=== PATIENT | male | born 1945 | race Caucasian/White ===

== ENCOUNTER 2016-08-24 15:20 | Emergency (ER) | payer MEDICARE, OTHER ==
--- NOTE | 2016-08-24 16:53 | RAD ---
INDICATION: Weakness COMPARISON: Most recent comparison chest x-rays dated November 17, 2007 TECHNIQUE: PA and lateral views of the chest were obtained. FINDINGS: There is been interval placement of a left upper chest cardiac pacemaker with one lead overlying the heart. The heart is not pathologically enlarged. There is faint calcification overlying the arch of the aorta. The contours of the heart and mediastinum are within normal limits. The right lung is grossly clear. There is linear density at the left lung base causing left costophrenic angle blunting. Visualized bones are normal for the patient's age. There is no radiographic evidence of free air beneath the diaphragm IMPRESSION: LIKELY INTERVAL APPEARANCE OF A LEFT-SIDED PLEURAL EFFUSION WITH ADJACENT COMPRESSIVE ATELECTASIS.
[2016-08-24 17:46] LABS: Hematocrit 46 % (42-52); Hemoglobin 15.1 g/dl (14.0-18.0); Mean Corpuscular HGB Conc 33 g/dl (31-36); Mean Corpuscular Hemoglobin 29 pg (27-31); Mean Corpuscular Volume 89 fL (80-94); Mean Platelet Volume 11 um3 (7.4-10.4); Red Cell Distribution Width 13 % (10.5-15); White Blood Count 11.5 10^3/ul (3.5-10.8)
[2016-08-24 17:57] LABS: Add Diff/Slide Review? Slide Review Added; Comments Flag Yes
[2016-08-24 18:01] LABS: Albumin 3.8 g/dL (3.2-5.2); BUN/Creatinine Ratio 17.4 (8-20); Calcium 9.4 mg/dL (8.6-10.3); EGFR African American 80.2 (>60); EGFR Non-African American 62.3 (>60); Globulin 3.2 g/dL (2-4); Total Bilirubin 0.4 mg/dL (0.2-1.0)
[2016-08-24 18:03] LABS: Troponin I 0.01 ng/mL (<0.04)
[2016-08-24 18:14] LABS: TSH (Thyroid Stimulating Horm) 0.54 mcIU/mL (0.34-5.60)
[2016-08-24 18:18] LABS: Potassium 4.1 mmol/L (3.5-5.0)
[2016-08-24 19:08] LABS: Urine Bilirubin Negative (Negative); Urine Glucose Negative (Negative); Urine Nitrite Negative (Negative)
--- NOTE | 2016-08-24 20:23 | RAD ---
INDICATION: Dizziness COMPARISON: CT brain May 26, 2014 TECHNIQUE: Noncontrast axial source images were acquired from the skull base to the vertex. FINDINGS: Ventricles/sulci: The ventricles and cisterns are normal in size and configuration for age. Brain parenchyma: There is no acute focal parenchymal finding, evidence of intracranial mass, or intracranial mass effect. 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 Extra-axial spaces: There are no abnormal extra axial fluid collections or evidence of extra-axial mass. Calvarium: There is no calvarial fracture or other calvarial abnormality. Scalp: There is no evidence of scalp or extracalvarial soft tissue abnormality. Paranasal sinuses/mastoid: The paranasal sinuses and mastoid air cells are clear. Other: None. 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 No acute intracranial findings.
[2016-08-24 21:08] VITALS: BP 123/74
--- NOTE | 2016-08-24 22:04 | ED ---
Ivy Lutz Erika, scribed for Diaz Redman MD on 08/24/16 at 1649 . Dizziness - HPI Summary HPI Summary: Patient is a 71-year-old male presenting to the ED with a CC of lightheadedness. Patient reports that he has been constantly fatigued for the past 2-3 weeks, and has difficulty walking due to fatigue. He notes associated SOB with this. Patient also reports intermittent lightheadedness for the same amount of time, which has been gradually worsening. Pt states he has not fallen. He denies chest pain and pedal edema. Patient reports he is asymptomatic while lying down. - History Of Current Complaint Chief Complaint: EDDizziness Stated Complaint: FATIGUE,DIZZINESS Time Seen by Provider: 08/24/16 15:35 Hx Obtained From: Patient, Family/Supervisor Net Making - Onset/Duration: Still Present Timing: Intermittent Episode Lasting - minutes Severity Currently: Moderate Character: Lightheaded Aggravating Factor(s): Supine To Erect Alleviating Factor(s): Rest, Lying Down Associated Signs And Symptoms: Positive: SOB, Other: - fatigue. Negative: Chest Pain - Allergies/Home Medications Allergies/Adverse Reactions: Allergies Allergy/AdvReac Type Severity Reaction Status Date / Time Heparin Allergy Unknown Verified 08/24/16 15:27 Reaction Details Iodine Allergy Unknown Verified 08/24/16 15:27 Reaction Details PMH/Surg Hx/FS Hx/Imm Hx Cardiovascular History: Reports: Hx Coronary Artery Disease, Hx Hypertension Musculoskeletal History: Reports: Hx Back Problems Sensory History: Reports: Hx Contacts or Glasses - Reading glasses Opthamlomology History: Reports: Hx Contacts or Glasses - Reading glasses - Surgical History Surgery Procedure, Year, and Place: Hx of back surgery, cardiac cath, appendectomy Infectious Disease History: No Infectious Disease History: Denies: Traveled Outside the [place] in Last 30 Days - Family History Known Family History: Positive: Cardiac Disease - CAD, [place] - Social History Lives: With Family Alcohol Use: None Hx Substance Use: No Substance Use Type: Reports: None Hx Tobacco Use: No Smoking Status (MU): Never Smoked Tobacco Review of Systems Positive: Fatigue Negative: Chest Pain Positive: Shortness Of Breath Negative: Edema Neurological: Other - lightheadedness All Other Systems Reviewed And Are Negative: Yes Physical Exam Triage Information Reviewed: Yes Vital Signs On Initial Exam: Initial Vitals Temp Pulse Resp BP Pulse Ox 97.3 F 92 18 138/80 97 08/24/16 15:21 08/24/16 15:21 08/24/16 15:21 08/24/16 15:21 08/24/16 15:21 Vital Signs Reviewed: Yes Appearance: Positive: Well-Appearing, No Pain Distress Skin: Positive: Warm, Skin Color Reflects Adequate Perfusion, Dry Head/Face: Positive: Normal Head/Face Inspection Eyes: Positive: Normal ENT: Positive: Normal ENT inspection Respiratory/Lung Sounds: Positive: Clear to Auscultation, Breath Sounds Present Cardiovascular: Positive: RRR Abdomen Description: Positive: Nontender, Soft Bowel Sounds: Positive: Present Musculoskeletal: Positive: Normal Neurological: Positive: Normal Psychiatric: Positive: Affect/Mood Appropriate Diagnostics - Vital Signs Vital Signs Temp Pulse Resp BP Pulse Ox 08/24/16 15:24 97.3 F 90 19 138/80 96 08/24/16 15:21 97.3 F 92 18 138/80 97 - Laboratory Lab Results: Lab Results 08/24/16 08/24/16 08/24/16 Range/Units 17:30 17:30 17:30 WBC 11.5 H (3.5-10.8) 10^3/ul RBC 5.20 (4.0-5.4) 10^6/ul Hgb 15.1 (14.0-18.0) g/dl Hct 46 (42-52) % MCV 89 (80-94) fL MCH 29 (27-31) pg MCHC 33 (31-36) g/dl RDW 13 (10.5-15) % Plt Count 205 (150-450) 10^3/ul MPV 11 H (7.4-10.4) um3 Neut % (Auto) 68.1 (38-83) % Lymph % (Auto) 19.7 L (25-47) % Sharkey % (Auto) 10.9 H (1-9) % Eos % (Auto) 1.1 (0-6) % Baso % (Auto) 0.2 (0-2) % Absolute Neuts (auto) 7.9 H (1.5-7.7) 10^3/ul Absolute Lymphs (auto) 2.3 (1.0-4.8) 10^3/ul Absolute Monos (auto) 1.3 H (0-0.8) 10^3/ul Absolute Eos (auto) 0.1 (0-0.6) 10^3/ul Absolute Basos (auto) 0 (0-0.2) 10^3/ul Absolute Nucleated RBC 0 10^3/ul Nucleated RBC % 0 INR (Anticoag Therapy) 3.08 H (0.89-1.11) Sodium 139 (133-145) mmol/L Potassium 4.1 (3.5-5.0) mmol/L Chloride 105 (101-111) mmol/L Carbon Dioxide 31 (22-32) mmol/L Anion Gap 3 (2-11) mmol/L BUN 20 (6-24) mg/dL Creatinine 1.15 (0.67-1.17) mg/dL Est GFR ( Amer) 80.2 (>60) Est GFR (Non-Af Amer) 62.3 (>60) BUN/Creatinine Ratio 17.4 (8-20) Glucose 126 H (70-100) mg/dL Lactic Acid (0.5-2.0) mmol/L Calcium 9.4 (8.6-10.3) mg/dL Magnesium 2.0 (1.9-2.7) mg/dL Total Bilirubin 0.40 (0.2-1.0) mg/dL AST 19 (13-39) U/L ALT 22 (7-52) U/L Alkaline Phosphatase 80 (34-104) U/L Troponin I 0.01 (<0.04) ng/mL B-Natriuretic Peptide ( - 100) pg/mL Total Protein 7.0 (6.4-8.9) g/dL Albumin 3.8 (3.2-5.2) g/dL Globulin 3.2 (2-4) g/dL Albumin/Globulin Ratio 1.2 (1-3) TSH 0.54 (0.34-5.60) mcIU/mL Urine Color Urine Appearance Urine pH (5-9) Ur Specific [place] (1.010-1.030) Urine Protein (Negative) Urine Ketones (Negative) Urine Blood (Negative) Urine Nitrate (Negative) Urine Bilirubin (Negative) Urine Urobilinogen (Negative) Ur Leukocyte Esterase (Negative) Urine Glucose (Negative) 04/11/17 04/11/17 04/11/17 Range/Units 17:30 17:30 18:57 WBC (3.5-10.8) 10^3/ul RBC (4.0-5.4) 10^6/ul Hgb (14.0-18.0) g/dl Hct (42-52) % MCV (80-94) fL MCH (27-31) pg MCHC (31-36) g/dl RDW (10.5-15) % Plt Count (150-450) 10^3/ul MPV (7.4-10.4) um3 Neut % (Auto) (38-83) % Lymph % (Auto) (25-47) % Sharkey % (Auto) (1-9) % Eos % (Auto) (0-6) % Baso % (Auto) (0-2) % Absolute Neuts (auto) (1.5-7.7) 10^3/ul Absolute Lymphs (auto) (1.0-4.8) 10^3/ul Absolute Monos (auto) (0-0.8) 10^3/ul Absolute Eos (auto) (0-0.6) 10^3/ul Absolute Basos (auto) (0-0.2) 10^3/ul Absolute Nucleated RBC 10^3/ul Nucleated RBC % INR (Anticoag Therapy) (0.89-1.11) Sodium (133-145) mmol/L Potassium (3.5-5.0) mmol/L Chloride (101-111) mmol/L Carbon Dioxide (22-32) mmol/L Anion Gap (2-11) mmol/L BUN (6-24) mg/dL Creatinine (0.67-1.17) mg/dL Est GFR ( Amer) (>60) Est GFR (Non-Af Amer) (>60) BUN/Creatinine Ratio (8-20) Glucose (70-100) mg/dL Lactic Acid 1.2 (0.5-2.0) mmol/L Calcium (8.6-10.3) mg/dL Magnesium (1.9-2.7) mg/dL Total Bilirubin (0.2-1.0) mg/dL AST (13-39) U/L ALT (7-52) U/L Alkaline Phosphatase (34-104) U/L Troponin I (<0.04) ng/mL B-Natriuretic Peptide 145 H ( - 100) pg/mL Total Protein (6.4-8.9) g/dL Albumin (3.2-5.2) g/dL Globulin (2-4) g/dL Albumin/Globulin Ratio (1-3) TSH (0.34-5.60) mcIU/mL Urine Color Yellow Urine Appearance Clear Urine pH 5.0 (5-9) Ur Specific [place] 1.017 (1.010-1.030) Urine Protein Negative (Negative) Urine Ketones Negative (Negative) Urine Blood Negative (Negative) Urine Nitrate Negative (Negative) Urine Bilirubin Negative (Negative) Urine Urobilinogen Negative (Negative) Ur Leukocyte Esterase Negative (Negative) Urine Glucose Negative (Negative) Result Diagrams: 08/24/16 17:30 08/24/16 17:30 Lab Statement: Any lab studies that have been ordered have been reviewed, and results considered in the medical decision making process. - Radiology CXR Radiology Interpretation Completed By: Radiologist - IMPRESSION: LIKELY INTERVAL APPEARANCE OF A LEFT-SIDED PLEURAL EFFUSION WITH ADJACENT COMPRESSIVE ATELECTASIS. 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 No acute intracranial findings. - EKG 15:31 Cardiac Rate: NL - at 88 bpm EKG Rhythm: Sinus Rhythm Ectopy: PVCs EKG Interpretation: LVH. ST elevation, unchanged from 05/25/2014 Re-Evaluation - Re-Evaluation First Eval Re-Evaluation Time: 19:42 Comment: Discussed lab and imaging results. Patient requests CT Brain Second Eval Re-Evaluation Time: 20:52 Comment: Discussed brain CT results Dizzy Course/Dx - Course Course Of Treatment: Mr. Adam's W/U did not reveal the source of his symptoms but we have R/U'd any acute dangerous condition and I think he can go for F/U. - Diagnoses Provider Diagnoses: Fatigue Discharge - Discharge Plan Condition: Stable Disposition: HOME Patient Education Materials: Weakness (ED) Referrals: Vania Ramirez MD [Primary Care Provider] - Additional Instructions: Please follow up with Dr. Ramirez. The documentation as recorded by the Ivy freeman Erika accurately reflects the service I personally performed and the decisions made by me, Diaz Redman MD.
== END 2016-08-24 21:07 | disposition home or self-care (01) ==
LOC: ED 15:20
DX: R53.83 Other fatigue (principal); I25.10 Atherosclerotic heart disease of native coronary artery without angina pectoris; I10 Essential (primary) hypertension
CPT/HCPCS: 36415; 70450; 71020; 80053; 81003; 83605; 83735; 83880; 84443; 84484; 85025; 85610; 93005; 99283

== ENCOUNTER 2017-11-10 12:41 | Inpatient (IN) | payer MEDICARE, OTHER ==
[2017-11-10] MEDS ORDERED: Orphenadrine Citrate IV* 30 MG/ML 2 ML VIAL IM ONE (13:00)
[2017-11-10] MEDS ORDERED: oxyCODONE/Acetamin 5/325 MG* TAB PO ONE ×2 (13:01→14:21)
[2017-11-10 13:33] LABS: ABS Basophils 0.1 10^3/ul (0-0.2); ABS Eosinophils 0.2 10^3/ul (0-0.6); ABS Lymphocytes 1.3 10^3/ul (1.0-4.8); ABS Monocytes 0.9 10^3/ul (0-0.8); ABS Neutrophils 9.5 10^3/ul (1.5-7.7); ABS Nucleated RBC 0 10^3/ul; Eosinophil % 1.8 % (0-6); Hematocrit 50 % (42-52); Hemoglobin 16.5 g/dl (14.0-18.0); Lymphocyte % 10.8 % (25-47); Mean Corpuscular HGB Conc 33 g/dl (31-36); Mean Corpuscular Hemoglobin 30 pg (27-31); Mean Corpuscular Volume 90 fL (80-94); Mean Platelet Volume 10.4 um3 (7.4-10.4); Nucleated Red Blood Cells % 0; Platelet Count 238 10^3/ul (150-450); Red Blood Count 5.55 10^6/ul (4.00-5.40); Red Cell Distribution Width 14 % (10.5-15); White Blood Count 12.1 10^3/ul (3.5-10.8)
[2017-11-10 13:42] LABS: INR 1.88 (0.77-1.02)
--- NOTE | 2017-11-10 13:42 | RAD ---
Indication: Back pain, right flank pain. CT of the abdomen and pelvis was performed without oral or IV contrast administration. Coronal and sagittal reconstructed images were obtained. The lung bases demonstrate left basilar atelectasis. Heart demonstrates no pericardial effusion. Liver is normal in size. No focal lesions or intrahepatic ductal dilatation is noted. The spleen is normal in size. The pancreas demonstrates no mass or pancreatic duct dilatation. The gallbladder demonstrates no calcified gallstones, pericholecystic fluid or wall thickening. The spleen is normal in size. No adrenal masses are noted. The kidneys demonstrate no hydronephrosis in either kidney. No hydroureter is identified. Atherosclerotic aorta is noted. No dilated loops of bowel are noted. The colon is filled with stool. Urinary bladder and prostate are otherwise unremarkable. The visualized bony structures are grossly unremarkable. IMPRESSION: No definite obstructive uropathy is noted.
--- NOTE | 2017-11-10 16:33 | RAD ---
Indication: Low back pain. Comparison: September 28, 2016 lumbar sacral spine radiographs. Technique: Noncontrast CT lumbar sacral spine. Multiplanar reformation. Report: Negative for paraspinal hematoma. Negative for suspicious focal osseous lesions. Negative for fracture or spondylolysis at any level. Normal vertebral alignment without spondylolisthesis at any level. T12-L1: Unremarkable disc level for age without acquired spinal stenosis. L1-L2: Unremarkable disc level for age without acquired spinal stenosis. L2-L3: Mild facet joint osteoarthritis. Negative for spinal stenosis. L3-L4: Mild annular disc bulge and facet joint osteoarthritis without significant spinal stenosis. L4-L5: Severe disc space narrowing and mild vertebral endplate osteophytosis. Partially calcified broad posterior disc extrusion with caudal extension and moderate resulting impression on the ventral margin of the thecal sac consistent with moderate acquired central canal stenosis. Degenerative spondylosis and facet joint osteoarthritis results in moderate RIGHT and mild LEFT foraminal stenosis. L5-S1: Severe disc space narrowing. Mild annular disc bulge. Negative for significant central canal stenosis. Degenerative spondylosis and facet joint osteoarthritis results in moderate bilateral foraminal stenosis. IMPRESSION: #. Negative for fracture. #. Multilevel degenerative spondylosis and facet joint osteoarthritis with resulting acquired spinal stenosis at L4-L5 and L5-S1 as described.
[2017-11-10] MEDS ORDERED: Ondansetron INJ* 2 MG/ML VIAL IV PRN (17:20)
[2017-11-10] MEDS ORDERED: oxyCODONE/Acetamin 5/325 MG* TAB PO PRN (17:20)
[2017-11-10] MEDS ORDERED: Acetaminophen TAB* 325 MG PO PRN (17:20)
[2017-11-10] MEDS ORDERED: Al Hydrox/Mg Hydrox/Simet LIQ* 30 ML UDC PO PRN (17:20)
[2017-11-10] MEDS ORDERED: Magnesium Hydroxide LIQ* 30 ML UDC PO PRN (17:20)
[2017-11-10] MEDS ORDERED: Morphine VIAL* 4 MG/ML VIAL (1 ml vial) IV PRN (17:20)
[2017-11-10] MEDS ORDERED: Albuterol 2.5 MG/3 ML NEB.SOL* (0.083%) INH PRN (17:20)
--- NOTE | 2017-11-10 17:25 | ED ---
Tena Lutz Emily, scribed for Chinmay Montelongo on 11/10/17 at 1300 . Back Pain - HPI Summary HPI Summary: This patient is a 72 year old M BIBA to [facility] accompanied by with a chief complaint of acute on chronic back pain that began 3 days ago. The patient rates the pain 10/10 in severity. Symptoms aggravated by movement. Symptoms alleviated by nothing. Patient reports difficulty ambulating and urinary incontinence (chronic). Patient denies abd pain. Pt reports that he has chronic L4 herniated disc. - History of Current Complaint Stated Complaint: BACK PAIN Time Seen by Provider: 11/10/17 12:53 Hx Obtained From: Patient Onset/Duration: Sudden Onset, Lasting Days, Still Present Onset/Duration: Started Days Ago, Atraumatic, Still Present Timing: Constant Back Pain Location: Is Diffuse Severity Initially: Severe Severity Currently: Severe Pain Intensity: 10 Pain Scale Used: 0-10 Numeric Aggravating Symptom(s): Movement Alleviating Symptom(s): Nothing Associated Signs And Symptoms: Positive: Bladder Incontinence, Other - Positive difficulty ambulating. Negative: Abdominal Pain Related History: Previous Back Injury - Allergies/Home Medications Allergies/Adverse Reactions: Allergies Allergy/AdvReac Type Severity Reaction Status Date / Time heparin Allergy Hives Verified 11/10/17 15:01 iodine Allergy Hives Verified 11/10/17 15:01 Home Medications: Home Medications Cholecalciferol TAB* [Vitamin D TAB*] 5,000 unit PO DAILY 11/10/17 [History Confirmed 11/10/17] Furosemide TAB* [Lasix TAB*] 20 mg PO EVERY OTHER DAY 11/10/17 [History Confirmed 11/10/17] Garlic [Garlic Oil 1500] 5,000 mg PO DAILY 11/10/17 [History Confirmed 11/10/17] Mirabegron (NF) [Myrbetriq (NF)] 50 mg PO DAILY 11/10/17 [History Confirmed ] Rosuvastatin (NF) [Crestor (NF)] 40 mg PO DAILY 11/10/17 [History Confirmed ] Spironolactone TAB* [Aldactone TAB*] 12.5 mg PO EVERY OTHER DAY 11/10/17 [ History Confirmed 11/10/17] Ubidecarenone [Coq10] 100 mg PO DAILY 11/10/17 [History Confirmed 11/10/17] Venlafaxine EXT RELEASE CAP* [Effexor Xr CAP*] 75 mg PO DAILY 11/10/17 [History Confirmed 11/10/17] Warfarin TAB(*) [Coumadin TAB(*)] 5 mg PO DAILY 11/10/17 [History Confirmed ] PMH/Surg Hx/FS Hx/Imm Hx Previously Healthy: No Cardiovascular History: Reports: Hx Coronary Artery Disease, Hx Hypertension, Hx Pacemaker/ICD Respiratory History: Denies: Hx Asthma Musculoskeletal History: Reports: Hx Back Problems Sensory History: Reports: Hx Contacts or Glasses - Reading glasses Opthamlomology History: Reports: Hx Contacts or Glasses - Reading glasses - Surgical History Surgery Procedure, Year, and Place: Hx of back surgery, cardiac cath, appendectomy Hx Anesthesia Reactions: No Infectious Disease History: No Infectious Disease History: Denies: Traveled Outside the [place] in Last 30 Days - Family History Known Family History: Positive: Cardiac Disease - CAD, [place] - Social History Occupation: Retired Lives: With Family Alcohol Use: None Hx Substance Use: No Substance Use Type: Reports: None Hx Tobacco Use: No Smoking Status (MU): Never Smoked Tobacco Review of Systems Positive: incontinence Positive: Other - Positive back pain and difficulty ambulating All Other Systems Reviewed And Are Negative: Yes Physical Exam - Summary Physical Exam Summary: Appearance: Well appearing, no pain distress Skin: warm, dry, reflects adequate perfusion Head/face: normal Eyes: EOMI, CLAUDETTE ENT: normal Neck: supple, non-tender Respiratory: CTA, breath sounds present Cardiovascular: RRR, pulses symmetrical Abdomen: non-tender, soft Bowel: present Musculoskeletal: mild tenderness over lumbar spine, strength/ROM intact Neuro: normal, sensory motor intact, A&Ox3 Triage Information Reviewed: Yes Vital Signs On Initial Exam: Initial Vitals Temp Pulse Resp BP Pulse Ox 97.9 F 73 16 129/76 99 11/10/17 12:52 11/10/17 12:52 11/10/17 12:52 11/10/17 12:52 11/10/17 12:52 Vital Signs Reviewed: Yes Diagnostics - Vital Signs Vital Signs Temp Pulse Resp BP Pulse Ox 11/10/17 12:52 97.9 F 73 16 129/76 99 - Laboratory Result Diagrams: 11/10/17 13:21 06/28/18 13:21 Lab Statement: Any lab studies that have been ordered have been reviewed, and results considered in the medical decision making process. - CT Abdomen/Pelvis CT CT Interpretation Completed By: Radiologist - Abdomen/Pelvis CT reveals, per radiologist, no definite obstructive uropathy is noted. ED physician has reviewed this radiology report. Lumbar Spine CT CT Interpretation Completed By: Radiologist - Lumbar spine CT reveals, per radiologist, negative for fracture. Multilevel degenerative spondylosis and facet joint osteoarthritis with resulting acquired spinal stenosis aat L4-L5 and L5-S1 as described. ED physician has reviewed this radiology report. Re-Evaluation - Re-Evaluation First Eval Re-Evaluation Time: 14:20 Change: Unchanged Comment: Pt is still in severe pain. Cannot sit up. Back Pain Course/Dx - Course Course Of Treatment: This patient is a 72 year old M BIBA to [facility] accompanied by with a chief complaint of acute on chronic back pain that began 3 days ago. Pt reports that he has chronic L4 herniated disc. Abdomen/Pelvis CT reveals , per radiologist, no definite obstructive uropathy is noted. Lumbar spine CT reveals, per radiologist, negative for fracture. Multilevel degenerative spondylosis and facet joint osteoarthritis with resulting acquired spinal stenosis aat L4-L5 and L5-S1 as described. Blood work and UA obtained. In the ED course the patient was given Norflex and Percocet. Consult with Dr. Abreu ( hospitalist) at 1448. He recommends an MRI of the spine. Consult with Dr. Abreu (hospitalist) at 1537. I communicated that he could not have an MRI due to his ICD. Dr. Abreu recommended a CT scan. Consult with Dr. Abreu ( hospitalist) at 1620. He agrees to admit pt for further evaluation. The patient is agreeable with this plan. - Diagnoses Differential Diagnosis/HQI/PQRI: Positive: Arthritis, Fracture, Herniated Disc, Renal Colic, Sprain Provider Diagnoses: Back pain, Unable to ambulate, Intractable back pain - Provider Notifications Discussed Care Of Patient With: Ge Abreu Time Discussed With Above Provider: 14:48 Instructed by Provider To: Other - Consult with Dr. Abreu (hospitalist) at 1448. He recommends an MRI of the spine. Consult with Dr. Abreu (hospitalist) at 1537. I communicated that he could not have an MRI due to his ICD. Dr. Abreu recommended a CT scan. Brady (hospitalist) at 1620. He agrees to admit pt for further evaluation. Discharge - Sign-Out/Discharge Documenting (check all that apply): Discharge/Admit/Transfer - Admit [place] [facility] [place] Discharge Plan Condition: Stable Disposition: ADMITTED TO [facility] - Billing Disposition and Condition Condition: STABLE Disposition: Admitted to [facility] The documentation as recorded by the Tena freeman Emily accurately reflects the service I personally performed and the decisions made by , Chinmay Montelongo.
[2017-11-10] MEDS ORDERED: Cyclobenzaprine TAB* 10 MG PO PRN (17:30)
[2017-11-10] MEDS ORDERED: Ketorolac INJ* 15 MG/ML 1 ML VIAL IV PUSH PRN (17:31)
[2017-11-10] MEDS: predniSONE TAB* 20 MG PO SCH (19:10)
[2017-11-10] MEDS: Warfarin TAB(*) 5 MG PO SCH (19:10)
--- NOTE | 2017-11-10 20:03 | HP ---
CC: Dr. Ramirez * ADMISSION HISTORY AND PHYSICAL: DATE OF ADMISSION: 11/10/17 PATIENT OF: Max Abreu MD * (DICTATED BY LANDON OSBORN) PRIMARY CARE PHYSICIAN: Dr. Ramirez. CHIEF COMPLAINT: 1. Lower back pain. 2. Inability to ambulate. HISTORY OF PRESENT ILLNESS: Mr. Pham is a 72-year-old gentleman with past medical history significant for hypertension, hyperlipidemia, coronary artery disease, and history of CVA who presented to the emergency room with a 2 to 3 day history of worsening severe lower back pain. The patient apparently has this issue for years now and has chronic L4 herniated disks for which he has seen a neurologist in the remote past. He has been able to ambulate at home; however, it has become more difficult due to his severe lower back pain and known history of spinal stenosis. He was on his bed this morning and lowered himself into the floor and was not able to stand up due to significant pain. He denies any numbness, weakness, paresthesia, fecal or urinary incontinence. He had laboratory workup in the emergency room that revealed no significant changes. A CT scan of the lumbar spine showed evidence of L4-L5 and L5-S1 spinal stenosis with multilevel degenerative spondylolysis and facet joint osteoarthritis, which likely is the source of his discomfort. Multiple attempts were made for the patient to get out of bed and use some pain medicine and muscle relaxant; however, he continued to have severe pain upon attempt to ambulate for which we were asked to see the patient to consider admission for intractable back pain and for neurological consultation. Besides his back pain , the patient himself denies any chest pain, palpitations, syncope, fall, head trauma, or loss of consciousness. His back pain has been severe; however, denies any numbness, tingling, urinary or fecal incontinence. He is accompanied by his and would like to consider admission for pain control. PAST MEDICAL HISTORY: As mentioned above. Significant for hyperlipidemia, coronary artery disease, hypertension, history of [place], history of CVA most recently in 2014. He has been chronically anticoagulated with warfarin. Anxiety and depression. PAST SURGICAL HISTORY: Significant for appendectomy, cardiac catheterization, and back surgery in the remote past. HOME MEDICATIONS: His medications at home include: 1. Vitamin D tablet 5000 units p.o. daily. 2. Lasix 20 mg p.o. every other day. 3. Garlic 5000 mg p.o. daily. 4. Mirabegron 50 mg p.o. daily. 5. Crestor 40 mg p.o. daily. 6. Aldactone 12.5 mg p.o. q.h.s. 7. Q10 of 100 mg p.o. daily. 8. Effexor 75 mg p.o. daily. 9. Warfarin 5 mg p.o. daily. ALLERGIES: He is allergic to HEPARIN which apparently caused heparin-induced thrombocytopenia in the past as well as IODINE. FAMILY HISTORY: Father with history of [place] and mother is , unknown cause of . SOCIAL HISTORY: The patient has never smoked. He does not drink alcohol. He is with children, and the surrogate decision maker is his Scott. REVIEW OF SYSTEMS: See HPI. Otherwise, 14-point review of systems was evaluated and was essentially negative. PHYSICAL EXAMINATION GENERAL: He is a pleasant older gentleman, healthy appearing, and in no acute distress or discomfort at the time of admission. VITAL SIGNS: Revealed blood pressure of 132/78, pulse of 63, temperature of 97.9, O2 sat of 92% on room air. HEENT: Head is normocephalic, atraumatic. Sclerae anicteric. PERRLA. EOMs intact. Oropharynx is pink and moist. NECK: Supple. Trachea midline. No cervical adenopathy, thyromegaly, or JVD. LUNGS: Clear to auscultation bilaterally. HEART: Regular rate and rhythm. Normal S1, S2 without rubs, murmurs, or gallops. BACK: With normal curvature. No CVA tenderness. There is moderate tenderness along mid lumbar to sacral area on palpation with some muscle tension noted in the area. There is no ecchymosis or swelling noted. RECTAL: Exam deferred at this time. NEUROLOGIC: Handgrip is equal bilaterally. Sensation is intact throughout. Tongue is midline. He is awake, alert, and oriented x4. Grossly intact. Remainder of exam is essentially negative. LABORATORY WORKUP: CBC with white count of 12,000, hemoglobin of 16.5, hematocrit of 50, and platelets of 238,000. His coagulation was INR of 1.88 and PTT of 40.9. Chemistry panel: Sodium 138, potassium 4.2, chloride 103, CO2 of 28, BUN 18, creatinine 1.3, glucose 127. LFTs and lipase within normal limits. ACCESSORY DIAGNOSTIC DATA: Lumbar spine CT scan showed evidence of multilevel degenerative spondylolysis and facet joint osteoarthritis with spinal stenosis noted at L4-L5 and L5-S1 and it was negative for any compression fracture. IMPRESSION: A 72-year-old gentleman with past medical history significant for hypertension, hyperlipidemia, coronary artery disease, with history of myocardial infarction and cerebrovascular accident in the past, who presented to the emergency room with worsening lower back pain and inability to ambulate secondary to pain with longstanding history of chronic spinal stenosis and related back pain. ASSESSMENT AND PLAN: 1. Chronic back pain. The patient will be admitted for observation and neurological consultation. I have spoken to Dr. Kaur who will see the patient tomorrow morning. He had reviewed the CT scan of the lumbar spine and recommended pain medication, muscle relaxant, and possibly steroids to alleviate his symptoms. The patient appears to be neurologically intact with no evidence of any numbness, tingling, fecal or urinary incontinence, or any signs suggesting cauda equina. MRI was initially required; however, the patient has a pacemaker, for which CT scan was done at this time; however, MRI would be recommended as an outpatient in the near future. We also discussed the possibility of neurosurgical consultation if the patient desired to have the surgery done closer to home. Again, we will manage with pain control, muscle relaxant, awaiting neurological recommendation tomorrow. 2. Hypertension. We will continue his Lasix and other antihypertensive medications. He appears to be normotensive at the time of admission. 3. History of cerebrovascular accident. Appears to be stable with no issues at this admission. 4. Hyperlipidemia. We will continue his statin. 5. History of coronary artery disease. We will continue his statin as well as aspirin. The patient also has been on warfarin therapy since 2015 and we will continue that given his high risk for a cerebrovascular accident. 6. History of heparin-induced thrombocytopenia. We will avoid heparin products and we will use SCDs for DVT prophylaxis since he is on Coumadin already. 7. DVT prophylaxis: He will be placed on SCDs. 8. Code status: He is a full code. 7. Disposition: Admit under medical services for pain control of chronic back pain and spinal stenosis, awaiting neurological recommendation. Possible neurosurgical consultation in the morning if needed. TIME SPENT: Approximately 60 minutes were spent admitting this patient, with greater than 50% on taking history and performing physical exam. I have discussed the case with Dr. Abreu, my attending, who agreed to plan of care. LANDON OSBORN [id number]/[facility] #: [id number] VALDEZ
[2017-11-10] MEDS: Docusate CAP* 100 MG PO SCH (21:28)
[2017-11-11 06:52] LABS: Hematocrit 49 % (42-52); Hemoglobin 16.4 g/dl (14.0-18.0); Mean Corpuscular HGB Conc 34 g/dl (31-36); Mean Corpuscular Hemoglobin 30 pg (27-31); Mean Corpuscular Volume 90 fL (80-94); Mean Platelet Volume 10.2 um3 (7.4-10.4); Platelet Count 235 10^3/ul (150-450); Red Blood Count 5.41 10^6/ul (4.00-5.40); Red Cell Distribution Width 14 % (10.5-15); White Blood Count 10.4 10^3/ul (3.5-10.8)
[2017-11-11 06:59] LABS: INR 2.46 (0.77-1.02)
[2017-11-11 07:12] LABS: EGFR Non-African American 66.8 (>60)
[2017-11-11 07:14] LABS: ABS Basophils 0.1 10^3/ul (0-0.2); ABS Eosinophils 0 10^3/ul (0-0.6); ABS Monocytes 0.1 10^3/ul (0-0.8); ABS Neutrophils 9.1 10^3/ul (1.5-7.7); ABS Nucleated RBC 0 10^3/ul; Eosinophil % 0.3 % (0-6); Lymphocyte % 10.1 % (25-47); Nucleated Red Blood Cells % 0
[2017-11-11 07:58] LABS: Urine Appearance Clear; Urine Blood Negative (Negative); Urine Color Yellow; Urine Ketones 1+ (Negative); Urine Protein Negative (Negative); Urine Specific Gravity 1.027 (1.010-1.030); Urine Urobilinogen Negative (Negative)
[2017-11-11] MEDS: Venlafaxine EXT RELEASE CAP* 75 MG PO SCH (08:29)
[2017-11-11] MEDS: Cholecalciferol TAB* 1000 UNITS PO SCH (08:29)
[2017-11-11] MEDS: predniSONE TAB* 20 MG PO SCH (08:30)
[2017-11-11] MEDS: CMCS Rosuvastatin (NF) 20 MG TAB PO SCH (08:30)
[2017-11-11] MEDS: Docusate CAP* 100 MG PO SCH ×2 (08:31→20:45)
[2017-11-11] MEDS: Coenzyme Q10 (NF) ** ENTER STREGNTH IN LABEL DIRECTIONS PO SCH (08:32)
[2017-11-11] MEDS: Mirabegron (NF) 50 MG TAB PO SCH (08:33)
[2017-11-11] MEDS: Gabapentin CAP(*) 100 MG PO SCH ×2 (14:41→20:45)
--- NOTE | 2017-11-11 14:55 | PN ---
Subjective Date of Service: 11/11/17 Interval History: Pt seen and examined. Meds and labs reviewed. RN earlier reported 3 beats of non-sustained VT. No other o/n issues. ROS: Complains of 4-5/10 pain while supine and excruciating pain while walking and afraid to do so. Denied AMEZCUA/dizziness, F/C, N/V, CP, SOB, increased cough, sputum production, abd pain, diarrhea, constipation, dysuria, throat pain, and new skin lesions. The rest of the 14 point ROS are unremarkable. PHYSICAL EXAM: GEN APPEARANCE: Awake, not in acute distress, pt sometimes stutters due to previous CVA HEENT: NC/AT, PERRLA, moist oral mucosa, (-) throat erythema NECK: Soft, supple, (-) cervical LAD, (-)JVD HEART: S1S2 WNL, RRR, No MRG CHEST: CTA, BL, GAE, No W/R/R ABD: Soft, ND/NT, NABS 4x Q EXT: No C/C/E SKIN: Warm to touch PSYCH: No active psychosis, hallucinations, depression, SI/HI NEURO: Right sided weakness from previous CVA Objective Active Medications: Acetaminophen (Tylenol Tab*) 650 mg PO Q4H PRN PRN Reason: FEVER/PAIN Al Hydrox/Mg Hydrox/Simethicone (Maalox Plus*) 30 ml PO Q6H PRN PRN Reason: INDIGESTION Albuterol (Ventolin 2.5 Mg/3 Ml Neb.Sammie*) 2.5 mg INH RT.[id number] AWAKE PRN PRN Reason: sob/wheezing Cholecalciferol (Vitamin D Tab*) 5,000 units PO DAILY [facility] [place] Last Admin: 11/11/17 08:29 Dose: 5,000 units Coenzyme Q10 (Coenzyme Q10 (Nf)) 0 cap PO DAILY [facility] [place] Last Admin: 11/11/17 08:32 Dose: Not Given Cyclobenzaprine HCl (Flexeril Tab*) 10 mg PO TID PRN PRN Reason: SPASMS - BACK Docusate Sodium (Colace Cap*) 100 mg PO BID [facility] [place] Last Admin: 11/11/17 08:31 Dose: Not Given Furosemide (Lasix Tab*) 20 mg PO EVERY OTHER DAY [facility] [place] Gabapentin (Neurontin Cap(*)) 100 mg PO TID [facility] [place] Ketorolac Tromethamine (Toradol Inj*) 15 mg IV PUSH Q6H PRN PRN Reason: PAIN Magnesium Hydroxide (Milk Of Magnesia Liq*) 30 ml PO Q4H PRN PRN Reason: CONSTIPATION Mirabegron (Myrbetriq (Nf)) 50 mg PO DAILY [facility] [place] Last Admin: 11/11/17 08:33 Dose: Not Given Morphine Sulfate (Morphine Vial*) 2 mg IV Q1H PRN PRN Reason: PAIN Ondansetron HCl (Zofran Inj*) 4 mg IV Q4H PRN PRN Reason: NAUSEA/VOMITING Oxycodone HCl (Oxycontin(*)) 15 mg PO Q12HR [facility] [place] Oxycodone/Acetaminophen (Percocet 5/325 Tab*) 2 tab PO Q6H PRN PRN Reason: Pain Last Admin: 11/11/17 09:18 Dose: 2 tab Pharmacy Profile Note (Coumadin Daily Reminder*) 1 note FOLLOW UP 1700 [facility] [place] Prednisone (Deltasone Tab*) 40 mg PO DAILY [facility] [place] Last Admin: 11/11/17 08:30 Dose: 40 mg Rosuvastatin Calcium (Crestor (Nf)) 40 mg PO DAILY [facility] [place] Last Admin: 11/11/17 08:30 Dose: 40 mg Spironolactone (Aldactone Tab*) 12.5 mg PO EVERY OTHER DAY [facility] [place] Venlafaxine HCl (Effexor Xr Cap*) 75 mg PO DAILY [facility] [place] Last Admin: 11/11/17 08:29 Dose: 75 mg Warfarin Sodium (Coumadin Tab(*)) 5 mg PO 1700 [facility]; Protocol Last Admin: 11/10/17 19:10 Dose: 5 mg Vital Signs - 8 hr 11/11/17 11/11/17 11/11/17 07:15 09:18 11:44 Temperature 98.0 F 97.4 F Pulse Rate 82 77 Respiratory 20 20 18 Rate Blood Pressure 127/77 128/77 (mmHg) O2 Sat by Pulse 93 95 Oximetry 11/11/17 11:54 Temperature Pulse Rate Respiratory 16 Rate Blood Pressure (mmHg) O2 Sat by Pulse Oximetry Oxygen Devices in Use Now: Nasal Cannula Result Diagrams: 11/11/17 06:45 11/11/17 06:45 Assess/Plan/Problems-Billing Assessment: - Patient Problems (1) Spinal stenosis at L4-L5 level Current Visit: Yes Status: Acute Code(s): M48.061 - SPINAL STENOSIS, LUMBAR REGION WITHOUT NEUROGENIC CLAUDIA SNOMED Code(s): 47249304 Comment: -W/multiple degenerative spondylosis -Will start pt on OxyContin 15 mg PO BID and Gabapentin 100 mg PO TID for synergy -D/W Dr. Kaur; continue current management -D/W Dr. Garcia and will await his official input -Continue Prednisone (2) Hypertension Current Visit: Yes Status: Acute Code(s): I10 - ESSENTIAL (PRIMARY) HYPERTENSION SNOMED Code(s): 74386343 Comment: -Continue Lasix and Spirinolactone (3) Hyperlipidemia Current Visit: Yes Status: Acute Code(s): E78.5 - HYPERLIPIDEMIA, UNSPECIFIED SNOMED Code(s): 05947436 Comment: -Continue Rosuvastatin (4) DVT prophylaxis Current Visit: Yes Status: Acute Code(s): FTH5391 - SNOMED Code(s): 763042380 Comment: -Pt on Warfarin due to previous history of CVA---unclear if embolic in nature but does have history of HIT Status and Disposition: -As above -For PT/OT eval in AM
--- NOTE | 2017-11-11 15:21 | CONS ---
NEUROLOGY CONSULTATION REPORT: DATE OF CONSULT: 11/11/17 CONSULTING PHYSICIAN: Max Abreu MD Neurology was consulted to evaluate Mr. Pham for acute on chronic back pain. CHIEF COMPLAINT: Back pain. HISTORY OF PRESENT ILLNESS: Eduardo Pham is a pleasant 72-year-old right- handed man with history of remote left MCA ischemic stroke with residual mild right hemiparesis and mild expressive aphasia, dyslipidemia, hypertension, coronary artery disease, he is on anticoagulation therapy for left atrial/ ventricular thrombus that was reported by the patient's spouse and he has been on anticoagulation therapy since 2007, he is status post lumbar spine diskectomy in 1981, who presented to [facility] ED on 11/02/17 for progressive low back pain. The patient has chronic low back pain. He can function some days better than others. He uses a cane at baseline when the pain is really bad, but fluctuates between not using any device for ambulating versus a cane. Over the last 1 week, he has been needing to use a cane due to low back pain and gait instability. He stated that on Tuesday, the pain was controlled. He went out shopping with his and had lunch and did not have any significant pain. However, that evening and the following day on Tuesday, the patient was having significant pressure and pulsating pain in the lumbar spine region near his previous surgical incision. He has to lie flat to relieve some of the pressure on his back. When lying flat, the pain is only 4/ 10 in severity, but once he stands up the pain is severe at 7-8/10. He has intermittent radiating pain down the right lower extremity. He denied any impairment in his bowel or bladder functions but since he has had the pain, he cannot make it to the bathroom because of the pain when ambulating. He has not taken any medications for the pain other than Tylenol, which seems to help reduce the pain, but not completely get rid of it. He was not prescribed any muscle relaxers or seen a physical therapist for evaluation. He was started on prednisone last night and was prescribed a muscle relaxer, which seemed to be helping his pain. He was evaluated by a neurologist as an outpatient in the past, but no recommendation for surgery was made. He has never seen an orthopedic or neurosurgical specialist. The patient stated that today the pain is slightly better. He is able to actually stand on his feet with physical therapy. He took a few steps using a walker. He denied any recent falls, fevers, or chills. PAST MEDICAL HISTORY: 1. Dyslipidemia. 2. Hypertension. 3. Myocardial infarction. 4. Congestive heart failure status post ICD placement. 5. Stroke, on Coumadin due to presumed atrial or ventricular thrombus in 2007. 6. The patient also had lumbar spine surgery in 1981. MEDICATIONS: 1. Crestor 40 mg. 2. Venlafaxine 75 mg. 3. Furosemide 20 mg. 4. Spironolactone 12.5 mg. 5. Coumadin 5 mg. ALLERGIES: IODINE. FAMILY HISTORY: No family history of stroke or seizures. SOCIAL HISTORY: He is a and he worked in the department of transportation. He denied any alcohol or tobacco use. He is for 30 years. REVIEW OF SYSTEMS: A 14-point review of systems was obtained and otherwise negative except for what was mentioned in the HPI. PHYSICAL EXAM: Vital Signs: Temperature 98, pulse of 82, respiratory rate of 20, oxygen saturation of 93%, blood pressure 127/77. General: He is a well- nourished, well-developed man in no acute distress. He is very pleasant. His is at bedside and she provided most of the medical history. Head: Atraumatic and normocephalic without any obvious abnormalities. Neck: Supple without any asymmetry. No carotid bruits. Lungs: Clear to auscultation bilaterally with nonlabored breathing. Cardiovascular: Regular rate and rhythm. Normal S1, S2. Extremities: Hammer toes and high arches. Skin: No skin lesions or laceration. The surgical scar seems to be well healed without any induration or erythema. Psych: Affect is broad and normal mood. Spine: Mild tenderness to deep palpation near the L4-L5 paraspinal muscles and in the spinous process, around that region. Straight leg raise positive on the right with radiating pain down the L4 myotome distribution on the right. Mental Status: Awake, alert, and oriented to person, place, time, and general circumstances. Speech and language include expression, naming, and repetitions were intact, but the patient does have trouble with fluency. He is able to comprehend throughout the neurological examination. Cranial Nerves: Normal confrontation testing bilaterally. Pupils are mid range and reactive to light. Normal consensual response. Sensation is intact on the forehead and cheeks. There is right facial droop. This is chronic. Symmetric palatal elevation. Tongue is symmetrical and midline with no atrophy or fasciculation. Motor: Long tract pyramidal signs on the right with weakness in the right triceps graded as 4/5 and mild weakness in the right hamstring graded as 4+/5. Otherwise, he has got 5/5 strength in the distal and upper extremities especially on the left. He has slight increase in tone in the right upper and right lower extremities. Reflexes R/L: Brachioradialis 1/1, biceps 1/1, triceps 1/1, patella 1/2, ankle trace/trace plantar flexor bilaterally. Sensation is reduced to light touch and pinprick in the left arm and left leg. He had absent vibration at the toes and the ankle, but intact at the knees. Intact proprioception at the great toes. Normal [id number] and rapid alternating movements bilaterally. Gait: Wide based, required 1 person assist and the walker. He is having pain ambulating independently. DIAGNOSTIC STUDIES/LAB DATA: CT of the lumbar spine completed on 11/10/17 was reviewed. There is multilevel degenerative spondylosis and facet joint osteoarthritis with resultant acquired spinal stenosis at L4-L5 and L5-S1. There is severe disk space narrowing and mild vertebral endplate osteophytes at L4-L5. ASSESSMENT: 1. Eduardo Pham is a 72-year-old male with history of [id number] low back pain as well as clinical evidence of right L4-L5 radiculopathy. The patient has no evidence of cauda equina syndrome. There is no suspicion for any epidural spinal infection or vertebral fractures. He seems to be responding to the prednisone, muscle relaxers, and narcotics. He partially participated with physical therapy today. The patient and his spouse are requesting to be further evaluated by an orthopedic or a neurosurgical specialist. 2. Remote left MCA vascular territory ischemic infarction presumed to be cardioembolic in etiology. The patient is on Coumadin for stroke prevention as well as a reported history of left atrial/ventricular thrombus. 3. ICD that is MRI incompatible. 4. Hypertension and dyslipidemia, defer to primary team. RECOMMENDATIONS: I recommend continued physical therapy daily. The patient may need rehabilitation. Continue prednisone 40 mg for a total of 5 days. Continue Flexeril 10-15 mg every 12 hours as needed. Defer pain management to the primary team. It is reasonable to get a neurosurgical/orthopedic consultation for further evaluation. Continue neuro checks every 4 hours. If no intervention will be done here, the patient can follow up with our neurology group at [facility] for an EMG/nerve conduction study to evaluate for [id number] radiculopathy or underlying neuropathy. We discussed fall precautions. I will sign off. I discussed these recommendations with Dr. Chand. We will be available for any questions or concerns. [id number]/[facility] #: [id number] MTDD
--- NOTE | 2017-11-11 15:56 | CONSULT ---
Consult Consult: Neurosurgery Consult Date of Admission: 11/10/17 Date of Consult: 11/11/17 Reason for Consult: Low back pain Referring Provider: Dr. Chand HPI: This is a 72 year old male with past medical history significant for CVA on coumadin, HTN, CHF with ICD placement, and history of SD who presented to the [facility] with severe low back pain. He reports a longstanding history of low back pain exacerbations occurring every 5 years or so. He states that when an episode of pain occurs, he experiences severe low back pain but never pain radiating into the lower extremities. Occasionally he experienced RLE tingling sensation which improved without treatment. He typically lays in bed for the next 2-3 days until the back pain is resolved. He has a history of lumbar spine surgery in 1981. This past tuesday, pain began without specific event or injury. He tried to rest for the next few days but the pain persisted and he was unable to manage at home. He was unable to get up out of bed or ambulate, he was using a cane. Movement worsened the pain. He presented to [facility] for evaluation and was admitted for work up. Currently, the pain is improved and he is feeling quite well. He denies current low back pain but did experience pain when he was up with PT earlier today. He denies radiation to the lower extremities, denies numbness, weakness and tingling in the lower extremities. Denies bowel or bladder incontinence. He continues to have difficulty getting up out of bed. While in the hospital he has been treated with pain medication, muscle relaxants and steroids. CT of the lumbar spine was obtained during this admission and was reviewed today. Past Medical History: 1. HTN 2. Stroke 2007 3. HTN 4. Dyslipidemia 5. SD 6. CHF-ICD placed Past Surgical History: 1. ICD placement 2. Lumbar spine surgery 1981 Home Medications: 1. Cholecalciferol TAB* [Vitamin D TAB*] 5,000 unit PO DAILY 11/10/17 [History Confirmed 11/10/17] 2. Furosemide TAB* [Lasix TAB*] 20 mg PO EVERY OTHER DAY 11/10/17 [History Confirmed 11/10/17] 3. Garlic [Garlic Oil 1500] 5,000 mg PO DAILY 11/10/17 [History Confirmed ] 4. Mirabegron (NF) [Myrbetriq (NF)] 50 mg PO DAILY 11/10/17 [History Confirmed 11/10/17] 5. Rosuvastatin (NF) [Crestor (NF)] 40 mg PO DAILY 11/10/17 [History Confirmed 11/10/17] 6. Spironolactone TAB* [Aldactone TAB*] 12.5 mg PO EVERY OTHER DAY 11/10/17 [ History Confirmed 11/10/17] 7. Ubidecarenone [Coq10] 100 mg PO DAILY 11/10/17 [History Confirmed 11/10/17] 8. Venlafaxine EXT RELEASE CAP* [Effexor Xr CAP*] 75 mg PO DAILY 11/10/17 [ History Confirmed 11/10/17] 9. Warfarin TAB(*) [Coumadin TAB(*)] 5 mg PO DAILY 11/10/17 [History Confirmed 11/10/17] Allergies: 1. Heparin 2. Iodine Social History: This patient lives at home with his . He denies smoking and alcohol use. ROS: Full ROS completed. Pertinent findings stated in HPI and all others negative. Physical Exam: Vital Signs: Temp Pulse Resp BP Pulse Ox 98.1 F 73 16 123/68 95 11/11/17 15:52 11/11/17 15:52 11/11/17 16:32 11/11/17 15:52 11/11/17 15:52 General: Alert and oriented. No acute pain, laying comfortably in bed. HEENT: Head is normocephalic and atraumatic. PERRL, EOMI. Gross hearing intact. Neck: Neck is without deformity. Supple and nontender to palpation. CV: Telemetry monitoring. Radial pulses 2+ and equal. Pedal pulses 1+ and equal. Lungs: Breathing is nonlabored and lungs are clear. Abdomen: The abdomen is obese. Normoactive bowel sounds, nondistended and nontender. Neuro: Speech is clear. Able to answer questions appropriately. CN II-XII intact. Strength in upper and lower extremities 5/5 bilaterally. Sensation diminished in the RUE and RLE, baseline secondary to CVA per the patient. SLR creates back pain bilaterally, no leg pain. Reflexes 1+ throughout with exception of absent ankle reflexes bilaterally. Hips: Hip rotation creates back pain bilaterally. Hips nontender to palpation. Imagin. CT lumbar spine on 11/10/17 shows multilevel degenerative disc disease and possible L4-5 stenosis. Assessment and Plan: This is a 72 year old male with significant cardiac history including ICD placement and history of CVA who presented to [facility] with severe low back pain without radiculopathy. CT of the lumbar spine shows degenerative disc disease and possible stenosis at L4-5. CT results were reviewed with the patient and his . I recommended additional imaging for further evaluation. He is unable to undergo MRI secondary to ICD and would therefore need CT myelogram of the lumbar spine. He currently takes coumadin and would need to be cleared to hold that medication prior to this study. The patient would like to proceed with the study, his is not interested due to his existing medical conditions. The procedure was discussed with the patient and his . If he is able to undergo CT myelogram and this study is performed , neurosurgery will review and re-evaluate treatment options. If he is unable to undergo this study or decides not to, I recommend treatment with physical therapy and pain management. Plan was discussed with Dr. Chand.
[2017-11-11] MEDS: Warfarin TAB(*) 5 MG PO SCH (16:32)
[2017-11-11] MEDS: oxyCODONE SR TAB(*) 15 MG TAB.SR PO SCH (20:44)
[2017-11-12] MEDS: Coenzyme Q10 (NF) ** ENTER STREGNTH IN LABEL DIRECTIONS PO SCH (08:09)
[2017-11-12] MEDS: Mirabegron (NF) 50 MG TAB PO SCH (08:09)
[2017-11-12] MEDS: CMCS Rosuvastatin (NF) 20 MG TAB PO SCH (08:18)
[2017-11-12] MEDS: Cholecalciferol TAB* 1000 UNITS PO SCH (08:18)
[2017-11-12] MEDS: Venlafaxine EXT RELEASE CAP* 75 MG PO SCH (08:18)
[2017-11-12] MEDS: predniSONE TAB* 20 MG PO SCH (08:18)
[2017-11-12] MEDS: Spironolactone TAB* 25 MG PO SCH (08:19)
[2017-11-12] MEDS: Gabapentin CAP(*) 100 MG PO SCH ×3 (08:19→20:47)
[2017-11-12] MEDS: oxyCODONE SR TAB(*) 15 MG TAB.SR PO SCH (08:19)
[2017-11-12] MEDS: Furosemide TAB* 20 MG PO SCH (08:19)
[2017-11-12] MEDS: Docusate CAP* 100 MG PO SCH ×2 (08:20→20:47)
[2017-11-12 08:35] LABS: Hematocrit 48 % (42-52); Hemoglobin 16.3 g/dl (14.0-18.0); Mean Corpuscular HGB Conc 34 g/dl (31-36); Mean Corpuscular Hemoglobin 30 pg (27-31); Mean Corpuscular Volume 90 fL (80-94); Mean Platelet Volume 10.9 um3 (7.4-10.4); Platelet Count 227 10^3/ul (150-450); Red Cell Distribution Width 14 % (10.5-15); White Blood Count 15.7 10^3/ul (3.5-10.8)
[2017-11-12 08:55] LABS: EGFR Non-African American 65.4 (>60)
[2017-11-12 10:44] LABS: ABS Basophils 0.2 10^3/ul (0-0.2); ABS Eosinophils 0.1 10^3/ul (0-0.6); ABS Lymphocytes 2.6 10^3/ul (1.0-4.8); ABS Monocytes 1.5 10^3/ul (0-0.8); ABS Neutrophils 11.4 10^3/ul (1.5-7.7); ABS Nucleated RBC 0 10^3/ul; Eosinophil % 0.4 % (0-6); Lymphocyte % 16.7 % (25-47); Nucleated Red Blood Cells % 0.1
[2017-11-12] MEDS: Lidocaine PATCH 5%* 1 PATCH TRANSDERM SCH (15:00)
--- NOTE | 2017-11-12 15:42 | PN ---
Subjective Date of Service: 11/12/17 Interval History: Pt seen and examined. Meds and labs reviewed. Pt now able to stand and feels better than yesterday. However, still expresses reservations with opiates, which is understandable. Please see discussion below. ROS: Complains of 5/10 pain on ambulation and only 2/10 while supine. Denied AMEZCUA/dizziness, F/C, N/V, CP, SOB, increased cough, sputum production, abd pain, diarrhea, constipation, dysuria, throat pain, and new skin lesions. The rest of the 14 point ROS are unremarkable. PHYSICAL EXAM: GEN APPEARANCE: Awake, not in acute distress, pt sometimes stutters due to previous CVA HEENT: NC/AT, PERRLA, moist oral mucosa, (-) throat erythema NECK: Soft, supple, (-) cervical LAD, (-)JVD HEART: S1S2 WNL, RRR, No MRG CHEST: CTA, BL, GAE, No W/R/R ABD: Soft, ND/NT, NABS 4x Q EXT: No C/C/E SKIN: Warm to touch PSYCH: No active psychosis, hallucinations, depression, SI/HI NEURO: Right sided weakness from previous CVA ASSESSMENT AND PLAN: Objective Active Medications: Acetaminophen (Tylenol Tab*) 650 mg PO Q4H PRN PRN Reason: FEVER/PAIN Al Hydrox/Mg Hydrox/Simethicone (Maalox Plus*) 30 ml PO Q6H PRN PRN Reason: INDIGESTION Albuterol (Ventolin 2.5 Mg/3 Ml Neb.Sammie*) 2.5 mg INH [id number] AWAKE PRN PRN Reason: sob/wheezing Cholecalciferol (Vitamin D Tab*) 5,000 units PO DAILY [facility] Last Admin: 11/12/17 08:18 Dose: 5,000 units Coenzyme Q10 (Coenzyme Q10 (Nf)) 0 cap PO DAILY [facility] Last Admin: 11/12/17 08:09 Dose: Not Given Cyclobenzaprine HCl (Flexeril Tab*) 10 mg PO TID PRN PRN Reason: SPASMS - BACK Docusate Sodium (Colace Cap*) 100 mg PO BID [facility] Last Admin: 11/12/17 08:20 Dose: 100 mg Furosemide (Lasix Tab*) 20 mg PO EVERY OTHER DAY [facility] Last Admin: 11/12/17 08:19 Dose: 20 mg Gabapentin (Neurontin Cap(*)) 200 mg PO TID [facility] Ketorolac Tromethamine (Toradol Inj*) 15 mg IV PUSH Q6H PRN PRN Reason: PAIN Lidocaine (Lidoderm 5% Patch*) 1 patch TRANSDERM DAILY [facility] Last Admin: 11/12/17 15:00 Dose: 1 patch Magnesium Hydroxide (Milk Of Magnesia Liq*) 30 ml PO Q4H PRN PRN Reason: CONSTIPATION Mirabegron (Myrbetriq (Nf)) 50 mg PO DAILY [facility] Last Admin: 11/12/17 08:09 Dose: Not Given Morphine Sulfate (Morphine Vial*) 2 mg IV Q1H PRN PRN Reason: PAIN Ondansetron HCl (Zofran Inj*) 4 mg IV Q4H PRN PRN Reason: NAUSEA/VOMITING Oxycodone HCl (Oxycontin(*)) 10 mg PO Q12HR [facility] Oxycodone/Acetaminophen (Percocet 5/325 Tab*) 2 tab PO Q6H PRN PRN Reason: Pain Last Admin: 11/11/17 09:18 Dose: 2 tab Pharmacy Profile Note (Coumadin Daily Reminder*) 1 note FOLLOW UP 1700 [facility] Last Admin: 11/11/17 16:33 Dose: 1 note Pharmacy Profile Note (Lidocaine Patch Remove*) 1 note N/A 2100 [facility] Prednisone (Deltasone Tab*) 30 mg PO DAILY [facility] Rosuvastatin Calcium (Crestor (Nf)) 40 mg PO DAILY [facility] Last Admin: 11/12/17 08:18 Dose: 40 mg Spironolactone (Aldactone Tab*) 12.5 mg PO EVERY OTHER DAY [facility] Last Admin: 11/12/17 08:19 Dose: 12.5 mg Venlafaxine HCl (Effexor Xr Cap*) 75 mg PO DAILY [facility] Last Admin: 11/12/17 08:18 Dose: 75 mg Warfarin Sodium (Coumadin Tab(*)) 5 mg PO 1700 [facility]; Protocol Last Admin: 11/11/17 16:32 Dose: 5 mg Vital Signs - 8 hr 11/12/17 11/12/17 11/12/17 07:44 08:19 10:17 Temperature 97.7 F Pulse Rate 60 Respiratory 18 16 16 Rate Blood Pressure 132/72 (mmHg) O2 Sat by Pulse 97 Oximetry 11/12/17 11/12/17 11/12/17 11:10 11:58 15:00 Temperature 97.8 F Pulse Rate 63 Respiratory 16 18 16 Rate Blood Pressure 134/72 (mmHg) O2 Sat by Pulse 94 Oximetry Oxygen Devices in Use Now: Nasal Cannula Result Diagrams: 11/12/17 08:05 11/12/17 08:05 Assess/Plan/Problems-Billing Assessment: - Patient Problems (1) Spinal stenosis at L4-L5 level Current Visit: Yes Status: Acute Code(s): M48.061 - SPINAL STENOSIS, LUMBAR REGION WITHOUT NEUROGENIC CLAUDIA SNOMED Code(s): 18576544 Comment: -W/multiple degenerative spondylosis -Appreciate both Neurology and Neurosurgery input -Discussed case with Kelly of Neurosurgery yesterday; given pt and unsure of CT myelography given multiple comorbidities and patient currently on Coumadin. Unfortunately, pt unable to go for MRI given his ICD. Will defer with pts PCP to further decide and discuss with pt and family whether this would be a viable option. Kelly mentions this can be appropriately done in the outpatient and hence will defer further discussions with PCP and pt/pts family. -Will decrease OxyContin to 10 mg PO BID given pt concerns for long-term opiate -Increase Gabapentin to 200 mg PO TID for synergy -Will also place pt on Lidocaine patch as ordered -Given mild leukocytosis with improved pain, will start tapering Prednisone (2) Hypertension Current Visit: Yes Status: Acute Code(s): I10 - ESSENTIAL (PRIMARY) HYPERTENSION SNOMED Code(s): 00842379 Comment: -Continue Lasix and Spirinolactone (3) Hyperlipidemia Current Visit: Yes Status: Acute Code(s): E78.5 - HYPERLIPIDEMIA, UNSPECIFIED SNOMED Code(s): 52726088 Comment: -Continue Rosuvastatin (4) DVT prophylaxis Current Visit: Yes Status: Acute Code(s): OLJ5600 - SNOMED Code(s): 187315986 Comment: -Pt on Warfarin due to previous history of CVA---unclear if embolic in nature but does have history of HIT Status and Disposition: -As above -Continue PT/OT and will await any further recommendations
[2017-11-12 16:08] LABS: INR 3.99 (0.77-1.02)
[2017-11-12] MEDS ORDERED: Warfarin TAB(*) 5 MG PO SCH (17:12)
[2017-11-12] MEDS: Warfarin TAB(*) 5 MG PO SCH (17:15)
[2017-11-12] MEDS: oxyCODONE SR TAB(*) 10 MG TAB.SR PO SCH (20:46)
[2017-11-12] MEDS: Lidocaine Patch REMOVE* 1 NOTE MISC SCH (20:49)
[2017-11-13] MEDS: oxyCODONE SR TAB(*) 10 MG TAB.SR PO SCH ×2 (08:19→20:34)
[2017-11-13] MEDS: Gabapentin CAP(*) 100 MG PO SCH ×2 (08:19→13:56)
[2017-11-13] MEDS: Cholecalciferol TAB* 1000 UNITS PO SCH (08:19)
[2017-11-13] MEDS: CMCS Rosuvastatin (NF) 20 MG TAB PO SCH (08:20)
[2017-11-13] MEDS: Venlafaxine EXT RELEASE CAP* 75 MG PO SCH (08:20)
[2017-11-13] MEDS: Docusate CAP* 100 MG PO SCH ×2 (08:20→20:35)
[2017-11-13] MEDS: Lidocaine PATCH 5%* 1 PATCH TRANSDERM SCH (08:20)
[2017-11-13] MEDS: Mirabegron (NF) 50 MG TAB PO SCH (08:23)
[2017-11-13] MEDS: Coenzyme Q10 (NF) ** ENTER STREGNTH IN LABEL DIRECTIONS PO SCH (08:23)
[2017-11-13] MEDS ORDERED: predniSONE TAB* 10 MG PO SCH (09:00)
[2017-11-13 11:14] LABS: INR 3.46 (0.77-1.02)
--- NOTE | 2017-11-13 14:52 | PN ---
Subjective Date of Service: 11/13/17 Interval History: Pt seen and examined. Meds and labs reviewed. No O/N issues ROS: Improved pain on ambulation, however, still requires assistance. Denied AMEZCUA/dizziness, F/C, N/V, CP, SOB, increased cough, sputum production, abd pain, diarrhea, constipation, dysuria, throat pain, and new skin lesions. The rest of the 14 point ROS are unremarkable. PHYSICAL EXAM: GEN APPEARANCE: Awake, not in acute distress, pt sometimes stutters due to previous CVA HEENT: NC/AT, PERRLA, moist oral mucosa, (-) throat erythema NECK: Soft, supple, (-) cervical LAD, (-)JVD HEART: S1S2 WNL, RRR, No MRG CHEST: CTA, BL, GAE, No W/R/R ABD: Soft, ND/NT, NABS 4x Q EXT: No C/C/E SKIN: Warm to touch PSYCH: No active psychosis, hallucinations, depression, SI/HI NEURO: Right sided weakness from previous CVA Objective Active Medications: Acetaminophen (Tylenol Tab*) 650 mg PO Q4H PRN PRN Reason: FEVER/PAIN Al Hydrox/Mg Hydrox/Simethicone (Maalox Plus*) 30 ml PO Q6H PRN PRN Reason: INDIGESTION Albuterol (Ventolin 2.5 Mg/3 Ml Neb.Sammie*) 2.5 mg INH [id number] AWAKE PRN PRN Reason: sob/wheezing Cholecalciferol (Vitamin D Tab*) 5,000 units PO DAILY [facility] Last Admin: 11/13/17 08:19 Dose: 5,000 units Coenzyme Q10 (Coenzyme Q10 (Nf)) 0 cap PO DAILY [facility] Last Admin: 11/13/17 08:23 Dose: Not Given Cyclobenzaprine HCl (Flexeril Tab*) 10 mg PO TID PRN PRN Reason: SPASMS - BACK Docusate Sodium (Colace Cap*) 100 mg PO BID [facility] Last Admin: 11/13/17 08:20 Dose: 100 mg Furosemide (Lasix Tab*) 20 mg PO EVERY OTHER DAY [facility] Last Admin: 11/12/17 08:19 Dose: 20 mg Gabapentin (Neurontin Cap(*)) 200 mg PO TID [facility] Last Admin: 11/13/17 13:56 Dose: 200 mg Ketorolac Tromethamine (Toradol Inj*) 15 mg IV PUSH Q6H PRN PRN Reason: PAIN Lidocaine (Lidoderm 5% Patch*) 1 patch TRANSDERM DAILY [facility] Last Admin: 11/13/17 08:20 Dose: 1 patch Magnesium Hydroxide (Milk Of Magnesia Liq*) 30 ml PO Q4H PRN PRN Reason: CONSTIPATION Mirabegron (Myrbetriq (Nf)) 50 mg PO DAILY [facility] Last Admin: 11/13/17 08:23 Dose: Not Given Morphine Sulfate (Morphine Vial*) 2 mg IV Q1H PRN PRN Reason: PAIN Ondansetron HCl (Zofran Inj*) 4 mg IV Q4H PRN PRN Reason: NAUSEA/VOMITING Oxycodone HCl (Oxycontin(*)) 10 mg PO Q12HR [facility] Last Admin: 11/13/17 08:19 Dose: 10 mg Oxycodone/Acetaminophen (Percocet 5/325 Tab*) 2 tab PO Q6H PRN PRN Reason: Pain Last Admin: 11/11/17 09:18 Dose: 2 tab Pharmacy Profile Note (Lidocaine Patch Remove*) 1 note N/A 2100 [facility] Last Admin: 11/12/17 20:49 Dose: 1 note Pharmacy Profile Note (Coumadin Daily Reminder*) 1 note FOLLOW UP 1700 [facility] Prednisone (Deltasone Tab*) 20 mg PO DAILY [facility] Rosuvastatin Calcium (Crestor (Nf)) 40 mg PO DAILY [facility] Last Admin: 11/13/17 08:20 Dose: 40 mg Spironolactone (Aldactone Tab*) 12.5 mg PO EVERY OTHER DAY [facility] Last Admin: 11/12/17 08:19 Dose: 12.5 mg Venlafaxine HCl (Effexor Xr Cap*) 75 mg PO DAILY [facility] Last Admin: 11/13/17 08:20 Dose: 75 mg Warfarin Sodium (Coumadin Tab(*)) 5 mg PO 1700 [facility]; Protocol Vital Signs - 8 hr 11/13/17 11/13/17 11/13/17 07:39 08:19 10:58 Temperature 97.6 F Pulse Rate 65 Respiratory 22 16 18 Rate Blood Pressure 120/70 (mmHg) O2 Sat by Pulse 99 Oximetry 11/13/17 11/13/17 11/13/17 11:01 11:49 13:56 Temperature 97.9 F Pulse Rate 72 Respiratory 16 20 18 Rate Blood Pressure 133/71 (mmHg) O2 Sat by Pulse 96 Oximetry Oxygen Devices in Use Now: Nasal Cannula Result Diagrams: 11/12/17 08:05 11/12/17 08:05 Assess/Plan/Problems-Billing Assessment: - Patient Problems (1) Spinal stenosis at L4-L5 level Current Visit: Yes Status: Acute Code(s): M48.061 - SPINAL STENOSIS, LUMBAR REGION WITHOUT NEUROGENIC CLAUDIA SNOMED Code(s): 02017729 Comment: -Continue OxyContin to 10 mg PO BID -Increase Gabapentin to 300 mg PO TID -Continue Lidocaine patch as ordered -Continue to rapid prednisone taper---taper 10mg per day to off -W/multiple degenerative spondylosis -Appreciate both Neurology and Neurosurgery input -Discussed case with Kelly of Neurosurgery; given pt and unsure of CT myelography given multiple comorbidities and patient currently on Coumadin. Unfortunately, pt unable to go for MRI given his ICD. Will defer with pts PCP to further decide and discuss with pt and family whether this would be a viable option. Kelly mentions this can be appropriately done in the outpatient and hence will defer further discussions with PCP and pt/pts family. (2) Supratherapeutic INR Current Visit: Yes Status: Acute Code(s): R79.1 - ABNORMAL COAGULATION PROFILE SNOMED Code(s): 354110119 Comment: -Holding orders for Coumadin placed yesterday -Continue to hold Coumadin and continue watchful waiting (3) Hypertension Current Visit: Yes Status: Acute Code(s): I10 - ESSENTIAL (PRIMARY) HYPERTENSION SNOMED Code(s): 35763233 Comment: -Continue Lasix and Spirinolactone (4) Hyperlipidemia Current Visit: Yes Status: Acute Code(s): E78.5 - HYPERLIPIDEMIA, UNSPECIFIED SNOMED Code(s): 28658931 Comment: -Continue Rosuvastatin (5) DVT prophylaxis Current Visit: Yes Status: Acute Code(s): NTH3553 - SNOMED Code(s): 472238435 Comment: -Pt on Warfarin due to previous history of CVA---unclear if embolic in nature but does have history of HIT Status and Disposition: -Awaiting PT re-eval to see if pt will have enough resources and support if D/C d home vs. [facility]
[2017-11-13] MEDS: Gabapentin CAP(*) 300 MG PO SCH (20:34)
[2017-11-13] MEDS: Lidocaine Patch REMOVE* 1 NOTE MISC SCH (20:35)
[2017-11-14 06:59] LABS: Hematocrit 45 % (42-52); Mean Corpuscular HGB Conc 33 g/dl (31-36); Mean Corpuscular Hemoglobin 30 pg (27-31); Mean Corpuscular Volume 90 fL (80-94); Mean Platelet Volume 10.3 um3 (7.4-10.4); Platelet Count 208 10^3/ul (150-450); Red Blood Count 5.02 10^6/ul (4.00-5.40); Red Cell Distribution Width 14 % (10.5-15); White Blood Count 11.4 10^3/ul (3.5-10.8)
[2017-11-14 07:27] VITALS: BP 143/83
[2017-11-14] MEDS: Coenzyme Q10 (NF) ** ENTER STREGNTH IN LABEL DIRECTIONS PO SCH (07:32)
[2017-11-14] MEDS: Mirabegron (NF) 50 MG TAB PO SCH (07:32)
[2017-11-14] MEDS: Lidocaine PATCH 5%* 1 PATCH TRANSDERM SCH (07:33)
[2017-11-14] MEDS: Docusate CAP* 100 MG PO SCH (07:34)
[2017-11-14] MEDS: Gabapentin CAP(*) 300 MG PO SCH ×2 (07:34→13:53)
[2017-11-14] MEDS: Cholecalciferol TAB* 1000 UNITS PO SCH (07:34)
[2017-11-14] MEDS: Furosemide TAB* 20 MG PO SCH (07:34)
[2017-11-14] MEDS: Spironolactone TAB* 25 MG PO SCH (07:35)
[2017-11-14] MEDS: CMCS Rosuvastatin (NF) 20 MG TAB PO SCH (07:35)
[2017-11-14] MEDS: Venlafaxine EXT RELEASE CAP* 75 MG PO SCH (07:35)
[2017-11-14] MEDS: oxyCODONE SR TAB(*) 10 MG TAB.SR PO SCH (07:35)
[2017-11-14 07:50] LABS: EGFR Non-African American 73.9 (>60)
[2017-11-14] MEDS ORDERED: predniSONE TAB* 20 MG PO SCH (09:00)
[2017-11-14 09:15] LABS: INR 1.84 (0.77-1.02)
[2017-11-14] MEDS ORDERED: Senna TAB PO PRN (09:39)
[2017-11-14] MEDS ORDERED: Docusate CAP* 100 MG PO SCH (21:00)
--- NOTE | 2017-11-14 23:34 | DS ---
AMENDED REPORT NOW INCLUDES COSIGNER DESIGNATION - ESIGNED BEFORE ADJUSTMENT CC: Dr. Vania Ramirez; Dr. Manuel Garcia * DISCHARGE SUMMARY: DATE OF ADMISSION: 11/10/17 DATE OF DISCHARGE: 11/14/17 PRIMARY CARE PROVIDER: Dr. Vania Ramirez. MY ATTENDING WHILE IN THE HOSPITAL: Dr. Eva Wies.* (DICTATED BY LANDON ROY) CONSULTING NEUROSURGEON: Dr. Manuel Garcia. PRIMARY DISCHARGE DIAGNOSIS: Low back pain. SECONDARY DISCHARGE DIAGNOSES: 1. History of cerebrovascular accident. 2. History of myocardial infarction. 3. Coronary artery disease. 4. Anxiety. 5. Depression. 6. Hypertension. 7. Hyperlipidemia. STUDIES DONE WHILE IN THE HOSPITAL: Abdomen and pelvis CT from 11/10/17 read as no definite obstructive uropathy is noted. A lumbar spine CT from 11/10/17 read as negative for fracture, multilevel degenerative spondylosis, and facet joint osteoarthritis resulting in acquired spinal stenosis at L4-L5 and L5-S1 as described. Electrocardiogram from 11/14/17 shows left bundle-branch block, PVCs, left atrial enlargement, borderline right axis deviation. No other blocks or hypertrophy. Left T-wave inversions in V1 through V6 as well as I and aVL, possible left ventricular hypertrophy. No abnormalities since . Left bundle-branch block has progressed. T-wave inversions in V1 through V6 are new likely related to bundle-branch block. MEDICATIONS AT DISCHARGE: 1. CoQ10 100 mg p.o. daily. 2. Spironolactone 12.5 mg every other day. 3. Vitamin D 5000 units p.o. daily. 4. Venlafaxine 75 mg p.o. daily. 5. Myrbetriq 50 mg p.o. daily. 6. Furosemide 20 mg p.o. every other day. 7. Warfarin 5 mg p.o. daily. 8. Rosuvastatin 40 mg p.o. daily. 9. Garlic 5000 mg p.o. daily. 10. Tylenol 650 mg p.o. q.4 hours as needed. 11. Cyclobenzaprine 10 mg p.o. t.i.d. as needed. 12. Docusate 20 mg p.o. b.i.d. 13. Gabapentin 300 mg p.o. t.i.d. 14. Lactobacillus 1 tab p.o. daily. 15. Lidocaine patch 1 patch transdermal daily. 16. Magnesium hydroxide 30 mg p.o. q.4 hours as needed. 17. OxyContin 10 mg p.o. q.12 hours. 18. Percocet 1 tab p.o. q.6 hours as needed. 19. Prednisone 20 mg p.o. daily. 20. Senna 1 tab p.o. daily. New medications at discharge: 1. Tylenol. 2. Flexeril. 3. Docusate. 4. Gabapentin. 5. Lactobacillus. 6. Lidocaine patch. 7. Magnesium hydroxide. 8. Oxycodone. 9. Percocet. 10. Prednisone. 11. Senna. Medications discontinued at discharge: None. HOSPITAL COURSE: This is a brief summary of patient's presentation. For more details, please see history and physical from Dr. Kermit Abreu on 11/10/17. In brief, the patient is 72-year-old male with a past medical history significant for the above, who presents to the emergency department with severe low back pain. The patient's pain prevented him from standing up on the day of discharge. He had no focal neurological deficits and CT scan as above. He was admitted to the hospital for intractable pain. The patient had no other symptoms including signs of cauda equina syndrome. The patient was seen in consultation by Dr. April Kaur of Neurology who recommended neurosurgical evaluation and followup for nerve conduction studies as indicated. The patient continued to improve with regards to his ambulation. He was seen in consultation by Physical Therapy, who recommended exercise for pain control as well as increasing endurance. The patient was started on OxyContin and gabapentin. The patient was having what was described a quick prednisone taper while in the hospital. The patient had an elevated white blood cell count after this was started. The patient's INR was supratherapeutic. The patient had no other laboratory abnormalities. The patient was seen in consultation by LANDON Pérez of Neurosurgery, who found no signs of radiculopathy. Straight leg raise was negative. Recommended CT myelogram, which the patient and the family would like to have discussed. The patient, however, continued to improve greatly over the next 2 days and on the day of discharge was able to ambulate around the unit twice with standby assist with his walker. The patient was stable and amenable for discharge home on 11/14/17 for outpatient followup with primary care provider and Dr. Garcia. PHYSICAL EXAM ON DAY OF DISCHARGE: General: The patient is a 72-year-old male , who appears stated age and sitting comfortably in bed, in no acute distress. Vital Signs: At the time of evaluation, temperature 97.8, pulse rate 62, respiratory rate 16, oxygen saturation 98% on room air, blood pressure 143/83. HEENT: Head normocephalic, atraumatic. Sclerae anicteric. No conjunctival injection. Nasal mucosa moist, oral mucosa moist. No pharyngeal erythema, discharge or exudate. Neck: Supple and nontender. No lymphadenopathy. No carotid bruit auscultated. No JVD. Cardiac: Regular rate and rhythm. No clicks, murmurs, gallops or rubs. Pulses 2+ in bilateral dorsalis pedis, posterior tibial, and radial areas. No lower extremity calf tenderness or edema noted. Respiratory: Clear to auscultation bilaterally. No wheezes, rales or rhonchi. Good air exchange bilaterally. Abdomen: Soft, nontender, nondistended. Bowel sounds present, normoactive in all 4 quadrants. No hepatosplenomegaly. No abdominal bruits auscultated. No hepatojugular reflux. Genitourinary: No suprapubic or CVA tenderness. Skin: Clean, dry, and intact, no rashes. Neuro: Cranial nerves II through XII intact. Reflexes are 2+ in the bilateral biceps and patellar areas. Reflexes are 1+ in bilateral Achilles areas. Normal gait. Cerebellar testing performed without difficulty. Sensation to light touch intact in the bilateral upper and lower extremities distally and proximally. Psychiatric: Pleasant and cooperative. LABORATORY DATA ON THE DAY OF DISCHARGE: White blood cell count 11.4, hemoglobin 15.0, INR 1.84. Sodium 137, potassium 4.3, chloride 101, carbon dioxide 32, anion gap 4, BUN 21, creatinine 0.99, glucose 103, calcium 8.8. DISCHARGE PLAN: The patient will be discharged to home. The patient will follow up with outpatient physical therapy, which has been ordered for him and he has been provided with a number of which to follow up with them. The patient should follow up with his primary care doctor within 1 week for general medical comanagement and to assess for improvement in his functional status. The patient should have his INR as followed as above. The patient was subtherapeutic on the day of discharge. I will resume the patient's home dose of warfarin at 5 mg daily. It was discussed with the patient that his warfarin would have to be reversed before myelogram was performed and that this carried risk of recurrent stroke with it given the patient was improving greatly and was stable for discharge to home and neurosurgical intervention was not likely to be done in the short-term, but it was discussed the patient should follow up outpatient with Neurosurgery after a trial of physical therapy and pain control. If he fails to continue to improve with these interventions, then the CT myelogram could be done and his candidacy for neurosurgery could be reassessed at that time. The patient should have a heart- healthy diet without caffeine. The patient could engage activity as tolerated with PT and OT as above. The patient's pain medications are outlined above. It was discussed with the patient that he should, as tolerated, wean particularly his opiate use and the patient's stated agreement. TIME SPENT: Approximately 60 minutes were spent on this discharge, 30 of which were spent [id number] with the patient obtaining history and physical and discuss treatment plan. LANDON ROY [id number]/[facility] #: [id number] VALDEZ
[2017-11-15] MEDS ORDERED: Lactobacillus Acidophilus* 1 TAB PO SCH (09:00)
== END 2017-11-14 16:05 | disposition home or self-care (01) | DRG 552 ==
LOC: ED 12:41 → MED 17:20 → OBSVTOIN 11-11 11:51
PROVIDERS: ADMIT Internal Medicine; ATTEND Internal Medicine
DX: M48.061 Spinal stenosis, lumbar region without neurogenic claudication (principal); I47.2 Ventricular tachycardia; G89.29 Other chronic pain; R32 Unspecified urinary incontinence; I25.10 Atherosclerotic heart disease of native coronary artery without angina pectoris; E78.5 Hyperlipidemia, unspecified; F41.9 Anxiety disorder, unspecified; F32.9 Major depressive disorder, single episode, unspecified; M43.06 Spondylolysis, lumbar region; I50.9 Heart failure, unspecified; I11.0 Hypertensive heart disease with heart failure; M25.78 Osteophyte, vertebrae; M47.816 Spondylosis without myelopathy or radiculopathy, lumbar region; R79.1 Abnormal coagulation profile; I44.7 Left bundle-branch block, unspecified; Z88.8 Allergy status to other drugs, medicaments and biological substances; Z91.041 Radiographic dye allergy status; Z82.49 Family history of ischemic heart disease and other diseases of the circulatory system; I25.2 Old myocardial infarction; Z95.810 Presence of automatic (implantable) cardiac defibrillator; I69.351 Hemiplegia and hemiparesis following cerebral infarction affecting right dominant side; Z79.01 Long term (current) use of anticoagulants; Z79.52 Long term (current) use of systemic steroids; I69.320 Aphasia following cerebral infarction
CPT/HCPCS: 36415; 72131; 74176; 80048; 80053; 81003; 83690; 83735; 84100; 85025; 85027; 85610; 85730; 93005; 99284; A9270-GY; G0378; G8978-GP-CK; G8979-GP-CI; G8981-GP-CK; G8982-GP-CH; G8987-GO-CI; G8988-GO-CI; G8989-GO-CI; J2360; J7512

== ENCOUNTER 2018-03-07 11:28 | Observation (INO) | payer MEDICARE, OTHER ==
[2018-03-07] MEDS ORDERED: NS 0.9% 1000 ML* 1,000 ML IV ONE (11:50)
[2018-03-07] MEDS ORDERED: Tetracaine 0.5% OPTH.SOL 15ML* BTL ONE (12:02)
--- NOTE | 2018-03-07 12:02 | ED ---
Neurological HPI - HPI Summary HPI Summary: Patient is a 72 y/o M w/ c/o left sided facial droop and AMEZCUA pain just above his left eye, left eye pain, as well as left eyelid droop onsetting sometime in the past week. Slurred speech, dizziness and lack of balance is also reported to be present per . Patient has PMHx of stroke with right sided deficits. He was being seen by his assistant community director today for nuclear stress test, was sent into ED by assistant community director. He is on a blood thinner, denies recent falls/head injuries. He denies rashes, states that it does not feel like there is a foreign body in his left eye. Blurry vision is endorsed. On triage, nothing is noted to aggravate/alleviate Sx. Home medications and allergies are reviewed. - History of Current Complaint Chief Complaint: EDWeakness Stated Complaint: FACIAL DROOP Time Seen by Provider: 03/07/18 11:35 Hx Obtained From: Patient Onset/Duration: Started weeks ago - last week, Still Present Timing: Constant Current Severity: Mild Neurological Deficit Location: Facial - left Character: Dizzy, Impaired Speech, Visual Changes - blurry vision, Other: - lack of balance, facial droop Aggravating: Nothing Alleviating: Nothing Associated Signs and Symptoms: Positive: Visual Changes - blurred vision, Headache, Dizziness, Impaired Speech. Negative: Trauma: Recent - Additional Pertinent History Primary Care Physician: DEENA - Allergy/Home Medications Allergies/Adverse Reactions: Allergies Allergy/AdvReac Type Severity Reaction Status Date / Time heparin Allergy Hives Verified 11/10/17 15:01 iodine Allergy Hives Verified 11/10/17 15:01 Home Medications: Home Medications Cholecalciferol CAP/TAB(NF) [Vitamin D3 CAP/TAB (NF)] 5,000 unit PO DAILY [History Confirmed 03/07/18] Furosemide TAB* [Lasix TAB*] 20 mg PO EVERY OTHER DAY 03/07/18 [History Confirmed 03/07/18] Garlic 5,000 mg PO DAILY 03/07/18 [History Confirmed 03/07/18] Ivabradine (NF) [Corlanor (Nf)] 5 mg PO BID 03/07/18 [History Confirmed 03/07/18 ] Mirabegron (NF) [Myrbetriq (NF)] 50 mg PO DAILY 03/07/18 [History Confirmed ] Rosuvastatin (NF) [Crestor (NF)] 40 mg PO DAILY 03/07/18 [History Confirmed ] Spironolactone TAB* [Aldactone TAB*] 12.5 mg PO EVERY OTHER DAY 03/07/18 [ History Confirmed 03/07/18] Ubidecarenone [Co Q-10] 100 mg PO DAILY 03/07/18 [History Confirmed 03/07/18] PMH/Surg Hx/FS Hx/Imm Hx Cardiovascular History: Reports: Hx Auto Implanted Cardiovert Defib, Hx Coronary Artery Disease, Hx Hypertension, Hx Pacemaker/ICD Respiratory History: Denies: Hx Asthma History: Reports: Hx Benign Prostatic Hyperplasia Musculoskeletal History: Reports: Hx Back Problems - old L45 lami. Sensory History: Reports: Hx Contacts or Glasses - reading glasses Denies: Hx Hearing Aid Opthamlomology History: Reports: Hx Contacts or Glasses - reading glasses - Surgical History Surgery Procedure, Year, and Place: Hx of back surgery, cardiac cath, appendectomy Hx Anesthesia Reactions: No Infectious Disease History: No Infectious Disease History: Denies: Traveled Outside the [place] in Last 30 Days - Family History Known Family History: Positive: Cardiac Disease - CAD, [place] - Social History Alcohol Use: None Hx Substance Use: No Substance Use Type: Reports: None Hx Tobacco Use: No Smoking Status (MU): Never Smoked Tobacco Review of Systems Negative: Fever, Chills Positive: Blurred Vision, Other - left eye pain . Negative: Erythema Negative: Sore Throat Negative: Chest Pain Negative: Shortness Of Breath, Cough Negative: Abdominal Pain, Vomiting, Nausea Negative: dysuria, hematuria Negative: Myalgia, Edema Negative: Rash Neurological: Other - POSITIVE: left facial droop, dizziness, lack of balance NEGATIVE: recent falls/head injuries Positive: Headache, Slurred Speech All Other Systems Reviewed And Are Negative: Yes Physical Exam - Summary Physical Exam Summary: Constitutional: Well-developed, Well-nourished, Alert. (-) Distressed Skin: Warm, Dry HENT: Normocephalic; Atraumatic Eyes: Left sided conjunctival injection; left sided intra-ocular pressure of left is 28, 23, 24 Neck: Musculoskeletal ROM normal neck. (-) JVD, (-) Stridor, (-) Tracheal deviation Cardio: Rhythm regular, rate normal, Heart sounds normal; Intact distal pulses; The pedal pulses are 2+ and symmetric. Radial pulses are 2+ and symmetric. (-) Murmur Pulmonary/Chest wall: Effort normal. (-) Respiratory distress, (-) Wheezes, (-) Rales Abd: Soft. (-) Tenderness, (-) Distension, (-) Guarding, (-) Rebound Musculoskeletal: (-) Edema Lymph: (-) Cervical adenopathy Neuro: Alert, Oriented x3, Strength normal, Cranial nerves II-XII are grossly intact. (-) Nystagmus, (+) bilateral dysmetria by finger to nose testing, (-) Sensory deficit. NIH 2, GCS 15 Psych: Mood and affect Normal Triage Information Reviewed: Yes Vital Signs On Initial Exam: Initial Vitals Temp Pulse Resp BP Pulse Ox 97.5 F 68 18 140/73 97 03/07/18 11:33 03/07/18 11:33 03/07/18 11:33 03/07/18 11:33 03/07/18 11:33 Vital Signs Reviewed: Yes - Alfie Coma Scale Best Eye Response: 4 - Spontaneous Best Motor Response: 6 - Obeys Commands Best Verbal Response: 5 - Oriented Coma Scale Total: 15 Diagnostics - Vital Signs Vital Signs Temp Pulse Resp BP Pulse Ox 03/07/18 11:33 97.5 F 68 18 140/73 97 - Laboratory Result Diagrams: 03/07/18 11:50 03/07/18 11:50 Lab Statement: Any lab studies that have been ordered have been reviewed, and results considered in the medical decision making process. 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-Paretic Hand: Both Correctly Best Gaze (Only Horizontal Eye Movement): Normal Visual Field Testing: No Visual Loss Facial Paresis-Pt to Smile & Close Eyes or Grimace Symmetry: Normal/Symmetrical Motor Function - Right Arm: No Drift-Holds 10 Seconds Motor Function - Left Arm: No Drift-Holds 10 Seconds Motor Function - Right Leg: No Drift-Holds 10 Seconds Motor Function - Left Leg: No Drift-Holds 10 Seconds Limb Ataxia-Must be out of Proportion to Weakness Present: Present in Two Limbs Sensory (Use Pinprick to Test Arms/Legs/Trunk/Face): Normal Best Language (Describe Picture, Name Items): No Aphasia Dysarthria (Read Several Words): Normal Extinction and Inattention: No Abnormality Total Score: 2 Re-Evaluation - Re-Evaluation First Eval Re-Evaluation Time: 12:50 Comment: Updated patient on tests, labs, and consults. Disucssed admission with patient. He is agreeable with this. Course/Dx - Course Course Of Treatment: Patient is a 72 y/o M w/ c/o left sided facial droop and AMEZCUA pain just above his left eye, left eye pain as well as left eyelid droop onsetting sometime in the past week. Slurred speech, dizziness and lack of balance is also reported to be present per . Patient has PMHx of stroke with right sided deficits. He was being seen by his assistant community director today for nuclear stress test, was sent into ED by assistant community director. He is on a blood thinner , denies recent falls/head injuries. He denies rashes, states that it does not feel like there is a foreign body in his left eye. Blurry vision is endorsed. Physical exam showed Left sided conjunctival injection; left sided intra-ocular pressure of left is 28, 23, 24. On neuro exam, patient is Alert, Oriented x3, Strength normal, Cranial nerves II-XII are grossly intact. (-) Nystagmus, (+) bilateral dysmetria by finger to nose testing, (-) Sensory deficit. NIH 2, GCS 15. During ED course, patient received tetracaine and fluids. Labs showed ESR 11, WBC 9.9, glucose 122, lactic acid 1.3, trop 0.01, CRP 2.52, triglycerides 118, cholesterol 145, LDL cholesterol 67, HDL cholesterol 54.9. 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 CXR showed no active cardiopulmonary disease. EKG showed sinus rhythm with rate of 61 BPM. 1200 - Patient's opthamologist, Dr. Gonzalez , was attempted to be contacted. As he is in surgery right now, office will call back later. 1248 - Dr. Francois, Dr. Gonzalez's associate, called back. He notes that patient's eye pressures are usually in the low 20s, no indication for emergency treatment at this time, they will arrange follow up for the patient. 1301 - Patient's case was discussed with Dr. Whitehead. Dr. Whitehead accepts patient for admission. 1314 - Dr. Damico was consulted on patient's case. He will come to ED to evaluate patient. Dx of left eye pain, TIA. - Diagnoses Provider Diagnoses: Left eye pain, TIA (transient ischemic attack) - Physician Notifications Discussed Care Of Patient With: Rudolph Francois Time Discussed With Above Provider: 12:48 Instructed by Provider To: Other - 1200 - Patient's opthamologist, Dr. Gonzalez , was attempted to be contacted. As he is in surgery right now, office will call back later. 1248 - Dr. Francois, Dr. Gonzalez's associate, called back. He notes that patient's eye pressures are usually in the low 20s, no indication for emergency treatment at this time, they will arrange follow up for the patient. 1301 - Patient's case was discussed with Dr. Whitehead. Dr. Whitehead accepts patient for admission. 1314 - Dr. Damico was consulted on patient's case. He will come to ED to evaluate patient. Discharge - Sign-Out/Discharge Documenting (check all that apply): Patient Departure - admit - Discharge Plan Condition: Good Disposition: ADMITTED TO [facility] Referrals: Vania Ramirez MD [Primary Care Provider] - - Attestation Statements Document Initiated by Scribe: Yes Documenting Scribe: Jh Dougherty Provider For Whom Evye is Documenting (Include Credential): Michael De La Rosa MD Scribe Attestation: Jh Lutz , scribed for Michael De La Rosa MD on 03/07/18 at 1528.
[2018-03-07 12:05] LABS: ABS Basophils 0 10^3/ul (0-0.2); ABS Eosinophils 0.3 10^3/ul (0-0.6); ABS Lymphocytes 2.2 10^3/ul (1.0-4.8); ABS Neutrophils 6.2 10^3/ul (1.5-7.7); ABS Nucleated RBC 0 10^3/ul; Eosinophil % 3.5 % (0-6); Hematocrit 48 % (42-52); Hemoglobin 16.2 g/dl (14.0-18.0); Lymphocyte % 22.4 % (25-47); Mean Corpuscular HGB Conc 34 g/dl (31-36); Mean Corpuscular Hemoglobin 30 pg (27-31); Mean Corpuscular Volume 91 fL (80-94); Mean Platelet Volume 10.7 um3 (7.4-10.4); Nucleated Red Blood Cells % 0.2; Platelet Count 216 10^3/ul (150-450); Red Blood Count 5.33 10^6/ul (4.00-5.40); Red Cell Distribution Width 14 % (10.5-15); White Blood Count 9.9 10^3/ul (3.5-10.8)
[2018-03-07] MEDS ORDERED: Tetracaine 0.5% OPTH.SOL 4 ML* 1 DROP BTL ONE (12:06)
--- OUTSIDE RECORDS SUMMARY | 2018-03-07 12:08 | XMS REPORT ---
:1945 External Reference #:[id number] Author Organization [facility] Address [address] [place] [address] Phone [phone] Care Team Providers Name Role Phone Vania Ramirez MD Primary Care Physician Unavailable Payers Type Date Identification Numbers Payment Provider Subscriber Medicare Primary Effective: Policy Number: Medicare Eduardo Adam 2008 [id number] PayID: [id number] [address] [place] [address] [facility] Part B Effective: Policy Number: For Life Eduardo Adam 2012 [id number] PayID: [id number] [address] [place] [address] Problems Date Description Provider Status Onset: 11/03/2017 Carotid artery occlusion Hali Payne M.D. 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 Active Onset: 08/22/2015 Chronic ischemic heart disease Hali Payne M.D. Active Onset: 04/29/2015 Cardiomyopathy, unspecified Hali Payne M.D. Active Onset: 07/30/2014 Cerebral artery occlusion Hali Payne M.D. Active Onset: 07/30/2014 Essential hypertension Hali Payne M.D. Active Onset: 07/30/2014 Hyperlipidemia Hali Payne M.D. 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 Active Onset: 06/03/2014 Acute ill-defined cerebrovascular disease Hali Payne M.D. Active Onset: 06/03/2014 Coronary arteriosclerosis Hali Payne M.D. Active Social History Type Date Description Comments Marital Status Lives With Occupation Retired ETOH Use Denies alcohol use Smoking Patient is a former smoker smoked cigarettes/cigars in teens and 20's- quit smoking at 21 years of age Recreational Drug Use Never Used Drugs Daily Caffeine Consumes on average 1 cup of hot tea per day Daily Caffeine Regular coffee 1 a week Exercise Type/Frequency Exercises sporadically General Hx Text Allergies, Adverse Reactions, Alerts Date Description Reaction Status Severity Comments 08/22/2015 IV Contrast Dye active per pt 02/11/2017 Entresto active Severe 12/18/2013 NKDA inactive Medications Medication Date Status Form Strength Qnty SIG Indications Ordering Provider Corlanor 02/06 Active Tablets 5mg 60tab si tab I25.5 s by mouth [place], twice a day M.D. Furosemide 01/22 Active Tablets 20mg 45tab 1 by mouth M10.071 Hali s every other [place], day. M.D. Spironolactone Active Tablets 25mg 90tab 1/2 tab by Unknown /0000 s mouth every other day alternating w/ lasix Co Q 10 Active Capsules 100mg 90cap 1 by mouth Unknown /0000 s every day Warfarin Sodium Active 5mg as directed Unknown /0000 ( adjustment Dr. Ramirez) taking 5mg daily Colcrys Active Tablets 0.6mg 30tab 1 by mouth Unknown /0000 s every day prn Garlic Oil Active Tablets 5000mg 2 po qd Unknown /0000 Crestor Active Tablets 40mg 90tab 1 po daily Unknown /0000 s Nitrostat Active Tablets 0.4mg 25tab one sl Unknown /0000 Sub s q5min up to 3 doses as needed Myrbetriq Active Tablets 50mg 1 po qd Unknown /0000 ER 24HR Vitamin D3 High Active Capsules 5000Units 1 caps Unknown Potency /0000 daily Venlafaxine HCL ER 00/00 Active Caps ER 75mg 30cap 1 by mouth Jander, /0000 24HR s every day MD Vania Ramipril 02/11 Hx Capsules 1.25mg 90cap 1 tab by I25.5 s mouth every [place], - night M.D. 10/27 Entresto 09/09 Hx Tablets 24-26mg 180ta 1 tablet Hali bs tablet by [place], - mouth twice M.D. 02/10 a /2016 Carvedilol 06/03 Hx Tablets 3.125mg 60tab 1/2 by 425.9 Hali s mouth twice [place], - a day M.D. 06/01 Ramipril 03/08 Hx Capsules 2.5mg 90cap take 1 cap 425.9 Hali s by mouth [place], - daily M.D. 09/03 Ramipril Hx Capsules 1.25mg 30cap 2 by mouth Unknown /0000 s every day - 03/08 Venlafaxine HCL ER Hx Caps ER 37.5mg 1mont 2 po qd Unknown /0000 24HR h - 09/02 Hydrochlorothiazid Hx Tablets 12.5mg 30tab 1 by mouth Unknown e / s every other - day 01/22 w/ Spironlacto ne Medications Administered in Office Medication Date Status Form Strength Qnty SIG Indications Ordering Provider Technetium TC Administered Injection Ivonne Carpenter M.D. Per Unit Dose Up To 40 Millicuries Vital Signs Date Vital Result Comment 02/06/2018 Height 74.5 inches 6'2.50" Weight 232.00 lb without shoes Heart Rate 98 /min BP Systolic Sitting 110 mmHg lue reg cuff BP Diastolic Sitting 70 mmHg lue reg cuff BP Systolic Standing 110 mmHg lue reg cuff BP Diastolic Standing 70 mmHg lue reg cuff BMI (Body Mass Index) 29.4 kg/m2 Ejection Fraction 25-30 11/03/17 11/03/2017 Height 74.5 inches 6'2.50" Weight 232.00 lb w/o shoes Heart Rate 80 /min BP Systolic Sitting 118 mmHg lue lg cuff BP Diastolic Sitting 72 mmHg lue lg cuff BP Systolic Standing 110 mmHg lue lg cuff BP Diastolic Standing 62 mmHg lue lg cuff Respiratory Rate 18 /min BMI (Body Mass Index) 29.4 kg/m2 Ejection Fraction 20-25% echo 02/10/16 09/12/2017 Height 74.5 inches 6'2.50" Weight 231.81 lb Heart Rate 80 /min BP Systolic Sitting 120 mmHg BP Diastolic Sitting 60 mmHg BP Systolic Standing 118 mmHg BP Diastolic Standing 60 mmHg Respiratory Rate 18 /min BMI (Body Mass Index) 29.4 kg/m2 Ejection Fraction 20-25% 02/10/2016 echo 03/11/2017 Height 74.5 inches 6'2.50" Weight 227.00 lb Heart Rate 92 /min BP Systolic Sitting 122 mmHg LA, reg BP Diastolic Sitting 64 mmHg LA, reg BMI (Body Mass Index) 28.8 kg/m2 Ejection Fraction 20%-25% 02/10/16 echo 02/11/2017 Height 74.5 inches 6'2.50" Weight 227.25 lb with shoes Heart Rate 70 /min BP Systolic Sitting 118 mmHg lue reg cuff BP Diastolic Sitting 68 mmHg lue reg cuff Respiratory Rate 18 /min BMI (Body Mass Index) 28.8 kg/m2 Ejection Fraction 20%-25% echo 02/10/16 01/28/2017 Height 74.5 inches 6'2.50" Weight 224.00 lb without shoes Heart Rate 74 /min BP Systolic Sitting 120 mmHg Lue reg cuff BP Diastolic Sitting 76 mmHg Lue reg cuff BP Systolic Standing 116 mmHg Lue reg cuff BP Diastolic Standing 70 mmHg Lue reg cuff Respiratory Rate 17 /min BMI (Body Mass Index) 28.4 kg/m2 Ejection Fraction 20-25% date 02/10/16 ECHO 10/15/2016 Height 74.5 inches 6'2.50" Weight 210.00 lb No shoes Heart Rate 60 /min BP Systolic Sitting 120 mmHg Rue reg cuff BP Diastolic Sitting 72 mmHg Rue reg cuff BP Systolic Standing 118 mmHg Rue reg cuff BP Diastolic Standing 70 mmHg Rue reg cuff Respiratory Rate 18 /min BMI (Body Mass Index) 26.6 kg/m2 Ejection Fraction 20-25% 02/10/2016-echo 09/07/2016 Heart Rate 64 /min BP Systolic Sitting 138 mmHg Rue reg cuff BP Diastolic Sitting 74 mmHg Rue reg cuff BP Systolic Standing 126 mmHg Rue reg cuff BP Diastolic Standing 74 mmHg Rue reg cuff 09/03/2016 Height 74.75 inches 6'2.75" Weight 226.00 lb without shoes Heart Rate 74 /min BP Systolic Sitting 128 mmHg Lue reg cuff BP Diastolic Sitting 76 mmHg Lue reg cuff BP Systolic Standing 128 mmHg Lue reg cuff BP Diastolic Standing 88 mmHg Lue reg cuff O2 % BldC Oximetry 95 % at room air BMI (Body Mass Index) 28.4 kg/m2 Ejection Fraction 20-25% Echo 02/10/16 07/15/2016 Height 74.75 inches 6'2.75" Weight 231.00 lb without shoes Heart Rate 74 /min reg with ectopy BP Systolic Sitting 120 mmHg Rue reg cuff BP Diastolic Sitting 82 mmHg Rue reg cuff BP Systolic Standing 128 mmHg Rue reg cuff BP Diastolic Standing 80 mmHg Rue reg cuff Respiratory Rate 17 /min BMI (Body Mass Index) 29.1 kg/m2 Ejection Fraction 20-25% date 02/10/16 ECHO 02/27/2016 Height 74.75 inches 6'2.75" Weight 229.00 lb without shoes Heart Rate 92 /min BP Systolic Sitting 122 mmHg Ra reg cuff BP Diastolic Sitting 80 mmHg Ra reg cuff BP Systolic Standing 116 mmHg Ra reg cuf BP Diastolic Standing 84 mmHg Ra reg cuf Respiratory Rate 17 /min BMI (Body Mass Index) 28.8 kg/m2 Ejection Fraction 20-25% date 02/10/16 ECHO 01/23/2016 Height 74.75 inches 6'2.75" Weight 228.00 lb w/o shoes Heart Rate 76 /min BP Systolic Sitting 122 mmHg Rue, reg cuff BP Diastolic Sitting 84 mmHg Rue, reg cuff BP Systolic Standing 124 mmHg Rue BP Diastolic Standing 80 mmHg Rue Respiratory Rate 16 /min BMI (Body Mass Index) 28.7 kg/m2 Ejection Fraction 20-25% as of 05/26/14 echo 08/22/2015 Height 74.75 inches 6'2.75" Weight 226.00 lb Heart Rate 88 /min BP Systolic Sitting 112 mmHg Ra reg cuff BP Diastolic Sitting 80 mmHg Ra reg cuff BP Systolic Standing 110 mmHg Ra BP Diastolic Standing 80 mmHg Ra Respiratory Rate 16 /min BMI (Body Mass Index) 28.4 kg/m2 Ejection Fraction 20-25% 05/26/14 07/30/2014 Height 74.75 inches 6'2.75" Weight 218.00 lb w/o shoes Heart Rate 88 /min irreg BP Systolic Sitting 120 mmHg Ra, reg cuff BP Diastolic Sitting 72 mmHg Ra, reg cuff BP Systolic Standing 118 mmHg Ra BP Diastolic Standing 74 mmHg Ra Respiratory Rate 18 /min BMI (Body Mass Index) 27.4 kg/m2 06/03/2014 Height 74.75 inches 6'2.75" Weight 219.00 lb with out shoes Heart Rate 70 /min BP Systolic Sitting 120 mmHg Ra reg cuff BP Diastolic Sitting 78 mmHg Ra reg cuff BP Systolic Standing 114 mmHg Ra reg cuff BP Diastolic Standing 72 mmHg Ra reg cuff Respiratory Rate 16 /min BMI (Body Mass Index) 27.6 kg/m2 03/08/2014 Height 74.75 inches 6'2.75" Weight 221.00 lb w/o shoes Heart Rate 80 /min BP Systolic Sitting 108 mmHg BP Diastolic Sitting 64 mmHg Respiratory Rate 14 /min BMI (Body Mass Index) 27.8 kg/m2 12/18/2013 Height 74.75 inches 6'2.75" Weight 220.00 lb Heart Rate 68 /min BP Systolic Sitting 124 mmHg LA reg cuff BP Diastolic Sitting 88 mmHg LA reg cuff BP Systolic Standing 114 mmHg LA BP Diastolic Standing 82 mmHg LA Respiratory Rate 18 /min BMI (Body Mass Index) 27.7 kg/m2 Results Test Date Test Result H/L Range Note Basic Metabolic Panel 10/28/2017 Sodium 140 mmol/L 135-145 Potassium 4.4 mmol/L 3.5-5.0 Chloride 102 mmol/L 101-111 Co2 Carbon Dioxide 28 mmol/L 22-32 Anion Gap 10 mmol/L 2-11 Glucose 108 mg/dL High 70-100 Blood Urea Nitrogen 22 mg/dL 6-24 Creatinine 1.15 mg/dL 0.67-1.17 BUN/Creatinine Ratio 19.1 8-20 Calcium 9.8 mg/dL 8.6-10.3 Egfr Non- 62.2 >60 Egfr 79.9 >60 1 Laboratory test finding 10/28/2017 Creatine Kinase(CK) 82 U/L 10-223 C Reactive Protein 2.10 mg/L < 5.00 2 Vitamin D Total 25(Oh) 39.4 ng/mL 20-50 Basic Metabolic Panel 05/20/2016 Sodium 137 mmol/L 133-145 3 Potassium 4.5 mmol/L 3.5-5.0 3 Chloride 106 mmol/L 101-111 3 Co2 Carbon Dioxide 28 mmol/L 22-32 3 Anion Gap 3 mmol/L 2-11 3 Glucose 110 mg/dL High 70-100 3 Blood Urea Nitrogen 19 mg/dL 6-24 3 Creatinine 1.22 mg/dL High 0.67-1.17 3 BUN/Creatinine Ratio 15.6 8-20 3 Calcium 9.9 mg/dL 8.6-10.3 3 Egfr Non- 58.4 >60 3 Egfr 75.1 >60 3, 4 Laboratory test finding 05/20/2016 TSH (Thyroid Stim 1.25 mcIU/mL 0.34- 5.60 3, 5 Horm) Hemoglobin A1c (Glyco HGB) 6.2 % High Less than 6.0 3, 6 Laboratory test finding 01/24/2016 B-Type Natriuretic Peptide 92 pg/mL 7 BNP Vitamin D 1,25 And 01/24/2016 Vitamin D Total 25(Oh) 23.5 ng/mL Low 30-50 Vitamin D,2 Vitamin D, 1,25 Dihydroxy 76 pg/mL (HIGH <SEE NOTE> 8 Laboratory test finding 01/24/2016 Creatine Kinase(CK) 98 U/L 10-223 Erythrocyte Sed Rate 10 mm/Hr 0-40 Comp Metabolic Panel 01/13/2016 Sodium 136 mmol/L 133-145 9 Potassium 4.4 mmol/L 3.5-5.0 9 Chloride 102 mmol/L 101-111 9 Co2 Carbon Dioxide 27 mmol/L 22-32 9 Anion Gap 7 mmol/L 2-11 9 Glucose 106 mg/dL High 70-100 9 Blood Urea Nitrogen 19 mg/dL 6-24 9 Creatinine 1.12 mg/dL 0.67-1.17 9 BUN/Creatinine Ratio 17.0 8-20 9 Calcium 9.4 mg/dL 8.6-10.3 9 Total Protein 7.3 g/dL 6.4-8.9 9 Albumin 4.2 g/dL 3.2-5.2 9 Globulin 3.1 g/dL 2-4 9 Albumin/Globulin Ratio 1.4 1-3 9 Total Bilirubin 0.50 mg/dL 0.2-1.0 9 Alkaline Phosphatase 80 U/L 34-104 9 Alt 16 U/L 7-52 9 Ast 17 U/L 13-39 9 Egfr Non- 64.4 >60 9 Egfr 82.9 >60 9, 10 Lipid Profile (Trig/Chol/HDL) 01/13/2016 Triglycerides 84 mg/dL 9, 11 Cholesterol 156 mg/dL 9, 12 HDL Cholesterol 52.5 mg/dL 9, 13 LDL Cholesterol 87 mg/dL 9, 14 Laboratory test finding 01/13/2016 Uric Acid 8.5 mg/dL High 4.4-7.6 9, 15 Hemoglobin A1c (Glyco HGB) 6.3 % High Less than 6.0 9, 16 Basic Metabolic Panel 04/16/2015 Sodium 135 mmol/L 133-145 Potassium 4.5 mmol/L 3.5-5.0 Chloride 101 mmol/L 101-111 Co2 Carbon Dioxide 26 mmol/L 22-32 Anion Gap 8 mmol/L 2-11 Glucose 114 mg/dL High 70-100 Blood Urea Nitrogen 17 mg/dL 6-24 Creatinine 1.15 mg/dL 0.67-1.17 BUN/Creatinine Ratio 14.8 8-20 Calcium 9.7 mg/dL 8.6-10.3 Egfr Non- 62.7 >60 Egfr 80.6 >60 17 Lipid Profile (Trig/Chol/HDL) 04/16/2015 Triglycerides 149 mg/dL 18 Cholesterol 175 mg/dL 19 HDL Cholesterol 46.8 mg/dL 20 LDL Cholesterol 98 mg/dL 21 CBC Auto Diff 04/16/2015 White Blood Count 11.0 10^3/uL High 4.8-10.8 Red Blood Count 5.48 10^6/uL High 4.0-5.4 Hemoglobin 16.3 g/dL 14.0-18.0 Hematocrit 50 % 42-52 Mean Corpuscular Volume 92 fL 80-94 Mean Corpuscular Hemoglobin 30 pg 27-31 Mean Corpuscular HGB Conc 33 g/dL 31-36 Red Cell Distribution Width 14 % 10.5-15 Platelet Count 327 10^3/uL 150-450 Mean Platelet Volume 11 um3 High 7.4-10.4 Abs Neutrophils 6.8 10^3/uL 1.5-7.7 Abs Lymphocytes 2.4 10^3/uL 1.0-4.8 Abs Monocytes 1.3 10^3/uL High 0-0.8 Abs Eosinophils 0.4 10^3/uL 0-0.6 Abs Basophils 0.1 10^3/uL 0-0.2 Abs Nucleated RBC 0.03 10^3/uL Granulocyte % 61.8 % 38-83 Lymphocyte % 21.9 % Low 25-47 Monocyte % 11.5 % High 1-9 Eosinophil % 3.5 % 0-6 Basophil % 1.3 % 0-2 Nucleated Red Blood Cells % 0.3 Laboratory test finding 04/16/2015 Hemoglobin A1c (Glyco 6.3 % High Less than 6.0 22 HGB) Vitamin D Total 25(Oh) 19.3 ng/mL Low 30-50 Urinalysis Profile 05/25/2014 Urine Color Yellow Urine Appearance Cloudy Urine Specific [place] 1.021 1.010-1.030 Urine pH 5.0 5-9 Urine Urobilinogen Negative Negative Urine Ketones Negative Negative Urine Protein Negative Negative Urine Leukocytes Negative Negative Urine Blood Negative Negative Urine Nitrite Negative Negative Urine Bilirubin Negative Negative Urine Glucose Negative Negative CBC Auto Diff 05/25/2014 White Blood Count 9.5 10^3/uL 4.8-10.8 Red Blood Count 5.17 10^6/uL 4.0-5.4 Hemoglobin 15.6 g/dL 14.0-18.0 Hematocrit 47 % 42-52 Mean Corpuscular Volume 91 fL 80-94 Mean Corpuscular Hemoglobin 30 pg 27-31 Mean Corpuscular HGB Conc 33 g/dL 31-36 Red Cell Distribution Width 13 % 10.5-15 Platelet Count 192 10^3/uL 150-450 Mean Platelet Volume 11 um3 High 7.4-10.4 Abs Neutrophils 6.2 10^3/uL 1.5-7.7 Abs Lymphocytes 1.9 10^3/uL 1.0-4.8 Abs Monocytes 1.0 10^3/uL High 0-0.8 Abs Eosinophils 0.3 10^3/uL 0-0.6 Abs Basophils 0.1 10^3/uL 0-0.2 Abs Nucleated RBC 0.01 10^3/uL Granulocyte % 65.3 % 38-83 Lymphocyte % 19.9 % Low 25-47 Monocyte % 11.0 % High 1-9 Eosinophil % 3.2 % 0-6 Basophil % 0.6 % 0-2 Nucleated Red Blood Cells % 0.1 Inr/Protime 05/25/2014 Inr 1.37 High 0.85-1.06 Laboratory test finding 05/25/2014 Activated Partial 40.0 seconds High 24.0-36.1 Thrombo Time Comp Metabolic Panel 05/25/2014 Sodium 137 mmol/L 133-145 Potassium 3.9 mmol/L 3.5-5.0 Chloride 104 mmol/L 101-111 Co2 Carbon Dioxide 27 mmol/L 22-32 Anion Gap 6 mmol/L 2-11 Glucose 117 mg/dL High 70-100 Blood Urea Nitrogen 17 mg/dL 6-24 Creatinine 1.09 mg/dL 0.67-1.17 BUN/Creatinine Ratio 15.6 8-20 Calcium 9.5 mg/dL 8.6-10.3 Total Protein 7.2 g/dL 6.4-8.9 Albumin 4.0 g/dL 3.2-5.2 Globulin 3.2 g/dL 2-4 Albumin/Globulin Ratio 1.3 1-3 Total Bilirubin 0.40 mg/dL 0.2-1.0 Alkaline Phosphatase 81 U/L 34-104 Alt 21 U/L 7-52 Ast 18 U/L 13-39 Egfr Non- 66.9 >60 Egfr 86.0 >60 23 Laboratory test finding 05/25/2014 LDL Cholesterol Direct 72 mg/dL 24 Basic Metabolic Panel 05/21/2014 Sodium 141 mmol/L 133-145 Potassium 4.8 mmol/L 3.5-5.0 Chloride 105 mmol/L 101-111 Co2 Carbon Dioxide 32 mmol/L 22-32 Anion Gap 4 mmol/L 2-11 Glucose 115 mg/dL High 70-100 Blood Urea Nitrogen 16 mg/dL 6-24 Creatinine 1.25 mg/dL High 0.67-1.17 BUN/Creatinine Ratio 12.8 8-20 Calcium 9.4 mg/dL 8.6-10.3 Egfr Non- 57.1 >60 Egfr 73.4 >60 25 Lipid Profile (Trig/Chol/HDL) 05/21/2014 Triglycerides 87 mg/dL 26 Cholesterol 141 mg/dL 27 HDL Cholesterol 46.6 mg/dL 28 LDL Cholesterol 77 mg/dL 29 Laboratory test finding 10/04/2012 Uric Acid 6.7 mg/dL 2.6-7.2 Lipid Profile (Trig/Chol/HDL) 10/04/2012 Triglycerides 109 mg/dL 40-200 Cholesterol 173 mg/dL Less than 200 HDL Cholesterol 64 mg/dL High 40-60 30 Cholesterol/HDL Ratio 2.7 Average 1-4.44 LDL Cholesterol 87.2 mg/dL Less Than 100 31 Vitamin D, 25 Hydroxy 08/23/2012 25-Hydroxy Vitamin D2 <4.0 ng/mL 25-Hydroxy Vitamin D3 21 ng/mL 25-Hydroxy Vitamin D Total 21 ng/mL 32 Laboratory test finding 08/23/2012 Hemoglobin A1c 5.9 % Less than 6.0 33 TSH (Thyroid Stimulating Horm) 1.08 miu/mL 0.34-5.60 Comp Metabolic Panel 08/23/2012 Sodium 137 mmol/L 133-145 Potassium 4.3 mmol/L 3.5-5.0 Chloride 100 mmol/L Low 101-111 Co2 Carbon Dioxide 31.0 mmol/L 22-32 Anion Gap 6.0 mmol/L 2-11 Glucose 78 mg/dL 70-100 Blood Urea Nitrogen 13 mg/dL 6-24 Creatinine 1.20 mg/dL 0.50-1.40 BUN/Creatinine Ratio 10.8 8-20 Calcium 9.7 mg/dL 8.1-9.9 Total Protein 7.4 g/dL 6.2-8.1 Albumin 4.2 g/dL 3.2-5.2 Globulin 3.2 g/dL 2-4 Albumin/Globulin Ratio 1.3 1-3 Total Bilirubin 0.6 mg/dL 0.4-1.5 Alkaline Phosphatase 88 U/L 30-110 Alt 30 U/L 14-54 Ast 28 U/L 12-42 Egfr Non- 60.0 >60 Egfr 77.2 >60 34 1 Because ethnic data is not always readily available, this report includes an eGFR for both -Americans and non- Americans. The National Kidney Disease Education Program (NKDEP) does not endorse the use of the MDRD equation for patients that are not between the ages of 18 and 70, are , have extremes of body size, muscle mass, or nutritional status, or are non- or non-. According to the National Kidney Foundation, irrespective of diagnosis, the stage of the disease is based on the level of kidney function: Stage Description GFR(mL/min/1.73 m(2)) 1 Kidney damage with normal or decreased GFR 90 2 Kidney damage with mild decrease in GFR 60-89 3 Moderate decrease in GFR 30-59 4 Severe decrease in GFR 15-29 5 Kidney failure <15 (or dialysis) 2 Acute inflammation: >10.00 3 [id number] 4 Because ethnic data is not always readily available, this report includes an eGFR for both -Americans and non- Americans. The National Kidney Disease Education Program (NKDEP) does not endorse the use of the MDRD equation for patients that are not between the ages of 18 and 70, are , have extremes of body size, muscle mass, or nutritional status, or are non- or non-. According to the National Kidney Foundation, irrespective of diagnosis, the stage of the disease is based on the level of kidney function: Stage Description GFR(mL/min/1.73 m(2)) 1 Kidney damage with normal or decreased GFR 90 2 Kidney damage with mild decrease in GFR 60-89 3 Moderate decrease in GFR 30-59 4 Severe decrease in GFR 15-29 5 Kidney failure <15 (or dialysis) 5 [id number] Therapeutic target for the treatment of diabetes Mellitus patients is <7% HBA1C, and in selective patients <6.0%.Please refer to [place] [employer] Diabetic care guidelines for further information. 7 >100 to <200 pg/mL: likely compensated congestive heart failure (CHF) 200 to 400 pg/mL: likely moderate CHF >400 pg/mL: likely moderate to severe CHF 8 76 pg/mL (HIGH) Reference Value: 18-64 ADDITIONAL INFORMATION This test was developed and its performance characteristics determined by [facility] in a manner consistent with CLIA requirements. This test has not been cleared or approved by the U.S. Food and Drug Administration. Test Performed by: [facility] [place] [address] Social Services Counselor: Denzel Jackman II, M.D., Ph.D. 9 [facility] [id number] 10 Because ethnic data is not always readily available, this report includes an eGFR for both -Americans and non- Americans. The National Kidney Disease Education Program (NKDEP) does not endorse the use of the MDRD equation for patients that are not between the ages of 18 and 70, are , have extremes of body size, muscle mass, or nutritional status, or are non- or non-. According to the National Kidney Foundation, irrespective of diagnosis, the stage of the disease is based on the level of kidney function: Stage Description GFR(mL/min/1.73 m(2)) 1 Kidney damage with normal or decreased GFR 90 2 Kidney damage with mild decrease in GFR 60-89 3 Moderate decrease in GFR 30-59 4 Severe decrease in GFR 15-29 5 Kidney failure <15 (or dialysis) 11 Desirable <150 Borderline high 150-199 High 200-499 Very High >500 12 Desirable <200 Borderline high 200-239 High >239 13 Low <40 Desirable: 40-60 High: >60 14 Desirable: <100 mg/dL Near Optimal: 100-129 mg/dL Borderline High: 130-159 mg/dL High: 160-189 mg/dL Very High: >189 mg/dL 15 [facility] [id number] 16 Therapeutic target for the treatment of diabetes Mellitus patients is <7% HBA1C, and in selective patients <6.0%.Please refer to [place] [employer] Diabetic care guidelines for further information. 17 Because ethnic data is not always readily available, this report includes an eGFR for both -Americans and non- Americans. The National Kidney Disease Education Program (NKDEP) does not endorse the use of the MDRD equation for patients that are not between the ages of 18 and 70, are , have extremes of body size, muscle mass, or nutritional status, or are non- or non-. According to the National Kidney Foundation, irrespective of diagnosis, the stage of the disease is based on the level of kidney function: Stage Description GFR(mL/min/1.73 m(2)) 1 Kidney damage with normal or decreased GFR 90 2 Kidney damage with mild decrease in GFR 60-89 3 Moderate decrease in GFR 30-59 4 Severe decrease in GFR 15-29 5 Kidney failure <15 (or dialysis) 18 Desirable <150 Borderline high 150-199 High 200-499 Very High >500 19 Desirable <200 Borderline high 200-239 High >239 20 Low <40 Desirable: 40-60 High: >60 21 Desirable: <100 mg/dL Near Optimal: 100-129 mg/dL Borderline High: 130-159 mg/dL High: 160-189 mg/dL Very High: >189 mg/dL 22 Therapeutic target for the treatment of diabetes Mellitus patients is <7% HBA1C, and in selective patients <6.0%.Please refer to [place] [employer] Diabetic care guidelines for further information. 23 Because ethnic data is not always readily available, this report includes an eGFR for both -Americans and non- Americans. The National Kidney Disease Education Program (NKDEP) does not endorse the use of the MDRD equation for patients that are not between the ages of 18 and 70, are , have extremes of body size, muscle mass, or nutritional status, or are non- or non-. According to the National Kidney Foundation, irrespective of diagnosis, the stage of the disease is based on the level of kidney function: Stage Description GFR(mL/min/1.73 m(2)) 1 Kidney damage with normal or decreased GFR 90 2 Kidney damage with mild decrease in GFR 60-89 3 Moderate decrease in GFR 30-59 4 Severe decrease in GFR 15-29 5 Kidney failure <15 (or dialysis) 24 Desirable <100 Near Optimal 100-129 Borderline high 130-159 High 160-189 Very High >189 25 Because ethnic data is not always readily available, this report includes an eGFR for both -Americans and non- Americans. The National Kidney Disease Education Program (NKDEP) does not endorse the use of the MDRD equation for patients that are not between the ages of 18 and 70, are , have extremes of body size, muscle mass, or nutritional status, or are non- or non-. According to the National Kidney Foundation, irrespective of diagnosis, the stage of the disease is based on the level of kidney function: Stage Description GFR(mL/min/1.73 m(2)) 1 Kidney damage with normal or decreased GFR 90 2 Kidney damage with mild decrease in GFR 60-89 3 Moderate decrease in GFR 30-59 4 Severe decrease in GFR 15-29 5 Kidney failure <15 (or dialysis) 26 Desirable <150 Borderline high 150-199 High 200-499 Very High >500 27 Desirable <200 Borderline high 200-239 High >239 28 Low <40 Desirable: 40-60 High: >60 29 Desirable <100 Near Optimal 100-129 Borderline high 130-159 High 160-189 Very High >189 30 HDL Interpretation: Undesirable: High Risk: Less than 40 mg/dL Desirable: Low Risk: Greater than 60 mg/dL 31 LDL Interpretation: Low Risk Optimal Level: LDL Less than 100 mg/dL Near or Above Optimal: LDL 100-129 mg/dL Borderline High Risk: LDL 130-159 mg/dL High Risk: LDL 160-189 mg/dL Very High Risk: LDL Greater than 189 mg/dL 32 Interpretation: 10-24 (mild to moderate deficiency) -- REFERENCE VALUE -- 25-HYDROXY D TOTAL (D2+D3) Optimum levels in the normal population are 25-80 Test Performed by: [facility] [address] [address] Social Services Counselor: Jarrett Rubio III, M.D. 33 Therapeutic target for the treatment of diabetes Mellitus patients is <7% HBA1C, and in selective patients <6.0%.Please refer to [place] [employer] Diabetic care guidelines for further information. 34 Because ethnic data is not always readily available, this report includes an eGFR for both -Americans and non- Americans. The National Kidney Disease Education Program (NKDEP) does not endorse the use of the MDRD equation for patients that are not between the ages of 18 and 70, are , have extremes of body size, muscle mass, or nutritional status, or are non- or non-. According to the National Kidney Foundation, irrespective of diagnosis, the stage of the disease is based on the level of kidney function: Stage Description GFR(mL/min/1.73 m(2)) 1 Kidney damage with normal or decreased GFR 90 2 Kidney damage with mild decrease in GFR 60-89 3 Moderate decrease in GFR 30-59 4 Severe decrease in GFR 15-29 5 Kidney failure <15 (or dialysis) Procedures Date CPT Code Description Status 12/28/2017 04905 Icd eval w/iterative adjment single lead Icd Completed 12/28/2017 90086 Icd eval w/iterative adjment single lead Icd Completed 11/02/2017 85486 ECHO Transthoracic, Real-Time 2D With Doppler And Color Completed Flow 11/02/2017 65667 ECHO Transthoracic, Real-Time 2D With Doppler And Color Completed Flow 09/12/2017 28835 EKG Tracing & Interpretation Completed 12/24/2016 26123 Icd eval w/iterative adjment single lead Icd Completed 09/14/2016 68505 Icd Eval Sing,Dual,Multi Lead Remote Recpt Transm Tech Completed Rev Tech S 09/14/2016 12503 Icd Check Remote Up To 90 Days Single,Dual,Multiple Completed Lead 09/03/2016 85856 EKG Tracing & Interpretation Completed 07/15/2016 16870 EKG Tracing & Interpretation Completed 05/18/2016 91266 Icd Check Remote Up To 90 Days Single,Dual,Multiple Completed Lead 05/18/2016 31824 Icd Eval Sing,Dual,Multi Lead Remote Recpt Transm Tech Completed Rev Tech S 02/10/2016 52794 ECHO Transthoracic, Real-Time 2D With Doppler And Color Completed Flow 02/10/2016 24502 Icd eval w/iterative adjment single lead Icd Completed 01/23/2016 69941 EKG Tracing & Interpretation Completed 01/14/2016 27603 Icd Check Single,Dual Or Multiple In Person W/ Incl Completed Heart Rhyth 08/22/2015 14531 EKG Tracing & Interpretation Completed 04/29/2015 64401 Icd Eval Sing,Dual,Multi Lead Remote Recpt Transm Tech Completed Rev Tech S 04/29/2015 88180 Icd Check Remote Up To 90 Days Single,Dual,Multiple Completed Lead 12/23/2014 70071 Icd Check Single,Dual Or Multiple In Person W/DR Incl Completed Heart Rhyth 08/20/2014 87916 Icd Eval Sing,Dual,Multi Lead Remote Recpt Transm Tech Completed Rev Tech S 08/20/2014 90043 Icd Check Remote Up To 90 Days Single,Dual,Multiple Completed Lead 06/03/2014 35633 EKG Tracing & Interpretation Completed 05/26/2014 25385 ECHO Transthorasic Realtime 2D W Doppler & Color Flow Completed Hosp 04/17/2014 44070 Icd Eval Sing,Dual,Multi Lead Remote Recpt Transm Tech Completed Rev Tech S 04/17/2014 29660 Icd Check Remote Up To 90 Days Single,Dual,Multiple Completed Lead 12/18/2013 58614 EKG Tracing & Interpretation Completed 12/13/2013 01286 Icd eval w/iterative adjment single lead Icd Completed 12/10/2013 61734 ECHO Transthoracic, Real-Time 2D With Doppler And Color Completed Flow 08/14/2013 20424 Icd eval w/iterative adjment single lead Icd Completed 07/16/2013 96424 Icd Eval Sing,Dual,Multi Lead Remote Recpt Transm Tech Completed Rev Tech S 07/16/2013 54058 Icd Check Remote Up To 90 Days Single,Dual,Multiple Completed Lead 04/17/2013 02896 Icd Check Remote Up To 90 Days Single,Dual,Multiple Completed Lead 04/17/2013 62337 Icd Eval Sing,Dual,Multi Lead Remote Recpt Transm Tech Completed Rev Tech S 12/26/2012 40346 ECHO Transthoracic, Real-Time 2D With Doppler And Color Completed Flow 12/20/2012 12202 Stress Test Completed 12/20/2012 74089 Myocardial Perfusion Imaging Tomographic (Spect) Completed Multiple Studies 12/11/2012 22592 Icd Eval Sing,Dual,Multi Lead Remote Recpt Transm Tech Completed Rev Tech S 12/11/2012 97391 Icd Check Remote Up To 90 Days Single,Dual,Multiple Completed Lead 11/30/2012 25732 EKG Tracing & Interpretation Completed 09/11/2012 30382 Icd Eval Sing,Dual,Multi Lead Remote Recpt Transm Tech Completed Rev Tech S 09/11/2012 18718 Icd Check Remote Up To 90 Days Single,Dual,Multiple Completed Lead 06/08/2012 46070 Icd Eval Sing,Dual,Multi Lead Remote Recpt Transm Tech Completed Rev Tech S 06/08/2012 05001 Icd Check Remote Up To 90 Days Single,Dual,Multiple Completed Lead 04/25/2012 71741 Icd eval w/iterative adjment single lead Icd Completed Encounters Type Date Location Provider CPT E/M Dx Office Visit 02/06/2018 3:20p [facility] Hali Payne M.D. 77482 I25.5 [facility] I25.2 I25.10 R42 Office Visit 11/14/2017 10:58a [facility] ,letitia Lopez 87957 M48.061 [facility] [place] I10 E78.5 Office Visit 11/13/2017 10:[place] [address] M48.061 ,letitia Chand MD I10 E78.5 Office Visit 11/12/2017 10:58a [place] David Callejas 89623 M48.061 Assoc,letitia Chand MD I10 E78.5 Office Visit 11/11/2017 7:00a [facility] [address] M47.26 Z86.73 Z79.01 I10 Office Visit 11/11/2017 7:00a [facility] Kelly Augustin PA-C 92733 M51.36 Of [facility] Office Visit 11/11/2017 10:57a [facility] Blayne Callejas 20081 M48.061 Assoc,pc Hospitalists MD Jagruti I10 E78.5 Office Visit 11/10/2017 10:57a [facility] Assoc,pc Ge Abreu 32743 M54.5 Hospitalists Bassem I10 E78.5 Office Visit 11/03/2017 9:40a [facility] Linda Payne M.D. 53962 I25.5 [facility] AT [facility] I25.2 Z95.810 H81.399 R42 E87.5 I65.23 Office Visit 09/12/2017 2:40p [facility] Linda Payne M.D. 05646 I25.5 [facility] Z95.810 I25.2 I25.10 I23.6 Office Visit 03/11/2017 3:00p [facility] LANDON Morales 71286 I25.5 Z95.810 I50.42 Office Visit 02/11/2017 2:30p [facility] LANDON Morales 79560 R53.83 I25.5 Z95.810 Office Visit 01/28/2017 3:30p [facility] Linda Payne M.D. 08377 I25.5 [facility] Z95.810 I50.42 R53.83 Office Visit 10/15/2016 3:15p [facility] Linda Payne M.D. 55176 I25.5 [facility] I50.42 Office Visit 09/07/2016 1:15p [facility] Nurse Visit 95388 I50.42 [facility] Office Visit 09/03/2016 1:45p [facility] Linda Payne M.D. 41121 I25.5 [facility] I50.42 R42 R35.0 Office Visit 07/15/2016 1:00p [facility] Linda Payne M.D. 02393 I25.5 Tub Operator Z95.810 I25.2 I25.10 Office Visit 02/27/2016 3:30p [facility] Hali Payne M.D. 59484 I25.5 Tub Operator I25.2 R73.9 R06.02 Office Visit 01/23/2016 1:30p [facility] Hali Payne M.D. 00464 Z95.810 [facility] I25.5 I25.2 E78.0 I10 R53.83 M10.071 Office Visit 08/22/2015 2:45p [facility] Hali Payne M.D. 15848 I25.5 Tub Operator I25.2 E78.0 I10 I25.10 Z95.810 Office Visit 07/30/2014 2:30p [facility] Hali Payne M.D. 86497 425.9 Tub Operator 412 272.4 401.9 V45.02 434.91 Office Visit 06/03/2014 1:15p [facility] Linda Payne M.D. 09169 414.00 Tub Operator 436 412 425.9 Office Visit 05/26/2014 11:14a [facility] [place] [address] 434.91 Services Of [facility] 272.4 414.00 401.9 Office Visit 05/26/2014 3:26p [facility]oc, Anabel Mckinney, 58198 434.91 [facility] 272.4 414.00 401.9 Office Visit 05/25/2014 3:25p [facility] Tam Osei, 15952 434.91 Assoc, Hospitalists [facility].P[facility] 272.4 414.00 401.9 Office Visit 03/08/2014 9:00a [facility] LANDON Morales 47145ZOL 786.05 Tub Operator 412 V45.02 436 425.9 Office Visit 12/18/2013 9:30a [facility] Hali Payne M.D. 38108 786.09 Tub Operator 786.05 V45.02 412 414.8 Office Visit 11/30/2012 9:00a [facility] Hali Payne M.D. 91029 412 786.09 428.0 436 Office Visit 04/25/2012 3:45p [facility] Hali Payne M.D. 46583 412 414.8 427.1 436 Plan of Care Future Appointment(s):03/24/2018 11:00 am - Hali Payne M.D. at [facility] AT [facility]03/07/2018 11:45 am - Hali Payne M.D. at [facility]02/06/2018 - Hali Payne M.D.I25.5 Ischemic cardiomyopathyNew Medication:Corlanor 5 mgComments:I would like to try Corlinor for your weak heart.It lowers heart rate but not blood pressure and doesn't lead to fatigue.Follow up:Please provide samples of Corlanor for the patient. Please help me send eRx. OV after [id number] Old myocardial llgmewhosfQ95.10 Athscl heart disease of [place] coronary artery w/o ang [id number] Dizziness and giddinessFollow up:RESCHEDULE carotid Doppler and stress test ordered in October.
[2018-03-07 12:22] LABS: EGFR Non-African American 62.8 (>60)
--- NOTE | 2018-03-07 12:29 | RAD ---
HISTORY: subacute l side weakness; COMPARISONS: August 24, 2016 TECHNIQUE: Multiple contiguous axial CT scans were obtained of the head without intravenous contrast. FINDINGS: HEMORRHAGE/INFARCT: There is no hemorrhage or acute infarct. MASSES/SHIFT: There is no mass or shift. EXTRA-AXIAL SPACES: There are no extra-axial fluid collections. SULCI AND VENTRICLES: The sulci and ventricles are normal in size and position for the patient's stated age. CEREBRUM: There is stable encephalomalacia within the left MCA territory consistent with remote infarct. BRAINSTEM: There are no focal parenchymal abnormalities. CEREBELLUM: There are no focal parenchymal abnormalities. VESSELS: There is calcification of the cavernous segments of the internal carotid arteries bilaterally and of the distal vertebral arteries bilaterally. PARANASAL SINUSES: There is mucosal thickening of ethmoid air cells. ORBITS: The orbits are unremarkable. BONES AND SOFT TISSUE: There is a stable typically takes nodule along the right parietal scalp consistent with an epidermal inclusion cyst. OTHER: None IMPRESSION: NO ACUTE INTRACRANIAL PATHOLOGY. STABLE ENCEPHALOMALACIA CONSISTENT WITH REMOTE LEFT MCA INFARCT.
--- NOTE | 2018-03-07 12:33 | RAD ---
HISTORY: Neurological Changes/Code Bajwa COMPARISONS: October 28, 2017 VIEWS: 1: frontal AP view of the chest at 12:10 PM FINDINGS: LINES AND TUBES: A left-sided AICD is noted. CARDIOMEDIASTINAL SILHOUETTE: The cardiomediastinal silhouette is normal for portable technique. PLEURA: The costophrenic angles are sharp. No pleural abnormalities are noted. LUNG PARENCHYMA: The lungs are clear. ABDOMEN: The upper abdomen is clear. There is no subphrenic gas. BONES AND SOFT TISSUES: No bone or soft tissue abnormalities are noted. IMPRESSION: NO ACTIVE CARDIOPULMONARY DISEASE.
[2018-03-07] MEDS ORDERED: Magnesium Hydroxide LIQ* 30 ML UDC PO PRN (14:22)
[2018-03-07 14:56] LABS: Urine Appearance Cloudy; Urine Blood Negative (Negative); Urine Color Yellow; Urine Ketones Negative (Negative); Urine Protein Negative (Negative); Urine Urobilinogen Negative (Negative)
[2018-03-07] MEDS ORDERED: Acetaminophen TAB* 325 MG PO PRN (15:54)
[2018-03-07] MEDS ORDERED: Acetaminophen TAB* 325 MG ONE (17:34)
--- NOTE | 2018-03-07 20:27 | HP ---
CC: Dr. Vania Ramirez * HISTORY AND PHYSICAL: DATE OF ADMISSION: 03/07/18. PROVIDER: Heather Cabrera NP. PRIMARY CARE PHYSICIAN: Dr. Vania Ramirez. ATTENDING PHYSICIAN: Dr. Wise * (dictated by Heather Cabrera NP). CHIEF COMPLAINT: Left facial droop. HISTORY OF PRESENT ILLNESS: This is an 72-year-old male with a past medical history of prior CVA with right-sided residual deficits, hypertension, hyperlipidemia, chronic systolic heart failure with an ICD (with an EF of 20% to 25% as of echo 2014 in our records. Sees Dr Payne), CAD with a history of [place] and spinal stenosis, who is chronically anticoagulated on Coumadin due to hx LV clot. He presented to the ED after his noticed a left facial droop and he had also been having left eye pain and blurry vision for about a week. His also noted that he had been increasingly dizzy and with a lack of balance, and his speech had been more slurred also for about 1 week. He did have a left sided headache since about 10 days ago that was initially relieved by Tylenol, but recurred. The patient denied any head trauma. The patient's NIH score on advise on the admission was 2, so he was not a candidate for tPA. The patient underwent a head CT, which showed no acute intracranial pathology. Pt also had a carotid doppler on 02/17/18, which showed less than 50% bilateral proximal internal carotid artery stenosis. The patient's vital signs were stable and his labs were unremarkable. On exam today, he did have some flattening of his left nasolabial fold as well as slurred speech, however, it is unclear how different this is from his baseline due to his prior stroke deficits. He denied dizziness at rest and shortness of breath as well as chest pain, and nausea, vomiting, and abdominal pain. Since the onset of these symptoms was 7-10 days ago, and he is already anticoagulated and on statin therapy with LDL at goal, I will appreciate neuro recommendations about any additional steps that can be taken. The hospitalist team will admit him for observation for TIA. PAST MEDICAL HISTORY: Hypertension, hyperlipidemia, CHF with a reduced EF of 20 % to 25% in 2015 with an ICD, coronary artery disease with a history of [place], history of CVA and spinal stenosis. PAST SURGICAL HISTORY: Appendectomy, cardiac cath and back surgery in the remote past. MEDICATIONS: Home Medications: 1. Garlic 5000 mg p.o. daily. 2. Co-Q10 100 mg p.o. daily. 3. Vitamin D3, 5000 units p.o. daily. 4. Spironolactone 12.5 mg p.o. every other day. 5. Myrbetriq 50 mg p.o. daily. 6. Lasix 20 mg p.o. every other day. 7. Ivabradine 5 mg p.o. b.i.d. 8. Warfarin 5 mg p.o. daily. 9. Crestor 40 mg p.o. daily. ALLERGIES: HEPARIN and IODINE. FAMILY HISTORY: The patient has a family history of heart disease in his father. No family history of diabetes or cancer. SOCIAL HISTORY: The patient has never been a smoker. The patient does not drink alcohol. His , Scott Pham is his medical decision maker. REVIEW OF SYSTEMS: I performed a 14-point review of systems. All the pertinent positives and negatives are mentioned in the History of Present Illness. The remaining review of systems are negative. PHYSICAL EXAMINATION GENERAL APPEARANCE: The patient is alert, pleasant, and appears to be in no acute distress. VITAL SIGNS: Temperature 97.5, heart rate 63, blood pressure 142/67, respiratory rate 23, pulse ox 92% on room air. HEENT: Normocephalic, atraumatic. Pupils are equal, round, and reactive to light and accommodation. EOMs are intact. NECK: Supple. No lymphadenopathy noted. No JVD appreciated. RESPIRATORY: No accessory muscle use. The lungs were clear to auscultation, normal work of breathing. CARDIAC: Regular, rate, and rhythm. S1 and S2 present. No murmurs, rubs, or gallops heard. ABDOMEN: Soft, nontender, and nondistended. There are bowel sounds x4. EXTREMITIES: There is no lower extremity edema. DP and PT pulses are 2+ and symmetric. MUSCULOSKELETAL: No clubbing or cyanosis noted. The patient exhibited 5/5 strength in all 4 extremities. Able to lift all 4 extremities off the bed. The patient did not experience any sensory deficits. NEUROLOGIC: The patient is alert and oriented x3. PSYCH: The patient is calm and cooperative. SKIN: There are no rashes or abnormalities seen. LABORATORY DATA: White blood cell count 9.9, hemoglobin 16.2, hematocrit 48, platelet count 216. Sodium 140, potassium 4.2, chloride 106, carbon dioxide 27 , BUN 16, creatinine 1.14, glucose 122, LDL 67. INR is 2.0. DIAGNOSTICS: EKG: Normal sinus rhythm without signs of ischemia. Brain CT: No acute intracranial pathology, stable encephalomalacia consistent with remote left MCA infarct. Also, of note, the patient had a carotid Doppler on 02/17/18, which showed less than 50% bilateral proximal internal carotid artery stenosis. ASSESSMENT: The patient is a 72-year-old male with a past medical history significant for prior cerebrovascular accident and complex cardiac history, anticoagulated on Coumadin, who presented to the ED with left facial droop and left eye pain and left-sided headache, who will be admitted to the hospitalist service for possible transient ischemic attack. PLAN/RECOMMENDATIONS: 1. TIA. Brain CT without acute intracranial pathology, NIH on arrival was 2, so he is not a tPA candidate. The patient is already anticoagulated with Coumadin and is on Crestor and Corlanor. LDL this morning was 67. The patient will be seen by Neuro, appreciate their input. He did have a recent carotid Doppler as mentioned above. He will be evaluated by PT and we will also do orthostatics due to his complaint of dizziness. 2. Left eye pain. In the ED, the patient's intraocular pressure was measured at 28, 23, and 24. The patient's petroleum engineering professor, Dr. Gonzalez's office was contacted and said that the patient's eye pressures are usually in the low 20s, so there is no indication for emergency treatment at this time and that they will arrange followup with the patient. 3. Chronic systolic heart failure, on home O2. There is no evidence of an acute heart failure exacerbation. No JVD. No lower extremity edema and clear lung sounds. We will continue the patient's home Lasix as well as Aldactone. 4. Urinary retention. Continue Myrbetriq. 5. Diet: The patient will be n.p.o. until his swallow eval has been completed after which he can be on a heart healthy diet. 6. DVT prophylaxis: The patient is anticoagulated on Coumadin, but can also have SCDs. 7. Code status: The patient is full code. 8. Disposition: The patient will be admitted for observation. TIME SPENT: Time spent for this admission was 60 minutes and 35 minutes was spent with the patient discussing medications, past medical history, and the events leading up to the arrival today, and performing the physical examination. The case has been reviewed with the attending, Dr. Wise, who agrees with the plan of care. HEATHER CABRERA, JODY [id number]/[facility] #: [id number] VALDEZ
--- NOTE | 2018-03-07 20:51 | CONS ---
CC: Dr. Payne.* NEUROLOGY CONSULTATION: DATE OF CONSULT: 03/07/18 LOCATION: He is in the emergency room to be admitted to room 448. REFERRING PROVIDER: Dr. De La Rosa. CHIEF COMPLAINT: Weakness. HISTORY OF PRESENT ILLNESS: Eduardo Pham is a 72-year-old right-handed man who visited Dr. Payne's office today when his said that he seemed to have drooping of the right side of his face and the right eye more so than he has in the past. The patient has not had noticed that, but he has been feeling generally weak for at least several weeks. In fact, for about 2 to 3 months, he has been using a cane. 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 He developed pretty severe back pain several months ago and over time in physical therapy, it resolved. He was in the hospital on 11/10/17 overnight because of back pain. He saw Kelly Augustin of Neurosurgery as well as Dr. Jordan of Neurology in consultation. There is no acute changes in the last couple of days as best as I can tell. He does state that he feels very tired at least for several days if not for a week or so. PAST MEDICAL HISTORY: Significant for left middle cerebral artery infarction about 10 years ago. He was found to have clot in his left atrium and he has been on chronic anticoagulation since. He has a history of heart disease and had defibrillator in. He was at Dr. Payne's office apparently for nuclear stress test today, which was not carried out. He has a history of hypertension , dyslipidemia, and remote history of lumbar spine surgery decades ago. MEDICATIONS: At home consist of: 1. Venlafaxine extended release 75 mg p.o. daily. 2. Vitamin D 5000 units p.o. daily. 3. Spironolactone 12.5 mg p.o. every other day. 4. Myrbetriq 50 mg p.o. daily. 5. Furosemide 20 mg p.o. every other day. 6. Warfarin 5 mg p.o. daily. 7. Corlanor 5 mg p.o. b.i.d. 8. Crestor 40 mg p.o. b.i.d. 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 REVIEW OF SYSTEMS: He is a nonsmoker. Lives at home with his . He has not had any recent falls. He had headache, which began about a week ago and still has a little bit of pain in the left hinduism. No pain with chewing. No recent fevers or sweats. No recent falls. No new shortness of breath, but he feels very tired. His defibrillators never gone off. He does not have any chest pain. His weight has been stable. There is no history of diabetes. He has been feeling dizzy lately, which sounds to be more faint than anything. PHYSICAL EXAMINATION: General: He is well nourished and well hydrated. Vital Signs: Temperature 97.5, blood pressure 140/70, heart rates in the 60s and in sinus on the monitor with frequent ectopy, respiratory rate is 20 and oxygen saturation is 92% on room air. Heart is in a regular rhythm with occasional extra beats. I do not hear any murmurs. Neck is supple and nontender. There are no cervical bruits. Lungs are clear anterolaterally. Neurologic exam, pupils are react equally from 3 down to 2 mm. Funduscopic exam reveals sharp discs bilaterally. Eye movements are full. There is no nystagmus. Visual sena are full to confrontation. Facial musculature is notable for central pattern right facial weakness. Palate and tongue appear normal, palate rises symmetrically and tongue protrudes in the midline. There is a mild buccal dysarthria. Sensory exam is notable for diminished pin and light touch in the right side of the face relative to the left. He is a bit hard of hearing. On motor exam, he has spastic right hemiplegia, which is more in the leg than the arm. There is no drift of he right arm. Finger taps are slow in the right hand. He has resistive strength in the right leg. He has good strength in left arm and leg. He is hyperreflexic in the right leg and right biceps. Plantar responses are flexor in the left and extensor in the right. There is diminished light touch and pin discrimination in the right arm and right leg relative to the left. He is aphasic, but able to communicate effectively. He has word finding difficulty at times. He seems to have very good comprehension. LABORATORY DATA/DIAGNOSTIC STUDIES: Laboratory data includes CT of the brain, which I reviewed and reveals an old left middle cerebral artery infarction. There is no evidence of hemorrhage of acute infarction. He had a carotid ultrasound study on 02/17/18 as an outpatient, which reveals nonstenotic atherosclerotic changes of both carotid bifurcations. There is less than 50% stenosis bilaterally. Blood work from today notable for glucose of 122, troponin 0.01, otherwise normal chemistry panel. Cholesterol today is 145 and LDL 67. CBC today is unremarkable. Platelet count 260,000. INR is 2.0, PTT 43. IMPRESSION: General lassitude and old cerebrovascular accident. I really do not see anything that looks like a new stroke, but he is going to be admitted and put on telemetry. He has defibrillator and so MRI would not be obtainable. He just had a carotid ultrasound a couple of weeks ago so that does not need repeating. He will continue on warfarin. I will check a TSH as well as a CK given that he is on statins. His sedimentation rate came back at just 11, so I do not think he has temporal arteritis. We will continue to follow him along with you. [id number]/[facility] #: [id number] VALDEZ
[2018-03-07] MEDS: Ivabradine (NF) 5 MG TABLET PO SCH (21:32)
[2018-03-08 06:27] LABS: INR 1.65 (0.77-1.02)
[2018-03-08] MEDS: Ivabradine (NF) 5 MG TABLET PO SCH (08:13)
[2018-03-08] MEDS ORDERED: CHOLECALCIFEROL 5000 UNIT PO SCH (09:00)
[2018-03-08] MEDS ORDERED: Venlafaxine EXT RELEASE CAP* 75 MG PO SCH (09:00)
[2018-03-08] MEDS ORDERED: Warfarin TAB(*) 5 MG PO SCH (09:00)
[2018-03-08] MEDS ORDERED: CMC:Rosuvastatin (NF) 20 MG TAB PO SCH (09:00)
[2018-03-08] MEDS ORDERED: COENZYME Q10 100 MG PO SCH (09:00)
[2018-03-08] MEDS ORDERED: Mirabegron (NF) 50 MG TAB PO SCH (09:00)
[2018-03-08] MEDS ORDERED: Perflutren Lipid Microsphere* 3 ML VIAL ONE (09:20)
--- NOTE | 2018-03-08 11:42 | ECHO ---
Patient: JUANIS CASE [facility] Rec#: [id number] : 1945 Date: 03/08/2018 Age: 72y Height: 189 cm / 74.4 in Weight: 107 kg / 235.8 lbs Sex: M BSA: 2.34 Room#: [facility] Admit Date#: 03/07/2018 Type: Inpatient Referring: Paola Knapp Reading: Hali Payne MD Medical Aides Teacher: Kavitha Banda,DANECS,RDMS CC: Vania Ramirez MD Transthoracic Echocardiogram Indication: TIA BP: 102/63 HR: 71 Rhythm: NSR with PVCs Findings History: CVA, CAD, AR, HTN, HLD, CHF, cardiomyopathy, LA clot. Technical Comments: The study quality is fair. Left Ventricle: The left ventricular chamber size is mildly dilated. There is no left ventricular hypertrophy. There are multiple regional wall motion abnormalities. The apex is akinetic, the base of the lateral wall moves best. No thrombus seen in apex (echo contrast used). There is severely decreased left ventricular systolic function. The estimated ejection fraction is 20-25%. Abnormal left ventricular diastolic filling is observed, consistent with impaired relaxation. Left Atrium: The left atrium is mild to moderately dilated. Right Ventricle: The right ventricular chamber size and systolic function are within normal limits. A pacemaker wire is visualized in the right ventricle. Right Atrium: The right atrial cavity size is normal. The bubble study is negative. A patent foramen ovale is not demonstrated with color Doppler and agitated contrast. Aortic Valve: The aortic valve is trileaflet. The aortic valve leaflets are mildly thickened. There is a trace of aortic regurgitation. There is no evidence of aortic stenosis. Mitral Valve: The mitral valve leaflets are mildly thickened. There is a trace of mitral regurgitation. There is no evidence of mitral stenosis. Tricuspid Valve: The tricuspid valve leaflets are normal. There is no evidence of tricuspid valve regurgitation. Unable to estimate the right ventricular systolic pressure. Pulmonic Valve: The pulmonic valve structure is not well visualized. There is no evidence of pulmonic regurgitation. Pericardium: There is no significant pericardial effusion. Aorta: The aortic root appears normal. There is no dilatation of the aortic arch. Pulmonary Artery: The main pulmonary artery is not well visualized. Venous: The inferior vena cava is dilated. There is a greater than 50% respiratory change in the inferior vena cava dimension. Contrast: Definity was used to optimize study. A total of 3 ml was used. Intravenous agitated saline contrast was used to assess intracardiac shunting. Bubble study images 104 and 105. Conclusions The left ventricular chamber size is mildly dilated. Large anterior apical infarct. No thrombus noted in the left ventrical. There is severely decreased left ventricular systolic function. The estimated ejection fraction is 20-25%. The right ventricular chamber size and systolic function are within normal limits. The left atrium is mild to moderately dilated. The bubble study is negative, no evidence of intracardiac shunting based on bubble study and color Doppler. All valves show good function. There is a trace of aortic regurgitation. There is a trace of mitral regurgitation. Compared with prior echo of 02/10/16, EF is stable, apical scar seen previously, LV dilatation is new. Previously restrictive diastolic filling. Valve function is stable. Measurements Name Value Normal Range RVIDd (AP) 2D 2.8 cm (0.9 - 2.6) RVDdMajor (2D) 3 cm (2.2 - 4.4) RAd ISD 4CH 5 cm (3.4 - 4.9) RA (A4C)W 4 cm (2.9 - 4.6) IVSd (2D) 0.9 cm (0.6 - 1) LVPWd (2D) 1 cm (0.6 - 1) LVIDd (2D) 5.8 cm (3.6 - 5.4) LVIDs (2D) 4.6 cm - LV FS (2D) 21 % (25 - 45) Aortic Annulus 2.4 cm (1.4 - 2.6) Ao root diameter (2D) 3.1 cm (2.1 - 3.5) Ascending Ao 3.2 cm (2.1 - 3.4) Aortic arch 3.3 cm (1.8 - 3.4) LA dimension (AP) 2D 4.5 cm (2.3 - 3.8) LAd ISD 4CH 6 cm (2.9 - 5.3) LA ISD 4CH W 4.6 cm (2.5 - 4.5) Name Value Normal Range LA ESV BP (A/L) index 39 ml/m2 - Name Value Normal Range MV E-wave Vmax 0.8 m/sec - MV deceleration time 198 msec - MV A-wave Vmax 0.8 m/sec - MV E:A ratio 1 ratio - P. vein S-wave Vmax 0.4 m/sec - P. vein D-wave Vmax 0.3 m/sec - P. vein S:D Vmax ratio 1.3 ratio - P. vein A-wave duration 137 msec - LV septal e' Vmax 0.06 m/sec - LV lateral e' Vmax 0.09 m/sec - LV E:e' septal ratio 13 ratio - LV E:e' lateral ratio 9 ratio - Name Value Normal Range AV Vmax 1.2 m/sec - AV VTI 29 cm - AV peak gradient 6 mmHg - AV mean gradient 4 mmHg - LVOT Vmax 1 m/sec - LVOT VTI 23 cm - LVOT peak gradient 4 mmHg - LVOT mean gradient 2 mmHg - MILTON Vmax 0.8 m/sec - Name Value Normal Range RAP 8 mmHg - IVC diameter 2.2 cm - Name Value Normal Range PV Vmax 0.8 m/sec - PV peak gradient 2.6 mmHg -
--- NOTE | 2018-03-08 13:53 | DCNOTE ---
Subjective Date of Service: 03/08/18 Interval History: Patient resting in bed. Reports left temporal/frontal sinus area headache this morning that resolved with Tylenol. Patient denies new symptoms, pain, cp, or sob. 14 point ROS completed and all other negative. Patient on Tele. Sinus Rhythm. Occasional PVCs. Occasional Bigeminy Family History: Unchanged from Admission Social History: Unchanged from Admission Past Medical History: Unchanged from Admission Objective Active Medications: Acetaminophen (Tylenol Tab*) 650 mg PO Q6H PRN PRN Reason: PAIN OR FEVER Last Admin: 03/08/18 11:22 Dose: 650 mg Cholecalciferol (Vitamin D3 Cap/Tab (Nf)) 1 cap PO DAILY [facility] Last Admin: 03/08/18 08:13 Dose: Not Given Coenzyme Q10 (Coenzyme Q10 (Nf)) 1 cap PO DAILY [facility] Furosemide (Lasix Tab*) 20 mg PO EVERY OTHER DAY [facility] Ivabradine (Corlanor (Nf)) 5 mg PO BID [facility] Last Admin: 03/08/18 08:13 Dose: Not Given Magnesium Hydroxide (Milk Of [employer] Liq*) 30 ml PO Q4H PRN PRN Reason: CONSTIPATION Mirabegron (Myrbetriq (Nf)) 50 mg PO DAILY [facility] Last Admin: 03/08/18 08:13 Dose: Not Given Rosuvastatin Calcium (Crestor (Nf)) 40 mg PO DAILY [facility] Last Admin: 03/08/18 08:12 Dose: 40 mg Spironolactone (Aldactone Tab*) 12.5 mg PO EVERY OTHER DAY [facility] Venlafaxine HCl (Effexor Xr Cap*) 75 mg PO DAILY [facility] Last Admin: 03/08/18 08:12 Dose: 75 mg Warfarin Sodium (Coumadin Tab(*)) 5 mg PO DAILY [facility]; Protocol Last Admin: 03/08/18 08:12 Dose: 5 mg Vital Signs - 8 hr 03/08/18 07:36 Temperature 97.8 F Pulse Rate 66 Respiratory 16 Rate Blood Pressure 128/75 (mmHg) O2 Sat by Pulse 94 Oximetry Oxygen Devices in Use Now: None Appearance: Comfortable, cooperative, NAD Eyes: No Scleral Icterus, PERRLA Ears/Nose/Mouth/Throat: Clear Oropharnyx, Mucous Membranes Moist Neck: NL Appearance and Movements; NL JVP Respiratory: Symmetrical Chest Expansion and Respiratory Effort, Clear to Auscultation Cardiovascular: NL Sounds; No Murmurs; No JVD, RRR, No Edema Abdominal: NL Sounds; No Tenderness; No Distention Extremities: No Edema, No Clubbing, Cyanosis Neurological: Alert and Oriented x 3, NL Muscle Strength and Tone, - - EOMs and visual sena intact. Tongue midline. Slight flattened facial fold on right ( which is baseline per patient). UE euqal in strength. No drift. RLE slight spastic with leg raise. LLE normal Nutrition: Taking PO's Result Diagrams: 03/07/18 11:50 03/07/18 11:50 Additional Lab and Data: . Microbiology and Other Data: . Diagnostic Imaging: Patient: JUANIS CASE [facility] Rec#: [id number] : 1945 Date: 03/08/2018 Age: 72y Height: 189 cm / 74.4 in Weight: 107 kg / 235.8 lbs Sex: M BSA: 2.34 Room#: [facility] Admit Date#: 03/07/2018 Type: Inpatient Referring: Paola Knapp Reading: Hali Payne MD Reproductive Endocrinologist: Kavitha Banda RD,RDMS CC: Vania Ramirez MD Transthoracic Echocardiogram Indication: TIA BP: 102/63 HR: 71 Rhythm: NSR with PVCs Findings History: CVA, CAD, LA, HTN, HLD, CHF, cardiomyopathy, LA clot. Technical Comments: The study quality is fair. Left Ventricle: The left ventricular chamber size is mildly dilated. There is no left ventricular hypertrophy. There are multiple regional wall motion abnormalities. The apex is akinetic, the base of the lateral wall moves best. No thrombus seen in apex (echo contrast used). There is severely decreased left ventricular systolic function. The estimated ejection fraction is 20-25%. Abnormal left ventricular diastolic filling is observed, consistent with impaired relaxation. Left Atrium: The left atrium is mild to moderately dilated. Right Ventricle: The right ventricular chamber size and systolic function are within normal limits. A pacemaker wire is visualized in the right ventricle. The estimated ejection fraction is 20-25%. The right ventricular chamber size and systolic function are within normal limits. The left atrium is mild to moderately dilated. The bubble study is negative, no evidence of intracardiac shunting based on bubble study and color Doppler. All valves show good function. There is a trace of aortic regurgitation. There is a trace of mitral regurgitation. Compared with prior echo of 02/10/16, EF is stable, apical scar seen previously, LV dilatation is new. Previously restrictive diastolic filling. Valve function is stable. Measurements Name Value Normal Range RVIDd (AP) 2D 2.8 cm (0.9 - 2.6) RVDdMajor (2D) 3 cm (2.2 - 4.4) RAd ISD 4CH 5 cm (3.4 - 4.9) RA (A4C)W 4 cm (2.9 - 4.6) IVSd (2D) 0.9 cm (0.6 - 1) LVPWd (2D) 1 cm (0.6 - 1) LVIDd (2D) 5.8 cm (3.6 - 5.4) LVIDs (2D) 4.6 cm - LV FS (2D) 21 % (25 - 45) Aortic Annulus 2.4 cm (1.4 - 2.6) Ao root diameter (2D) 3.1 cm (2.1 - 3.5) Ascending Ao 3.2 cm (2.1 - 3.4) Aortic arch 3.3 cm (1.8 - 3.4) LA dimension (AP) 2D 4.5 cm (2.3 - 3.8) LAd ISD 4CH 6 cm (2.9 - 5.3) LA ISD 4CH W 4.6 cm (2.5 - 4.5) Name Value Normal Range LA ESV BP (A/L) index 39 ml/m2 - Name Value Normal Range MV E-wave Vmax 0.8 m/sec - MV deceleration time 198 msec - MV A-wave Vmax 0.8 m/sec - MV E:A ratio 1 ratio - P. vein S-wave Vmax 0.4 m/sec - P. vein D-wave Vmax 0.3 m/sec - P. vein S:D Vmax ratio 1.3 ratio - P. vein A-wave duration 137 msec - LV septal e' Vmax 0.06 m/sec - LV lateral e' Vmax 0.09 m/sec - LV E:e' septal ratio 13 ratio - LV E:e' lateral ratio 9 ratio - Name Value Normal Range AV Vmax 1.2 m/sec - AV VTI 29 cm - AV peak gradient 6 mmHg - AV mean gradient 4 mmHg - LVOT Vmax 1 m/sec - LVOT VTI 23 cm - LVOT peak gradient 4 mmHg - LVOT mean gradient 2 mmHg - MILTON Vmax 0.8 m/sec - Name Value Normal Range RAP 8 mmHg - IVC diameter 2.2 cm - Name Value Normal Range PV Vmax 0.8 m/sec - PV peak gradient 2.6 mmHg - Data: . Assess/Plan/Problems-Billing Assessment: 72 yr old male with past medical hx of CVA and complex cardiac hx who presented to the ED with left facial droop, left eye pain, and left headache - Patient Problems (1) TIA (transient ischemic attack) Comment: - Possible TIA versus viral illness versus dehydration - Unable to do MRI due to implanted device. - No left sided deficits noted. Right sided flattened facial fold noted which is residual from previous CVA - Discussed other causes such as viral illness and dehydration with patient and - Discussed discharge with neurologist who agrees and recommends patient follows up with PCP - Patient is on Coumadin which is managed by PCP - Patient is on lipid lowering agent also (2) Dizziness Comment: - Reports intermittent dizziness with position changes since November 2017 - Orthostatics negative - No worseing of these symptoms recently or during hospital stay. - Patient to follow up with PCP (3) Headache Comment: - Patient reports several days of intermittent left temporarol/frontal sinus area headache which resolves with Tylenol. - CT negative - Cannot perform MRI as mentioned above - Reassuring that it is resolved with Tylenol - Discussed adequate hydration - Discussed follow up with PCP (4) Hyperlipidemia Comment: -Continue Rosuvastatin (5) Hypertension Comment: -Continue Lasix and Spirinolactone Status and Disposition: Patient is medically stable for discharge and to follow up with PCP in the next 1 to 3 days Attending: Edita Daugherty
[2018-03-08 14:28] VITALS: BP 129/84
--- NOTE | 2018-03-08 23:24 | DS ---
CC: Dr. Ramirez * DISCHARGE SUMMARY: DATE OF ADMISSION: 03/07/18 DATE OF DISCHARGE: 03/08/18 PRIMARY CARE PROVIDER: Dr. Ramirez. ATTENDING PHYSICIAN: Dr. Daugherty * (dictated by Paola Moraes NP.) PRIMARY DIAGNOSES: 1. Transient ischemic attack. 2. Dizziness. 3. Headache. SECONDARY DIAGNOSES: 1. Hypertension. 2. Hyperlipidemia. 3. Congestive heart failure with reduced ejection fraction of 20% to 25%. 4. Coronary artery disease. 5. Cerebrovascular accident. 6. Spinal stenosis. CONSULTATION WHILE IN THE HOSPITAL: Dr. Damico, Neurology. PROCEDURES WHILE IN THE HOSPITAL: None. STUDIES WHILE IN THE HOSPITAL: 1. Brain CT: Without acute intracranial pathology. 2. Echocardiogram: Compared to prior echo on 02/10/16, EF is stable, apical scar seen previously, LV dilatation is new. Previous restricted diastolic filling. Valve function is stable. Left ventricular chamber size is mildly dilated. No thrombus noted in left ventricle. Bubble study is negative. 3. It should be noted he had carotid ultrasound on 02/17/18 as an outpatient which reveals nonstenotic atherosclerotic changes of both carotid bifurcations. There is less than 50% stenosis bilaterally. DISCHARGE MEDICATIONS: New home medications: No new home medications. Continued home medications: 1. Effexor XR 75 mg p.o. daily. 2. Garlic 5000 mg p.o. daily. 3. CoQ10 100 mg p.o. daily. 4. Vitamin D3 5000 units p.o. daily. 5. Spironolactone 2.5 mg every other day. 6. Myrbetriq 50 mg p.o. daily. 7. Lasix 20 mg p.o. every other day. 8. Corlanor 5 mg p.o. b.i.d. 9. Warfarin 5 mg p.o. daily. 10. Crestor 40 mg p.o. daily. Changed home medications: No meds changed. Discontinued home medications: No home meds discontinued. HISTORY OF PRESENT ILLNESS/HOSPITAL COURSE: Mr. Pham is a 72-year-old male, who presented to Dr. Payne's office on 03/07/18 with his , who said that he seemed to have drooping of the right side of his face and right eye more or so than the past. He was sent to the ED and mentioned left facial droop. He had also been having left eye pain, blurry vision for about a week. also noted that he has been dizzy with the lack of balance and has had a left- sided headache for about 10 days, which is relieved by Tylenol. While in the ED , he had CT as mentioned above which was negative. Admitting provider noted flattening of the left nasolabial fold as well as slurred speech; however, she mentioned it is unclear how different this is from his baseline due to his previous stroke deficits. During this hospitalization, the patient had echo as mentioned above. He received IV fluids and Tylenol. Dr. Damico was consulted who documented that he really does not see anything that looks like a new stroke. He agreed that the patient be admitted on tele. Today, on assessment, the patient is resting in his bed, reports left temporal/ frontal sinus area headache this morning that was resolved with Tylenol. He denies any other symptoms. A 12-point review of systems was completed and all others were negative. Tele monitor was reviewed and the patient noted to be in sinus rhythm with occasional PVCs and occasional bigeminy. The patient is asymptomatic. During my assessment, no left-sided deficit noted. Right-sided flattened facial fold was noted which is a residual from his previous CVA. I discussed with and the patient possible TIA versus viral illness verus dehydration and the inability to do an MRI due to implanted device. I discussed discharging the patient with the neurologist who agrees and recommends the patient follows up with the PCP. The patient will continue his Coumadin which is managed by his PCP. The patient will continue his lipid lowering agent also. and the patient feel safe for discharge and agree with plan. As mentioned in the HPI, the patient reported intermittent dizziness with change in position since November. His orthostatics were negative. He had no worsening symptoms during the hospital stay. The patient will follow up with his PCP. Headache, as mentioned in the HPI, the patient reports several days of intermittent left temporal/frontal sinus area headache that resolved with Tylenol. His CTA was negative. It is reassuring that his headache resolves with Tylenol. We discussed adequate hydration and discussed close followup with PCP. FOLLOWUP: 1. The patient to follow up with PCP and discuss possible Neurology referral if she deems necessary. 2. The patient to follow up with PCP regarding occasional dizziness. 3. The patient to follow up with PCP regarding headache. I discussed reasons for returning to the hospital such as new and worsening symptoms. The patient and agreed to plan. This plan was also discussed with my attending, Dr. Daugherty, who agrees with this plan. PAOLA MORAES, JODY [id number]/[facility] #: [id number] VALDE[place]
[2018-03-09] MEDS ORDERED: Furosemide TAB* 20 MG PO SCH (09:00)
[2018-03-09] MEDS ORDERED: Cholecalciferol TAB* 1000 UNITS PO SCH (09:00)
[2018-03-09] MEDS ORDERED: COENZYME Q10 100 MG PO SCH (09:00)
[2018-03-09] MEDS ORDERED: Spironolactone TAB* 25 MG PO SCH (09:00)
== END 2018-03-08 15:05 | disposition home or self-care (01) ==
LOC: ED 11:28 → MEDTELE 14:22
PROVIDERS: ADMIT Internal Medicine; ATTEND Internal Medicine
DX: G45.9 Transient cerebral ischemic attack, unspecified (principal); R51 Headache; R42 Dizziness and giddiness; I10 Essential (primary) hypertension; E78.5 Hyperlipidemia, unspecified; I50.9 Heart failure, unspecified; I25.10 Atherosclerotic heart disease of native coronary artery without angina pectoris; I63.9 Cerebral infarction, unspecified; M48.04 Spinal stenosis, thoracic region
CPT/HCPCS: 36415; 70450; 71045; 80053; 80061; 81003; 82550; 83605; 84443; 84484; 85025; 85610; 85652; 85730; 86140; 86850; 86900; 86901; 93005; 93306; 96360; 96361; 99284; A9270-GY; C8929; G0378; G8978-GP-CH; G8979-GP-CH; G8980-GP-CH; G8987-GO-CI; G8988-GO-CI; G8989-GO-CI

== ENCOUNTER 2019-10-23 16:07 | Observation (INO) ==
[2019-10-23 16:45] LABS: Hematocrit 46 % (42-52); Hemoglobin 15.5 g/dL (14.0-18.0); Mean Corpuscular HGB Conc 34 g/dL (31-36); Mean Corpuscular Hemoglobin 31 pg (27-31); Mean Corpuscular Volume 91 fL (80-94); Red Blood Count 5.04 10^6 /uL (4.18-5.48); Red Cell Distribution Width 14 % (10-15)
[2019-10-23 16:46] LABS: INR 4.65 (0.82-1.09)
[2019-10-23 16:49] LABS: ABS Basophils 0.2 10^3/ul (0-0.2); ABS Eosinophils 0.4 10^3/ul (0-0.6); ABS Lymphocytes 2.7 10^3/ul (1.0-4.8); ABS Monocytes 1.2 10^3/ul (0-0.8); Eosinophil % 4.7 %; Lymphocyte % 28.9 %; Mean Platelet Volume 11.4 fL (7.4-10.4); Platelet Count 189 10^3/uL (150-450)
[2019-10-23 16:59] LABS: ALT 16 U/L (7-52); AST 15 U/L (13-39); Albumin 3.9 g/dL (3.2-5.2); Albumin/Globulin Ratio 1.4 (1-3); Alkaline Phosphatase 67 U/L (34-104); Anion Gap 6 mmol/L (2-11); BUN/Creatinine Ratio 14.3 (8-20); Blood Urea Nitrogen 17 mg/dL (6-24); CO2 Carbon Dioxide 29 mmol/L (22-32); Calcium 9.1 mg/dL (8.6-10.3); Chloride 104 mmol/L (101-111); EGFR African American 71.9 (>60); EGFR Non-African American 59.4 (>60); Globulin 2.8 g/dL (2-4); Glucose 103 mg/dL (70-100); Potassium 4.3 mmol/L (3.5-5.0); Sodium 139 mmol/L (135-145); Total Protein 6.7 g/dL (6.4-8.9)
[2019-10-23 17:03] LABS: Troponin I 0.04 ng/mL (<0.03)
[2019-10-23 20:05] LABS: Troponin I 0.03 ng/mL (<0.03)
[2019-10-23] MEDS: IVABRADINE 5 MG PO SCH (21:23)
[2019-10-23 21:27] LABS: Urine Appearance Clear; Urine Bilirubin Negative (Negative); Urine Blood Negative (Negative); Urine Color Yellow; Urine Glucose Negative (Negative); Urine Ketones Negative (Negative); Urine Nitrite Negative (Negative); Urine Protein Negative (Negative); Urine Urobilinogen Negative (Negative)
[2019-10-23 23:57] LABS: Troponin I 0.03 ng/mL (<0.03)
[2019-10-24 05:11] LABS: INR 3.87 (0.82-1.09)
[2019-10-24] MEDS: IVABRADINE 5 MG PO SCH (08:07)
[2019-10-24] MEDS ORDERED: Coenzyme Q10 CAP (NF) ** ENTER STREGNTH IN LABEL DIRECTIONS PO SCH (09:00)
[2019-10-24] MEDS ORDERED: Mirabegron 50 mg TAB (NF) 50 MG TAB PO SCH (09:00)
[2019-10-24] MEDS ORDERED: Amiodarone IV 150 mg/3 ml VIAL IV PUSH ONE (09:56)
[2019-10-24] MEDS ORDERED: Amiodarone 150 mg IVPREMIX 150 MG/100 ML BAG IV ONE (09:57)
[2019-10-24 10:04] LABS: TSH (Thyroid Stimulating Horm) 1.17 mcIU/mL (0.34-5.60)
[2019-10-24 10:06] LABS: Free T3 3.4 pg/mL (2.5-3.9)
[2019-10-24 10:07] LABS: Free T4 1.14 ng/dL (0.61-1.12)
[2019-10-24] MEDS ORDERED: Amiodarone 360 MG IVPREMIX 360 MG/200 ML BAG IV ONE (10:10)
[2019-10-24 12:25] VITALS: BP 102/57
== END 2019-10-24 12:20 | disposition short-term general hospital (02) ==
LOC: ED 16:07 → ICU 16:07
PROVIDERS: ADMIT Internal Medicine; ATTEND Internal Medicine Critical Care Medicine

== ENCOUNTER 2020-09-02 02:54 | Observation (INO) ==
[2020-09-02 04:19] LABS: ABS Basophils 0.2 10^3/ul (0-0.2); ABS Eosinophils 0.4 10^3/ul (0-0.6); ABS Lymphocytes 1.7 10^3/ul (1.0-4.8); ABS Neutrophils 8.1 10^3/ul (1.5-7.7); Eosinophil % 3.2 %; Hematocrit 33 % (42-52); Hemoglobin 10.6 g/dL (14.0-18.0); Lymphocyte % 14.8 %; Mean Corpuscular HGB Conc 32 g/dL (31-36); Mean Corpuscular Hemoglobin 27 pg (27-31); Mean Corpuscular Volume 85 fL (80-94); Mean Platelet Volume 10.2 fL (7.4-10.4); Nucleated Red Blood Cells % 0.1; Platelet Count 249 10^3/uL (150-450); Red Cell Distribution Width 16 % (10-15); White Blood Count 11.3 10^3/uL (3.5-10.8)
[2020-09-02 04:34] LABS: Albumin 3.7 g/dL (3.2-5.2); Albumin/Globulin Ratio 1.4 (1-3); BUN/Creatinine Ratio 24.6 (8-20); Calcium 8.6 mg/dL (8.6-10.3); EGFR African American 69.7 (>60); EGFR Non-African American 57.6 (>60); Globulin 2.7 g/dL (2-4); Total Bilirubin 0.4 mg/dL (0.2-1.0); Total Protein 6.4 g/dL (6.4-8.9)
[2020-09-02 04:45] LABS: INR 5.09 (0.82-1.09)
[2020-09-02 05:27] LABS: Troponin I 0.02 ng/mL (<0.03)
[2020-09-02 06:04] LABS: Urine Appearance Clear; Urine Bilirubin Negative (Negative); Urine Blood Negative (Negative); Urine Color Yellow; Urine Glucose Negative (Negative); Urine Ketones Negative (Negative); Urine Nitrite Negative (Negative); Urine Protein 1+(30 mg/dL) (Negative); Urine Specific Gravity 1.016 (1.002-1.030); Urine Urobilinogen Negative (Negative)
[2020-09-02 06:09] LABS: Urine Bacteria Absent (Absent); Urine Red Blood Cell Trace(0-2/hpf) (Absent); Urine White Blood Cell Trace(0-5/hpf) (Absent)
[2020-09-02] MEDS ORDERED: NS 0.9% 1000 ml BAG 1,000 ML IV ONE (06:32)
[2020-09-02 08:47] LABS: Hematocrit 30 % (42-52); Hemoglobin 9.7 g/dL (14.0-18.0); Mean Corpuscular HGB Conc 32 g/dL (31-36); Mean Corpuscular Hemoglobin 27 pg (27-31); Mean Corpuscular Volume 85 fL (80-94); Mean Platelet Volume 9.9 fL (7.4-10.4); Platelet Count 254 10^3/uL (150-450); Red Blood Count 3.55 10^6 /uL (4.18-5.48); Red Cell Distribution Width 16 % (10-15); White Blood Count 10.9 10^3/uL (3.5-10.8)
[2020-09-02] MEDS: NS 0.9% 1000 ml BAG 1,000 ML IV SCH ×2 (12:59→19:52)
[2020-09-02 14:18] LABS: Hematocrit 32 % (42-52); Hemoglobin 10.4 g/dL (14.0-18.0)
[2020-09-02] MEDS: MIRABEGRON 50 MG PO SCH (14:32)
[2020-09-02] MEDS: COENZYME Q10 100 MG PO SCH (14:32)
[2020-09-03] MEDS: NS 0.9% 1000 ml BAG 1,000 ML IV SCH ×2 (03:00→09:15)
[2020-09-03] MEDS ORDERED: CMCS:Ticagrelor 60 mg TAB (NF) PO SCH (10:00)
[2020-09-03] MEDS: COENZYME Q10 100 MG PO SCH (10:03)
[2020-09-03] MEDS: MIRABEGRON 50 MG PO SCH (10:03)
[2020-09-03 10:18] LABS: ABS Basophils 0.1 10^3/ul (0-0.2); ABS Eosinophils 0.4 10^3/ul (0-0.6); ABS Lymphocytes 1.8 10^3/ul (1.0-4.8); ABS Neutrophils 6.8 10^3/ul (1.5-7.7); Eosinophil % 3.7 %; Hematocrit 30 % (42-52); Hemoglobin 9.5 g/dL (14.0-18.0); Lymphocyte % 17.4 %; Mean Corpuscular HGB Conc 32 g/dL (31-36); Mean Corpuscular Hemoglobin 27 pg (27-31); Mean Corpuscular Volume 85 fL (80-94); Mean Platelet Volume 9.9 fL (7.4-10.4); Platelet Count 273 10^3/uL (150-450); Red Blood Count 3.54 10^6 /uL (4.18-5.48); Red Cell Distribution Width 17 % (10-15); White Blood Count 10.1 10^3/uL (3.5-10.8)
[2020-09-03 10:28] LABS: Albumin 3.7 g/dL (3.2-5.2); Albumin/Globulin Ratio 1.5 (1-3); Calcium 8.6 mg/dL (8.6-10.3); EGFR African American 79.4 (>60); EGFR Non-African American 65.6 (>60); Globulin 2.5 g/dL (2-4); Total Bilirubin 0.4 mg/dL (0.2-1.0); Total Protein 6.2 g/dL (6.4-8.9)
[2020-09-03 10:35] LABS: INR 3.18 (0.82-1.09)
[2020-09-03 11:40] VITALS: BP 119/55
== END 2020-09-03 15:28 | disposition home or self-care (01) ==
LOC: ED 02:54 → MEDTELE 02:54
PROVIDERS: ADMIT Hospitalist; ATTEND Hospitalist

== ENCOUNTER 2020-11-03 10:55 | Inpatient (IN) ==
[2020-11-03] MEDS ORDERED: Lidocaine PATCH 5% PATCH TRANSDERM ONE (11:12)
[2020-11-03] MEDS ORDERED: Orphenadrine Citrate INJ 30 mg/ml 2 ml VIAL (60 mg) IV ONE (11:12)
[2020-11-03 11:44] LABS: ABS Basophils 0.1 10^3/ul (0-0.2); ABS Eosinophils 0.2 10^3/ul (0-0.6); ABS Lymphocytes 1.1 10^3/ul (1.0-4.8); ABS Monocytes 1.1 10^3/ul (0-0.8); ABS Neutrophils 6.9 10^3/ul (1.5-7.7); Eosinophil % 1.8 %; Hematocrit 34 % (42-52); Hemoglobin 10.4 g/dL (14.0-18.0); Mean Corpuscular HGB Conc 31 g/dL (31-36); Mean Corpuscular Hemoglobin 23 pg (27-31); Mean Corpuscular Volume 73 fL (80-94); Mean Platelet Volume 9.5 fL (7.4-10.4); Platelet Count 337 10^3/uL (150-450); Red Blood Count 4.62 10^6 /uL (4.18-5.48); Red Cell Distribution Width 20 % (10-15); White Blood Count 9.4 10^3/uL (3.5-10.8)
[2020-11-03 12:14] LABS: Albumin 3.7 g/dL (3.2-5.2); Albumin/Globulin Ratio 1.1 (1-3); C Reactive Protein 10.68 mg/L (<8.01); Calcium 9.2 mg/dL (8.6-10.3); EGFR African American 65.9 (>60); EGFR Non-African American 54.5 (>60); Globulin 3.3 g/dL (2-4); Potassium 4.2 mmol/L (3.5-5.0); Total Bilirubin 0.4 mg/dL (0.2-1.0)
[2020-11-03 12:55] LABS: Burr Cells 1+; Microcytosis 1+; Schistocytes 1+; Spherocytes 2+
[2020-11-03 12:56] LABS: Platelet Morphology Large; Polychromasia 2+
[2020-11-03] MEDS: oxyCODONE/Acetamin 5/325 mg TAB PO PRN (18:33)
[2020-11-03 20:05] LABS: INR 3.51 (0.82-1.09)
[2020-11-03] MEDS: Lidocaine Patch REMOVE PATCH PATCH OFF SCH (21:15)
[2020-11-04 06:01] LABS: INR 3.83 (0.82-1.09)
[2020-11-04] MEDS: COENZYME Q10 100 MG PO SCH (09:18)
[2020-11-04] MEDS: oxyCODONE/Acetamin 5/325 mg TAB PO PRN (09:18)
[2020-11-04 12:52] LABS: Urine Appearance Cloudy; Urine Bilirubin Negative (Negative); Urine Blood Negative (Negative); Urine Color Yellow; Urine Glucose Negative (Negative); Urine Ketones Negative (Negative); Urine Nitrite Negative (Negative); Urine Protein Negative (Negative); Urine Specific Gravity 1.027 (1.002-1.030); Urine Urobilinogen Negative (Negative)
[2020-11-04 13:36] LABS: Urine Bacteria Absent (Absent); Urine Red Blood Cell 1+(3-5/hpf) (Absent); Urine Squamous Epithelial Cell Present (Absent); Urine White Blood Cell 1+(6-10/hpf) (Absent)
[2020-11-04] MEDS ORDERED: COVID-19 VACCINE, AD26(JANSSEN)/PF 0.5 ML IM ONE (14:00)
[2020-11-04] MEDS: Lidocaine PATCH 5% PATCH TRANSDERM SCH (14:08)
[2020-11-04] MEDS: Lidocaine Patch REMOVE PATCH PATCH OFF SCH ×2 (20:47)
[2020-11-05 05:31] LABS: ABS Basophils 0.1 10^3/ul (0-0.2); ABS Eosinophils 0.4 10^3/ul (0-0.6); ABS Lymphocytes 0.9 10^3/ul (1.0-4.8); ABS Monocytes 1.2 10^3/ul (0-0.8); ABS Neutrophils 6.4 10^3/ul (1.5-7.7); Eosinophil % 4.5 %; Hematocrit 32 % (42-52); Hemoglobin 9.8 g/dL (14.0-18.0); Lymphocyte % 10.2 %; Mean Corpuscular HGB Conc 30 g/dL (31-36); Mean Corpuscular Hemoglobin 22 pg (27-31); Mean Corpuscular Volume 73 fL (80-94); Mean Platelet Volume 9.8 fL (7.4-10.4); Platelet Count 301 10^3/uL (150-450); Red Blood Count 4.39 10^6 /uL (4.18-5.48); Red Cell Distribution Width 20 % (10-15)
[2020-11-05 05:36] LABS: INR 4.32 (0.82-1.09)
[2020-11-05 05:44] LABS: Calcium 9.2 mg/dL (8.6-10.3); EGFR African American 70.4 (>60); EGFR Non-African American 58.1 (>60); Potassium 4.6 mmol/L (3.5-5.0)
[2020-11-05 08:05] LABS: Total Iron Binding Capacity 413 mcg/dL (250-450); Transferrin 295 mg/dL (203-362)
[2020-11-05] MEDS: Lidocaine PATCH 5% PATCH TRANSDERM SCH (08:15)
[2020-11-05] MEDS: COENZYME Q10 100 MG PO SCH (08:17)
[2020-11-05 08:25] LABS: Ferritin 11.5 ng/mL (24-336)
[2020-11-05 09:41] LABS: % Iron Saturation 5 % (15-55); Iron < 20 ug/dL (50-212); Unsaturated Iron Binding < 398 ug/dL
[2020-11-05] MEDS: GARLIC PO SCH (10:31)
[2020-11-05] MEDS: Iron Sucrose 200 MG in NS 0.9% 100 ml BAG 100 ML IVPB SCH (11:59)
[2020-11-05] MEDS: Lidocaine Patch REMOVE PATCH PATCH OFF SCH ×2 (20:04→20:05)
[2020-11-06 05:51] LABS: ABS Basophils 0.1 10^3/ul (0-0.2); ABS Eosinophils 0.2 10^3/ul (0-0.6); ABS Lymphocytes 1.2 10^3/ul (1.0-4.8); ABS Monocytes 1.5 10^3/ul (0-0.8); ABS Neutrophils 4.1 10^3/ul (1.5-7.7); Eosinophil % 2.8 %; Hematocrit 32 % (42-52); Hemoglobin 9.6 g/dL (14.0-18.0); Lymphocyte % 17.3 %; Mean Corpuscular HGB Conc 30 g/dL (31-36); Mean Corpuscular Hemoglobin 22 pg (27-31); Mean Corpuscular Volume 73 fL (80-94); Mean Platelet Volume 9.6 fL (7.4-10.4); Platelet Count 286 10^3/uL (150-450); Red Blood Count 4.36 10^6 /uL (4.18-5.48); Red Cell Distribution Width 20 % (10-15); White Blood Count 7.1 10^3/uL (3.5-10.8)
[2020-11-06 05:53] LABS: EGFR African American 76.9 (>60); EGFR Non-African American 63.6 (>60); Potassium 4.4 mmol/L (3.5-5.0)
[2020-11-06 05:58] LABS: INR 2.98 (0.82-1.09)
[2020-11-06] MEDS: Iron Sucrose 200 MG in NS 0.9% 100 ml BAG 100 ML IVPB SCH (09:09)
[2020-11-06] MEDS: Lidocaine PATCH 5% PATCH TRANSDERM SCH (09:13)
[2020-11-06] MEDS: GARLIC PO SCH (09:15)
[2020-11-06] MEDS: COENZYME Q10 100 MG PO SCH (09:15)
[2020-11-06] MEDS: Warfarin DAILY REMINDER **NOTE FOLLOW UP SCH (18:20)
[2020-11-06] MEDS: Lidocaine Patch REMOVE PATCH PATCH OFF SCH ×2 (21:16)
[2020-11-07] MEDS: GARLIC PO SCH (09:21)
[2020-11-07] MEDS: Lidocaine PATCH 5% PATCH TRANSDERM SCH (09:24)
[2020-11-07] MEDS: Iron Sucrose 200 MG in NS 0.9% 100 ml BAG 100 ML IVPB SCH (09:25)
[2020-11-07] MEDS: COENZYME Q10 100 MG PO SCH (11:17)
[2020-11-07] MEDS: Warfarin DAILY REMINDER **NOTE FOLLOW UP SCH (18:04)
[2020-11-07] MEDS: Lidocaine Patch REMOVE PATCH PATCH OFF SCH ×2 (22:19)
[2020-11-08 04:40] LABS: ABS Lymphocytes 1.3 10^3/ul (1.0-4.8); ABS Monocytes 0.5 10^3/ul (0-0.8); ABS Neutrophils 10.8 10^3/ul (1.5-7.7); Hematocrit 30 % (42-52); Hemoglobin 9.2 g/dL (14.0-18.0); Lymphocyte % 9.9 %; Mean Corpuscular HGB Conc 31 g/dL (31-36); Mean Corpuscular Hemoglobin 22 pg (27-31); Mean Corpuscular Volume 72 fL (80-94); Mean Platelet Volume 10.1 fL (7.4-10.4); Nucleated Red Blood Cells % 0.1; Platelet Count 273 10^3/uL (150-450); Red Blood Count 4.13 10^6 /uL (4.18-5.48); Red Cell Distribution Width 20 % (10-15); White Blood Count 12.6 10^3/uL (3.5-10.8)
[2020-11-08 04:41] LABS: INR 2.92 (0.82-1.09)
[2020-11-08 04:48] LABS: Calcium 8.8 mg/dL (8.6-10.3); EGFR African American 88.7 (>60); EGFR Non-African American 73.3 (>60); Magnesium 1.9 mg/dL (1.9-2.7); Potassium 4.5 mmol/L (3.5-5.0)
[2020-11-08] MEDS: Lidocaine PATCH 5% PATCH TRANSDERM SCH (09:51)
[2020-11-08] MEDS: Iron Sucrose 200 MG in NS 0.9% 100 ml BAG 100 ML IVPB SCH (09:53)
[2020-11-08] MEDS: COENZYME Q10 100 MG PO SCH (09:54)
[2020-11-08] MEDS: GARLIC PO SCH (09:54)
[2020-11-08] MEDS ORDERED: Senna TAB 8.6 mg TAB PO PRN (11:31)
[2020-11-08] MEDS ORDERED: Polyethylene Glycol 3350 17 GM PACKET PO PRN (11:31)
[2020-11-08] MEDS: Magnesium Hydroxide LIQ 30 ML UDC PO SCH ×2 (11:46→21:01)
[2020-11-08] MEDS: Warfarin DAILY REMINDER **NOTE FOLLOW UP SCH (17:53)
[2020-11-08] MEDS: Lidocaine Patch REMOVE PATCH PATCH OFF SCH (21:02)
[2020-11-09] MEDS: Lidocaine PATCH 5% PATCH TRANSDERM SCH (09:25)
[2020-11-09] MEDS: GARLIC PO SCH (09:26)
[2020-11-09] MEDS: Magnesium Hydroxide LIQ 30 ML UDC PO SCH ×3 (09:26→19:42)
[2020-11-09] MEDS: COENZYME Q10 100 MG PO SCH (09:29)
[2020-11-09] MEDS: Iron Sucrose 200 MG in NS 0.9% 100 ml BAG 100 ML IVPB SCH (10:03)
[2020-11-09] MEDS: Warfarin DAILY REMINDER **NOTE FOLLOW UP SCH (15:48)
[2020-11-09] MEDS: Lidocaine Patch REMOVE PATCH PATCH OFF SCH (19:42)
[2020-11-10 04:38] LABS: INR 3.83 (0.82-1.09)
[2020-11-10 04:38] LABS: ABS Basophils 0.1 10^3/ul (0-0.2); ABS Eosinophils 0.1 10^3/ul (0-0.6); ABS Lymphocytes 1.4 10^3/ul (1.0-4.8); ABS Monocytes 1.3 10^3/ul (0-0.8); ABS Neutrophils 11.7 10^3/ul (1.5-7.7); Eosinophil % 0.4 %; Hematocrit 34 % (42-52); Hemoglobin 10.5 g/dL (14.0-18.0); Lymphocyte % 9.7 %; Mean Corpuscular HGB Conc 31 g/dL (31-36); Mean Corpuscular Hemoglobin 23 pg (27-31); Mean Corpuscular Volume 73 fL (80-94); Mean Platelet Volume 9.9 fL (7.4-10.4); Nucleated Red Blood Cells % 0.2; Platelet Count 330 10^3/uL (150-450); Red Blood Count 4.65 10^6 /uL (4.18-5.48); Red Cell Distribution Width 21 % (10-15); White Blood Count 14.5 10^3/uL (3.5-10.8)
[2020-11-10 04:43] LABS: EGFR African American 52.9 (>60); EGFR Non-African American 43.7 (>60); Magnesium 2.2 mg/dL (1.9-2.7); Potassium 4.1 mmol/L (3.5-5.0)
[2020-11-10] MEDS: Magnesium Hydroxide LIQ 30 ML UDC PO SCH ×2 (08:15→21:36)
[2020-11-10] MEDS: GARLIC PO SCH (09:03)
[2020-11-10] MEDS: COENZYME Q10 100 MG PO SCH (09:07)
[2020-11-10] MEDS: Lidocaine PATCH 5% PATCH TRANSDERM SCH (09:07)
[2020-11-10 14:43] LABS: Calcium 9.6 mg/dL (8.6-10.3); EGFR African American 49.9 (>60); EGFR Non-African American 41.2 (>60); Potassium 4.7 mmol/L (3.5-5.0)
[2020-11-10 16:32] LABS: Urine Appearance Cloudy; Urine Bilirubin Negative (Negative); Urine Blood 3+ (Negative); Urine Color Yellow; Urine Glucose Negative (Negative); Urine Ketones Negative (Negative); Urine Nitrite Negative (Negative); Urine Protein 1+(30 mg/dL) (Negative); Urine Specific Gravity 1.016 (1.002-1.030); Urine Urobilinogen Negative (Negative)
[2020-11-10 16:35] LABS: Urine Bacteria 1+ (Absent); Urine Red Blood Cell 3+(>10/hpf) (Absent); Urine White Blood Cell 2+(11-20/hpf) (Absent)
[2020-11-10] MEDS: Warfarin DAILY REMINDER **NOTE FOLLOW UP SCH (17:00)
[2020-11-10 17:39] LABS: Urine Creatinine Concentration 112.31 mg/dL
[2020-11-10] MEDS ORDERED: Furosemide 20 mg/2 ml IV VIAL IV SLOW PU ONE (18:14)
[2020-11-10] MEDS: Lidocaine Patch REMOVE PATCH PATCH OFF SCH (21:40)
[2020-11-11 07:06] LABS: C Reactive Protein 14.31 mg/L (<8.01); Calcium 8.8 mg/dL (8.6-10.3); EGFR African American 59.5 (>60); EGFR Non-African American 49.1 (>60); Magnesium 2.3 mg/dL (1.9-2.7); Potassium 4.2 mmol/L (3.5-5.0)
[2020-11-11 07:10] LABS: ABS Eosinophils 0.3 10^3/ul (0-0.6); ABS Lymphocytes 1.8 10^3/ul (1.0-4.8); ABS Neutrophils 7.4 10^3/ul (1.5-7.7); ABS Nucleated RBC 0.1 10^3/ul; Hematocrit 37 % (42-52); Hemoglobin 10.8 g/dL (14.0-18.0); Lymphocyte % 16.7 %; Mean Corpuscular HGB Conc 30 g/dL (31-36); Mean Corpuscular Hemoglobin 23 pg (27-31); Mean Corpuscular Volume 79 fL (80-94); Mean Platelet Volume 9.9 fL (7.4-10.4); Nucleated Red Blood Cells % 0.6; Platelet Count 269 10^3/uL (150-450); Red Blood Count 4.61 10^6 /uL (4.18-5.48); Red Cell Distribution Width 21 % (10-15); White Blood Count 10.5 10^3/uL (3.5-10.8)
[2020-11-11] MEDS: COENZYME Q10 100 MG PO SCH (07:49)
[2020-11-11] MEDS: Magnesium Hydroxide LIQ 30 ML UDC PO SCH (07:49)
[2020-11-11] MEDS: Lidocaine PATCH 5% PATCH TRANSDERM SCH (07:53)
[2020-11-11] MEDS: GARLIC PO SCH (07:55)
[2020-11-11 15:17] LABS: INR 3.42 (0.86-1.15)
[2020-11-11 15:25] VITALS: BP 119/59
== END 2020-11-11 16:00 | disposition home or self-care (01) | DRG 552 ==
LOC: ED 10:55 → SSU 10:55
PROVIDERS: ADMIT Hospitalist; ATTEND Hospitalist

== ENCOUNTER 2021-03-20 11:52 | Inpatient (IN) ==
[2021-03-20 13:22] LABS: Hematocrit 41 % (42-52); Hemoglobin 13.2 g/dL (14.0-18.0); Mean Corpuscular HGB Conc 32 g/dL (31-36); Mean Corpuscular Hemoglobin 26 pg (27-31); Mean Corpuscular Volume 82 fL (80-94); Mean Platelet Volume 9.4 fL (7.4-10.4); Platelet Count 219 10^3/uL (150-450); Red Blood Count 5.04 10^6 /uL (4.18-5.48); Red Cell Distribution Width 17 % (10-15); White Blood Count 13.1 10^3/uL (3.5-10.8)
[2021-03-20 13:32] LABS: INR 4.15 (0.86-1.15)
[2021-03-20 13:37] LABS: Rapid COVID-19 Molecular Undetected (Undetected)
[2021-03-20 13:38] LABS: Influenza A Molecular Negative (Negative); Influenza B Molecular Negative (Negative)
[2021-03-20 13:50] LABS: Albumin 3.6 g/dL (3.2-5.2); Albumin/Globulin Ratio 0.9 (1-3); C Reactive Protein 163.83 mg/L (<8.01); Calcium 9.3 mg/dL (8.6-10.3); Globulin 3.9 g/dL (2-4); Magnesium 2.2 mg/dL (1.9-2.7); Potassium 4.5 mmol/L (3.5-5.0); Total Bilirubin 0.7 mg/dL (0.2-1.0); Total Protein 7.5 g/dL (6.4-8.9)
[2021-03-20 13:54] LABS: ABS Basophils 0.1 10^3/ul (0-0.2); ABS Lymphocytes 0.9 10^3/ul (1.0-4.8); ABS Monocytes 1.7 10^3/ul (0-0.8); ABS Neutrophils 10.4 10^3/ul (1.5-7.7); Eosinophil % 0.1 %; Lymphocyte % 6.7 %
[2021-03-20 13:56] LABS: Urine Appearance Cloudy; Urine Bilirubin Negative (Negative); Urine Blood 1+ (Negative); Urine Color Yellow; Urine Glucose Negative (Negative); Urine Ketones Negative (Negative); Urine Nitrite Negative (Negative); Urine Protein 2+(100 mg/dL) (Negative); Urine Specific Gravity 1.018 (1.002-1.030); Urine Urobilinogen Negative (Negative)
[2021-03-20 13:58] LABS: Anisocytosis 1+; Hypochromasia 1+
[2021-03-20 14:01] LABS: Urine Bacteria 1+ (Absent); Urine Red Blood Cell 2+(6-10/hpf) (Absent); Urine White Blood Cell 3+(>20/hpf) (Absent)
[2021-03-20] MEDS ORDERED: cefTRIAXone 1 gm/50 mL NS BAG 1 GM/50 ML BAG IV ONE (14:02)
[2021-03-20] MEDS ORDERED: Ondansetron 4 mg VIAL 2 MG/ML 2 ml VIAL IV PRN (14:33)
[2021-03-20] MEDS ORDERED: Albuterol HFA INHALER 8 gm MDI INH PRN (17:22)
[2021-03-20] MEDS ORDERED: Enoxaparin 40 MG/0.4 ML SYR SUBCUT SCH (18:00)
[2021-03-20 18:42] LABS: Uric Acid 5.5 mg/dL (4.4-7.6)
[2021-03-20 20:59] LABS: PSA Screening Total 3.571 ng/mL (0-4.000)
[2021-03-21] MEDS ORDERED: Warfarin per PHARMACY **NOTE FOLLOW UP SCH (08:00)
[2021-03-21] MEDS: cefTRIAXone 1 gm/50 mL NS BAG 1 GM/50 ML BAG IVPB SCH (08:10)
[2021-03-21] MEDS: Cholecalciferol (VIT D3) 1,000 unit TAB PO SCH (08:11)
[2021-03-21] MEDS: Mirabegron 50 mg ER TAB (NF) PO SCH (08:11)
[2021-03-21 08:12] LABS: Hematocrit 38 % (42-52); Hemoglobin 12.2 g/dL (14.0-18.0); Mean Corpuscular HGB Conc 33 g/dL (31-36); Mean Corpuscular Hemoglobin 26 pg (27-31); Mean Corpuscular Volume 81 fL (80-94); Mean Platelet Volume 9.3 fL (7.4-10.4); Platelet Count 207 10^3/uL (150-450); Red Blood Count 4.63 10^6 /uL (4.18-5.48); Red Cell Distribution Width 17 % (10-15); White Blood Count 12.2 10^3/uL (3.5-10.8)
[2021-03-21 08:25] LABS: ABS Lymphocytes 1.1 10^3/ul (1.0-4.8); ABS Monocytes 1.8 10^3/ul (0-0.8); ABS Neutrophils 9.2 10^3/ul (1.5-7.7); Eosinophil % 0.3 %; Nucleated Red Blood Cells % 0.1
[2021-03-21 08:29] LABS: Potassium 4.1 mmol/L (3.5-5.0)
[2021-03-21 08:30] LABS: Calcium 8.8 mg/dL (8.6-10.3); Magnesium 1.9 mg/dL (1.9-2.7); Phosphorus 3.2 mg/dL (2.5-5.0)
[2021-03-21] MEDS ORDERED: Furosemide 20 mg/2 ml IV VIAL IV SLOW PU ONE (09:44)
[2021-03-21 11:57] LABS: INR 5.1 (0.86-1.15)
[2021-03-21] MEDS ORDERED: Warfarin - No Order Today **NOTE FOLLOW UP ONE (17:00)
[2021-03-22 06:14] LABS: Hematocrit 38 % (42-52); Hemoglobin 12.2 g/dL (14.0-18.0); Mean Corpuscular HGB Conc 32 g/dL (31-36); Mean Corpuscular Hemoglobin 26 pg (27-31); Mean Corpuscular Volume 81 fL (80-94); Mean Platelet Volume 9.7 fL (7.4-10.4); Platelet Count 200 10^3/uL (150-450); Red Blood Count 4.64 10^6 /uL (4.18-5.48); Red Cell Distribution Width 17 % (10-15)
[2021-03-22 06:19] LABS: INR 4.15 (0.86-1.15)
[2021-03-22 06:27] LABS: Calcium 8.8 mg/dL (8.6-10.3); Magnesium 1.9 mg/dL (1.9-2.7)
[2021-03-22] MEDS: Cholecalciferol (VIT D3) 1,000 unit TAB PO SCH (08:19)
[2021-03-22] MEDS: Mirabegron 50 mg ER TAB (NF) PO SCH (08:20)
[2021-03-22] MEDS: cefTRIAXone 1 gm/50 mL NS BAG 1 GM/50 ML BAG IVPB SCH (08:20)
[2021-03-22] MEDS ORDERED: Flu vaccine *QUAD* 2021-22* 0.5 ML SYRINGE IM ONE (09:00)
[2021-03-22] MEDS: Albuterol/Ipratropium NEB.SOL (2.5/0.5 MG) 3 ML NEB.SOLN INH SCH ×2 (10:17→20:07)
[2021-03-22] MEDS: Ampicillin ADVAN 1 GM in NS 0.9% 50 ML 50 ML IVPB SCH ×3 (12:29→21:18)
[2021-03-22] MEDS ORDERED: Furosemide 20 mg/2 ml IV VIAL IV ONE (13:47)
[2021-03-22] MEDS ORDERED: Magnesium Sulfate 2 gm BAG 2 GM/50 ML BAG IVPB ONE (13:48)
[2021-03-22 15:39] LABS: UR Microalbumin (mg/L) 100.7 mg/L; Urine Creatinine 70.73 mg/dL; Urine Creatinine Concentration 70.73 mg/dL; Urine Microalbumin/Creatinine 142.3 (<31)
[2021-03-22] MEDS ORDERED: Warfarin - No Order Today **NOTE FOLLOW UP ONE (17:00)
[2021-03-23] MEDS: Ampicillin ADVAN 1 GM in NS 0.9% 50 ML 50 ML IVPB SCH ×4 (04:32→22:32)
[2021-03-23 05:53] LABS: Hematocrit 38 % (42-52); Hemoglobin 11.9 g/dL (14.0-18.0); Mean Corpuscular HGB Conc 32 g/dL (31-36); Mean Corpuscular Hemoglobin 26 pg (27-31); Mean Corpuscular Volume 82 fL (80-94); Mean Platelet Volume 9.1 fL (7.4-10.4); Platelet Count 269 10^3/uL (150-450); Red Blood Count 4.63 10^6 /uL (4.18-5.48); Red Cell Distribution Width 17 % (10-15); White Blood Count 9.5 10^3/uL (3.5-10.8)
[2021-03-23 06:05] LABS: INR 3.69 (0.86-1.15)
[2021-03-23 06:11] LABS: Calcium 8.9 mg/dL (8.6-10.3); Magnesium 2.1 mg/dL (1.9-2.7)
[2021-03-23] MEDS: Albuterol/Ipratropium NEB.SOL (2.5/0.5 MG) 3 ML NEB.SOLN INH SCH ×2 (07:34→20:06)
[2021-03-23] MEDS: Olodaterol Inhaler MDI INH SCH (07:34)
[2021-03-23] MEDS: Mirabegron 50 mg ER TAB (NF) PO SCH (09:04)
[2021-03-23] MEDS: Cholecalciferol (VIT D3) 1,000 unit TAB PO SCH (09:05)
[2021-03-23] MEDS: Iron Sucrose 200 MG in NS 0.9% 100 ml BAG 100 ML IVPB SCH (16:29)
[2021-03-23] MEDS ORDERED: Warfarin - No Order Today **NOTE FOLLOW UP ONE (17:00)
[2021-03-24] MEDS: Ampicillin ADVAN 1 GM in NS 0.9% 50 ML 50 ML IVPB SCH ×2 (03:44→10:04)
[2021-03-24 06:45] LABS: Hematocrit 37 % (42-52); Hemoglobin 12.2 g/dL (14.0-18.0); Mean Corpuscular HGB Conc 33 g/dL (31-36); Mean Corpuscular Hemoglobin 27 pg (27-31); Mean Corpuscular Volume 81 fL (80-94); Mean Platelet Volume 9.5 fL (7.4-10.4); Platelet Count 253 10^3/uL (150-450); Red Blood Count 4.59 10^6 /uL (4.18-5.48); Red Cell Distribution Width 16 % (10-15); White Blood Count 9.6 10^3/uL (3.5-10.8)
[2021-03-24 06:46] LABS: INR 2.99 (0.86-1.15)
[2021-03-24 07:08] LABS: Calcium 8.9 mg/dL (8.6-10.3)
[2021-03-24] MEDS: Albuterol/Ipratropium NEB.SOL (2.5/0.5 MG) 3 ML NEB.SOLN INH SCH (07:39)
[2021-03-24] MEDS: Olodaterol Inhaler MDI INH SCH (08:37)
[2021-03-24] MEDS: Cholecalciferol (VIT D3) 1,000 unit TAB PO SCH (08:53)
[2021-03-24] MEDS: Iron Sucrose 200 MG in NS 0.9% 100 ml BAG 100 ML IVPB SCH (08:53)
[2021-03-24] MEDS: Mirabegron 50 mg ER TAB (NF) PO SCH (08:56)
[2021-03-24 08:58] VITALS: BP 125/65
== END 2021-03-24 15:20 | disposition home or self-care (01) | DRG 871 ==
LOC: ED 11:52 → MED 14:35 → SUATTDRO 14:35 → MED 16:36
PROVIDERS: ADMIT Internal Medicine; ATTEND Hospitalist